=== PATIENT | female | born 1975 ===

== ENCOUNTER 2020-04-19 00:50 | Emergency (ER) | payer OTHER, SELFPAY ==
[2020-04-19 00:52] VITALS: BP 115/71; BP 166/86; PULSE 90; RESP 18; TEMP 36.4; O2SAT 100; O2SAT 98; BMI 32.5
--- NOTE | 2020-04-19 01:45 | ED.DENTAL ---
HPI - Dental/Oral General Chief complaint: Dental/Oral Stated complaint: toothache Time Seen by Provider: 04/19/20 01:45 Source: patient Mode of arrival: ambulatory Limitations: no limitations History of Present Illness HPI Narrative: This is a 45-year-old female who presents with worsening left lower dental pain with both heat and cold intolerance and mild facial swelling along the left cheek area. Otherwise, she denies any fevers, chills, difficulty swallowing, or difficulty breathing. Related Data Previous Rx's Medication Instructions Recorded irbesartan 300 mg tablet 300 mg PO DAILY #30 tab 03/16/20 lorazepam 1 mg tablet 1 mg PO BID PRN 30 Days #60 tab 04/01/20 oxycodone-acetaminophen 5 mg-325 1 tab PO .1 to 2 times a day PRN 04/01/20 mg tablet 28 Days #56 tab amoxicillin-pot clavulanate 1 tab PO Q12H 7 Days #14 tab 04/19/20 [Augmentin] Allergies Allergy/AdvReac Type Severity Reaction Status Date / Time nut - unspecified [NUTS] Allergy Severe HIVES, Unverified 02/06/20 15:23 ANAPHYLAXIS N.K.D.A. Allergy Unknown Uncoded 08/22/14 00:00 Review of Systems Review of Systems: Pertinent positives and negatives as stated in HPI 10 point review of systems is otherwise negative. PMFSH Past Medical History Source: nursing notes reviewed Medical History Anemia Fibromyalgia HTN (hypertension) Scoliosis Social History Social History Advance Directives: No Advance Directives Information Provided: No Physical Exam Vital Signs: Vital Signs: Last Vital Signs Temp 97.6 F 04/19/20 00:52 Pulse 97 04/19/20 02:00 Resp 20 04/19/20 02:00 BP 138/72 04/19/20 02:00 Pulse Ox 100 04/19/20 02:00 Body Mass Index 32.5 VITAL SIGNS: Reviewed. GENERAL: Well developed, well nourished, in no acute distress. HEAD: Normocephalic/atraumatic, EYES: PERRLA, EOMI intact without pain, no nystagmus/pallor/icterus noted EARS: Ext canals without abnormality, TMs non-bulging and non-erythematous NOSE: Nares patent bilateral OROPHARYNX: no oral lesions noted, posterior pharynx clear and non-erythematous without noted tonsillar enlargement/erythema/exudates , there is a noted left lower molar with extensive caries but no obvious abscess noted there is some mild swelling to the left face without trismus or involvement of the ear. NECK: Supple, no adenopathy LUNGS: Normal breath sounds. No adventitious sounds or accessory muscle use. SpO2<100> CARDIOVASCULAR: Regular rate and rhythm without noted murmurs, no JVD or lower extremity edema. ABDOMEN: Soft, non-tender, non-distended with bowel sounds. No rigidity. No guarding. No palpable masses or hernias noted MUSCULOSKELETAL: No tenderness, deformities, or effusions noted on gross inspection. EXTREMITIES: No cyanosis, clubbing or edema. SKIN: Inspection of the skin reveals no rashes, ulcerations, jaundice, pallor, or petechiae. NEUROLOGIC: Alert and oriented x 4. Strength and sensation to light touch were grossly intact x 4. Course Course Course Narrative: This is a 45-year-old female with history and clinical presentation consistent with left lower molar dental caries and patient will be treated with combination analgesics as well as initial antibiotics and then discharged to home in stable condition with a prescription and strong encouragement to follow up with a dental facility on Monday. Discharge Plan Discharge Clinical Impression: Dental caries Patient Disposition: Home, Self-Care Instructions: Dental Abscess (ED), Toothache (ED) Additional Instructions: 1. Tylenol 1000 mg, orally, every 6 hours as needed for pain control. Do not exceed 4000 mg within 24 hours. 2. Ibuprofen 400 mg, orally with milk food, every 6 hours as needed for pain control. 3. may use [id number] Anbesol or Orajel as directed on the outside packaging for additional symptom control. 4. may use ice for 5-10 minutes, 3 to 4 times a day, for additional symptom control. Do not apply ice directly to exposed skin. 5. please contact a dental facility Monday to arrange for immediate follow-up. The patient and/or family acknowledge understanding of results (as applicable), diagnosis, treatment plan, need for follow up, and symptoms that should prompt a return to the emergency room. Prescriptions: New amoxicillin-pot clavulanate [Augmentin] 875-125 mg tablet 1 tab PO Q12H 7 Days Qty: 14 RF: 0 No Action irbesartan 300 mg tablet 300 mg PO DAILY Qty: 30 RF: 3 oxycodone-acetaminophen 5-325 mg tablet 1 tab PO .1 to 2 times a day PRN (Reason: pain) 28 Days Qty: 56 RF: 0 lorazepam 1 mg tablet 1 mg PO BID PRN (Reason: anxiety) 30 Days Qty: 60 RF: 0
[2020-04-19 02:00] VITALS: BP 138/72; PULSE 97; RESP 20; O2SAT 100
[2020-04-19] MEDS: Amoxicillin/Potassium Clav 875 MG TABLET PO (02:11)
[2020-04-19] MEDS: Acetaminophen 325 MG TABLET 975 MG PO (02:11)
== END 2020-04-19 02:31 | disposition home or self-care (01) ==
LOC: HO.ED 01:55
PROVIDERS: Emergency Provider Student in an Organized Health Care Education/Training Program; PCP Internal Medicine
DX: K02.9 Dental caries, unspecified (principal); Z79.899 Other long term (current) drug therapy
CPT/HCPCS: 96372; 99284; J1885

== ENCOUNTER 2020-07-27 01:09 | Emergency (ER) | payer OTHER, SELFPAY ==
--- NOTE | ~2020-07-27 | CT_ITS ---
EXAMINATION: CT ABDOMEN AND PELVIS WITH CONTRAST CLINICAL INFORMATION: Right lower quadrant pain COMPARISON: None TECHNIQUE: Multidetector volumetric images were obtained from the superior aspect of the liver through the pubic symphysis following administration 76 mL of Omnipaque 350 intravenous contrast. Sagittal and coronal reformatted images were obtained on the technologist's workstation. Oral contrast: No This CT examination was performed using dose optimization techniques as appropriate, variously including the following: *Automated exposure control *Adjustment of mA and/or kV according to patient size (this includes techniques or standardized protocols for targeted exams where dose is matched to indication/reason for exam; i.e. extremities or head) *Use of iterative reconstruction technique DLP: 745 mGy-cm FINDINGS: Partially limited assessment in some regions due to motion artifact. LUNG BASES: The visualized lung bases are unremarkable. LIVER, GALLBLADDER, AND BILIARY TREE: The liver is normal in size, shape, and attenuation. A small focal region of hypoattenuation adjacent to the falciform ligament could be due to focal fatty infiltration or alterations in hepatic perfusion. No biliary ductal dilatation is present. The gallbladder is unremarkable with no evidence of radiopaque gallstones, gallbladder wall thickening, or obvious pericholecystic inflammatory changes. PANCREAS: Unremarkable. SPLEEN: Unremarkable. ADRENAL GLANDS: Unremarkable. KIDNEYS AND URETERS: The kidneys are normal in size, shape, and attenuation. No hydronephrosis, hydroureter, or obstructing calculi seen. Subcentimeter hypodensity in the upper right kidney is suggestive of a cyst though too small to characterize. No perinephric stranding. BLADDER: Unremarkable. GASTROINTESTINAL TRACT: Small hiatal hernia. No evidence of bowel obstruction or wall thickening. The appendix is unremarkable. No free fluid or free air is seen. ABDOMINAL WALL: Fat-containing umbilical hernia is present. LYMPH NODES: Normal. VASCULAR: Unremarkable. PELVIC VISCERA: Unremarkable. OSSEOUS STRUCTURES: Unremarkable. CT/CT abdomen pelvis w con IMPRESSION: 1. No acute findings identified in the abdomen/pelvis. Normal appendix. 2. Small hiatal hernia. 3. Fat-containing inguinal hernia.
--- NOTE | 2020-07-27 01:15 | ED.ABDPAIN ---
HPI - Abdominal Pain General Chief Complaint: Abdominal Pain Stated Complaint: LOWER ABD PAIN Time Seen by Provider: 07/27/20 01:11 Source: patient Mode of arrival: ambulatory Limitations: no limitations History of Present Illness HPI narrative: 45 yo female with 1 week of lower abdominal pain and nausea, the abdomen radiates across back, has had loose stools as well, no prior events MD elicited complaint: abdominal pain Pertinent past history: none Onset (ago): week(s) (1) Pain Consistency: intermittent Location: RLQ, LLQ and suprapubic Severity: moderate Quality: cramping Radiation: back Migration to: no migration Exacerbating factors: nothing Relieving factors: nothing Associated symptoms: nausea and diarrhea Related Data Previous Rx's Medication Instructions Recorded amoxicillin-pot clavulanate 1 tab PO Q12H 7 Days #14 tab 04/19/20 [Augmentin] lorazepam 1 mg tablet 1 mg PO BID PRN 30 Days #60 tab 07/01/20 oxycodone-acetaminophen 5 mg-325 1 tab PO .1 to 2 times a day PRN 07/01/20 mg tablet 28 Days #56 tab cyclobenzaprine 10 mg PO TID PRN #14 tab 07/27/20 dicyclomine 20 mg PO TID PRN #30 tab 07/27/20 irbesartan 300 mg tablet 300 mg PO DAILY #30 tab 07/27/20 ondansetron 4 mg PO Q8H PRN #20 tab 07/27/20 Allergies Allergy/AdvReac Type Severity Reaction Status Date / Time nut - unspecified [NUTS] Allergy Severe HIVES, Unverified 02/06/20 15:23 ANAPHYLAXIS N.K.D.A. Allergy Unknown Uncoded 08/22/14 00:00 Review of Systems Review of Systems Constitutional : No Weight loss, No Fever, No Chills ENT/Mouth : No sore throat, No Rhinorrhea Eyes: No Swelling, No Redness Cardiovascular : No Chest Pain, No SOB, NoEdema Respiratory : No Cough, No Sputum, No Wheezing Gastrointestinal : Positive Nausea, no Vomiting, positive Diarrhea, positive abdominal Pain, No Hematochezia, No Melena Genitourinary : No Dysuria, No Urinary Frequency, No Hematuria, No Urgency Musculoskeletal : No joint pain, No Myalgias, No Joint Swelling Skin : No Skin Lesions, No rash Neuro : No Weakness, No Numbness, No Dizziness, No Headache Psych : No Anxiety/Panic, No Depression Heme/Lymph: No Bruising, No Lymphadenopathy Endocrine : No Polyuria, No Polydipsia All other systems reviewed and are negative. Physical Exam Vital Signs: Vital Signs: Last Vital Signs Temp 98.1 F 07/27/20 01:24 Pulse 94 07/27/20 01:24 Resp 16 07/27/20 01:24 BP 180/83 H 07/27/20 01:24 Pulse Ox 100 07/27/20 01:24 Body Mass Index 34.4 Appearance: Alert. Oriented X3. No acute distress. Anxious Eyes: Pupils equal, round and reactive to light. ENT: Pharynx normal. Neck: Normal inspection. Neck supple. CVS: Normal heart rate and rhythm. Pulses normal. Respiratory: No respiratory distress. Breath sounds normal. Abdomen: Soft and moderate RLQ and suprapubic ttp no rebound or guarding, hernia noted midline but no discoloration, soft, no ttp Skin: Skin warm and dry. Normal skin color. Normal skin turgor. Extremities: No lower extremity edema. No calf ttp Neuro: Oriented X 3. No motor deficit. No sensory deficit. Course Course Course Narrative: no acute findings, hx of anemia will check guiac stool - if negative, will DC home with medications patient declines occult stool study patient feels much better, stable for DC MDM - Abdominal Pain MDM Narrative Medical decision making narrative: 45 yo female with hx of HTN, known hernia, s/p c section who comes in with 1 week or worsening lower abdominal pain, nausea, diarrhea was on antibiotics 4 weeks ago for a dental infection, at this time will need labs, IVF, CT scan for colitis/appendicitis, UA, IVF, IV toradol for pain, IV ativan for anxiety. Lab Data Result diagrams: 07/27/20 01:39 07/27/20 01:39 Labs: Lab Results 07/27/20 07/27/20 07/27/20 Range/Units 01:37 01:39 01:39 WBC 7.3 (4.8-10.8) X10*3/uL RBC 4.06 L (4.20-5.50) X10*6/uL Hgb 8.7 L (12.0-16.0) g/dl Hct 30.0 L (37-47) % MCV 73.9 L (80-98) fL MCH 21.4 L (27.0-33.0) pg MCHC 29.0 L (31.0-35.0) g/dl RDW 16.9 H (11.0-16.0) % Plt Count 287 (160-400) X10*3/uL MPV 10.4 (9.4-12.3) fL Immature Gran % (Auto) 0.1 (0.0-0.4) % Neut % (Auto) 54.5 (45-73) % Lymph % (Auto) 33.7 (20-40) % [place] % (Auto) 7.8 (2-11) % Eos % (Auto) 3.6 (0-4) % Baso % (Auto) 0.3 (0-2) % Lymph # (Auto) 2.5 (1.2-4.9) X10*3/uL [place] # (Auto) 0.6 (0.1-1.2) X10*3/uL Eos # (Auto) 0.3 (0.0-0.4) X10*3/uL Baso # (Auto) 0.0 (0.0-0.2) X10*3/uL Abs Immat Gran (auto) 0.01 (0.00-0.03) X10*3/uL Absolute Neuts (auto) 4.0 (2.0-8.3) X10*3/uL Absolute Nucleated RBC 0.000 (0.0-0.012) X10*3/uL Nucleated RBC % (auto) 0.0 (0.0-0.2) /100WBC PT (10.8-13.0) SEC INR (0.9-1.1) APTT (24.1-38.0) SEC Hold Blue Top Sodium 140 (135-145) mmol/L Potassium 3.5 (3.3-5.1) mmol/L Chloride 107 (96-108) mmol/L Carbon Dioxide 25 (22-29) mmol/L Anion Gap 12 (12-20) BUN 7 L (9-16) mg/dL Creatinine 0.75 (0.5-1.4) mg/dL Estim Creat Clear Calc 124.0 Estimated GFR > 60 Random Glucose 122 H (60-115) mg/dL Calcium 9.1 (8.4-10.2) mg/dL Magnesium 1.7 (1.6-2.6) mg/dL Total Bilirubin 0.4 (0.0-1.0) mg/dL Direct Bilirubin 0.2 (0.0-0.5) mg/dL AST 16 (5-31) U/L ALT 16 (0-31) U/L Alkaline Phosphatase 55 (39-117) U/L Total Protein 7.1 (6.5-8.0) g/dL Albumin 4.5 (3.5-5.0) g/dL Lipase (8-78) U/L Urine Color Urine Appearance Urine pH (5.0-8.0) Ur Specific [place] (1.005-1.025) Urine Protein (NEG-TRACE) MG/DL Urine Glucose (UA) (NEG) MG/DL Urine Ketones (NEG) MG/DL Urine Blood (NEG) Urine Nitrite (NEG) Ur Leukocyte Esterase (NEG) Urine Test (NEGATIVE) COVID-19 ([facility]) Negative (Negative) COVID-19 Clin Com See Note 07/27/20 07/27/20 07/27/20 Range/Units 01:39 01:39 01:52 WBC (4.8-10.8) X10*3/uL RBC (4.20-5.50) X10*6/uL Hgb (12.0-16.0) g/dl Hct (37-47) % MCV (80-98) fL MCH (27.0-33.0) pg MCHC (31.0-35.0) g/dl RDW (11.0-16.0) % Plt Count (160-400) X10*3/uL MPV (9.4-12.3) fL Immature Gran % (Auto) (0.0-0.4) % Neut % (Auto) (45-73) % Lymph % (Auto) (20-40) % [place] % (Auto) (2-11) % Eos % (Auto) (0-4) % Baso % (Auto) (0-2) % Lymph # (Auto) (1.2-4.9) X10*3/uL [place] # (Auto) (0.1-1.2) X10*3/uL Eos # (Auto) (0.0-0.4) X10*3/uL Baso # (Auto) (0.0-0.2) X10*3/uL Abs Immat Gran (auto) (0.00-0.03) X10*3/uL Absolute Neuts (auto) (2.0-8.3) X10*3/uL Absolute Nucleated RBC (0.0-0.012) X10*3/uL Nucleated RBC % (auto) (0.0-0.2) /100WBC PT 13.9 H (10.8-13.0) SEC INR 1.2 H (0.9-1.1) APTT 32.8 (24.1-38.0) SEC Hold Blue Top SEE NOTE Sodium (135-145) mmol/L Potassium (3.3-5.1) mmol/L Chloride (96-108) mmol/L Carbon Dioxide (22-29) mmol/L Anion Gap (12-20) BUN (9-16) mg/dL Creatinine (0.5-1.4) mg/dL Estim Creat Clear Calc Estimated GFR Random Glucose (60-115) mg/dL Calcium (8.4-10.2) mg/dL Magnesium (1.6-2.6) mg/dL Total Bilirubin (0.0-1.0) mg/dL Direct Bilirubin (0.0-0.5) mg/dL AST (5-31) U/L ALT (0-31) U/L Alkaline Phosphatase (39-117) U/L Total Protein (6.5-8.0) g/dL Albumin (3.5-5.0) g/dL Lipase 14 (8-78) U/L Urine Color YELLOW Urine Appearance CLEAR Urine pH 5.5 (5.0-8.0) Ur Specific [place] >= 1.030 H (1.005-1.025) Urine Protein NEG (NEG-TRACE) MG/DL Urine Glucose (UA) NEG (NEG) MG/DL Urine Ketones NEG (NEG) MG/DL Urine Blood NEG (NEG) Urine Nitrite NEG (NEG) Ur Leukocyte Esterase NEG (NEG) Urine Test (NEGATIVE) COVID-19 ([facility]) (Negative) COVID-19 Clin Com 03/08/21 Range/Units 01:52 WBC (4.8-10.8) X10*3/uL RBC (4.20-5.50) X10*6/uL Hgb (12.0-16.0) g/dl Hct (37-47) % MCV (80-98) fL MCH (27.0-33.0) pg MCHC (31.0-35.0) g/dl RDW (11.0-16.0) % Plt Count (160-400) X10*3/uL MPV (9.4-12.3) fL Immature Gran % (Auto) (0.0-0.4) % Neut % (Auto) (45-73) % Lymph % (Auto) (20-40) % [place] % (Auto) (2-11) % Eos % (Auto) (0-4) % Baso % (Auto) (0-2) % Lymph # (Auto) (1.2-4.9) X10*3/uL [place] # (Auto) (0.1-1.2) X10*3/uL Eos # (Auto) (0.0-0.4) X10*3/uL Baso # (Auto) (0.0-0.2) X10*3/uL Abs Immat Gran (auto) (0.00-0.03) X10*3/uL Absolute Neuts (auto) (2.0-8.3) X10*3/uL Absolute Nucleated RBC (0.0-0.012) X10*3/uL Nucleated RBC % (auto) (0.0-0.2) /100WBC PT (10.8-13.0) SEC INR (0.9-1.1) APTT (24.1-38.0) SEC Hold Blue Top Sodium (135-145) mmol/L Potassium (3.3-5.1) mmol/L Chloride (96-108) mmol/L Carbon Dioxide (22-29) mmol/L Anion Gap (12-20) BUN (9-16) mg/dL Creatinine (0.5-1.4) mg/dL Estim Creat Clear Calc Estimated GFR Random Glucose (60-115) mg/dL Calcium (8.4-10.2) mg/dL Magnesium (1.6-2.6) mg/dL Total Bilirubin (0.0-1.0) mg/dL Direct Bilirubin (0.0-0.5) mg/dL AST (5-31) U/L ALT (0-31) U/L Alkaline Phosphatase (39-117) U/L Total Protein (6.5-8.0) g/dL Albumin (3.5-5.0) g/dL Lipase (8-78) U/L Urine Color Urine Appearance Urine pH (5.0-8.0) Ur Specific [place] (1.005-1.025) Urine Protein (NEG-TRACE) MG/DL Urine Glucose (UA) (NEG) MG/DL Urine Ketones (NEG) MG/DL Urine Blood (NEG) Urine Nitrite (NEG) Ur Leukocyte Esterase (NEG) Urine Test NEGATIVE (NEGATIVE) COVID-19 ([facility]) (Negative) COVID-19 Clin Com Discharge Plan Discharge Clinical Impression: Abdominal pain, Anemia Patient Disposition: Home, Self-Care Instructions: Abdominal Pain (ED), Anemia (ED) Additional Instructions: return to ED for any worsening symptoms or concerns TAKE YOUR IRON PLEASE YOUR COUNTS DROPPED TO 8.7 YOUR COVID TEST WAS NEGATIVE Prescriptions: New cyclobenzaprine 10 mg tablet 10 mg PO TID PRN (Reason: muscle spasm) Qty: 14 RF: 0 dicyclomine 20 mg tablet 20 mg PO TID PRN (Reason: abdominal discomfort) Qty: 30 RF: 0 ondansetron 4 mg tablet,disintegrating 4 mg PO Q8H PRN (Reason: nausea and vomiting) Qty: 20 RF: 0 No Action oxycodone-acetaminophen 5-325 mg tablet 1 tab PO .1 to 2 times a day PRN (Reason: pain) 28 Days Qty: 56 RF: 0 lorazepam 1 mg tablet 1 mg PO BID PRN (Reason: anxiety) 30 Days Qty: 60 RF: 0 irbesartan 300 mg tablet 300 mg PO DAILY Qty: 30 RF: 3 amoxicillin-pot clavulanate [Augmentin] 875-125 mg tablet 1 tab PO Q12H 7 Days Qty: 14 RF: 0 Referrals: Bala Vasquez MD [Primary Care Provider] - 2 days (if not better) Stand Alone Forms: Work/School Release [facility] Past Medical History Attestation statement: The following information was validated with the patient. Medical History Anemia Fibromyalgia Hernia HTN (hypertension) Scoliosis Surgical History Hx of section Social History Social History (Updated 07/27/20 @ 01:30 by Kimberly Turner DO) Smoking Status: Never smoker Use of substances other than those prescribed or required for medical reasons: No Advance Directives: No
[2020-07-27 01:24] VITALS: BP 180/83; PULSE 94; RESP 16; TEMP 36.7; O2SAT 100; BMI 34.4
--- NOTE | 2020-07-27 01:33 | PC.NURSE ---
PT TO ROOM WITH C/O LOWER ABD PAIN WHICH RADIATES INTO SAVANA SIDES. +NAUSEA, NO VOMITING. PT ARRIVES ALERT, RESPIRATIONS EASY, N/L. SKIN W/D. PT AWAITING FOR MD'S EVAL.
[2020-07-27 01:57] LABS: MANUAL DIFF FLAG NO
[2020-07-27 01:59] LABS: Glucose Urine UA NEG (NEG); Leukocyte Esterase Urine NEG (NEG); Nitrite Urine NEG (NEG); PH 5.5 (5.0-8.0); Specific Gravity - Urine >= 1.030 (1.005-1.025); Urine Blood NEG (NEG); Urine Ketones NEG (NEG); Urine Protein NEG (NEG-TRACE)
[2020-07-27] MEDS: LORazepam 2 MG/ML VIAL 1 MG IVPUSH (01:59)
[2020-07-27 02:00] LABS: Basophils Percent Auto 0.3 % (0-2); Eosinophils Absolute Auto 0.3 X10*3/uL (0.0-0.4); Eosinophils Percent Auto 3.6 % (0-4); Hemoglobin 8.7 g/dl (12.0-16.0); Imm Gran Abs Auto 0.01 X10*3/uL (0.00-0.03); Imm Gran Pct Auto 0.1 % (0.0-0.4); Lymphocytes Absolute Auto 2.5 X10*3/uL (1.2-4.9); Lymphocytes Percent Auto 33.7 % (20-40); Mean Corpuscular Hemoglobin 21.4 pg (27.0-33.0); Mean Corpuscular Volume 73.9 fL (80-98); Mean Platelet Volume 10.4 fL (9.4-12.3); Monocytes Absolute Auto 0.6 X10*3/uL (0.1-1.2); Monocytes Percent Auto 7.8 % (2-11); Neutrophils Percent Auto 54.5 % (45-73); Platelet Count 287 X10*3/uL (160-400); Red Blood Count 4.06 X10*6/uL (4.20-5.50); Red Cell Distribution Width 16.9 % (11.0-16.0); White Blood Count 7.3 X10*3/uL (4.8-10.8)
[2020-07-27] MEDS: ondansetron HCL 4 MG/2 ML VIAL IVPUSH (02:00)
[2020-07-27] MEDS: 0.9 % Sodium Chloride 1,000 ML 999 ML IVCONT (02:01)
[2020-07-27] MEDS: Ketorolac Tromethamine 30 MG/ML VIAL IVPUSH (02:01)
[2020-07-27 02:02] LABS: Appearance Urine CLEAR; Color Urine YELLOW
[2020-07-27 02:03] LABS: UPreg QC Valid YES; Urine Pregnancy NEGATIVE (NEGATIVE)
[2020-07-27 02:07] LABS: INTERNATIONAL NORM RATIO 1.2 (0.9-1.1); Prothrombin Time 13.9 SEC (10.8-13.0)
[2020-07-27 02:09] LABS: Partial Thromboplastin Time 32.8 SEC (24.1-38.0)
[2020-07-27 02:11] LABS: IDNOW Serial# 9DD0AD1C
[2020-07-27 02:12] LABS: COVID-19 Test Negative (Negative)
[2020-07-27 02:22] LABS: Anion Gap 12 (12-20); Carbon Dioxide 25 mmol/L (22-29); Chloride 107 mmol/L (96-108); Lipase 14 U/L (8-78); Potassium 3.5 mmol/L (3.3-5.1); Sodium 140 mmol/L (135-145)
[2020-07-27 02:23] LABS: Alanine Aminotransferase 16 U/L (0-31); Albumin Level 4.5 g/dL (3.5-5.0); Alkaline Phosphatase 55 U/L (39-117); Aspartate Amino Transferase 16 U/L (5-31); Bilirubin Direct 0.2 mg/dL (0.0-0.5); Bilirubin Total 0.4 mg/dL (0.0-1.0); Blood Urea Nitrogen 7 mg/dL (9-16); Calcium 9.1 mg/dL (8.4-10.2); Estimated Glomerular Filt Rate > 60; Glucose Random 122 mg/dL (60-115); Magnesium 1.7 mg/dL (1.6-2.6); Total Protein 7.1 g/dL (6.5-8.0)
[2020-07-27] MEDS: iohexoL 350 MG/ML 75 ML INFUS..BTL IV (02:53)
--- NOTE | 2020-07-27 03:48 | PC.NURSE ---
This RN at bedside to vp outcomes MD for rectal exam. Pt refusing rectal exam, primary RN aware.
[2020-07-27 05:40] VITALS: BP 128/78; PULSE 90; RESP 16; O2SAT 98
[2020-07-27 05:44] VITALS: BP 128/78; PULSE 81; RESP 16; O2SAT 97
== END 2020-07-27 06:03 | disposition home or self-care (01) ==
PROVIDERS: Emergency Provider Emergency Medicine; PCP Internal Medicine
DX: R10.30 Lower abdominal pain, unspecified (principal); D64.9 Anemia, unspecified; Z20.822 Contact with and (suspected) exposure to COVID-19; K44.9 Diaphragmatic hernia without obstruction or gangrene; K40.90 Unilateral inguinal hernia, without obstruction or gangrene, not specified as recurrent; I10 Essential (primary) hypertension
CPT/HCPCS: 36415; 74177; 80048; 80076; 81003; 81025; 83690; 83735; 85025; 85610; 85730; 87635; 96361; 96374; 96375; 99283; 99284; J1885; J2060; J2405; Q9967

== ENCOUNTER 2020-08-05 12:18 | Emergency (ER) | payer OTHER, SELFPAY ==
--- NOTE | ~2020-08-05 | US_ITS ---
EXAMINATION: ULTRASOUND PELVIC, COMPLETE CLINICAL INFORMATION: Pelvic pain. COMPARISON: CT abdomen pelvis 07/27/2020 TECHNIQUE: Transvaginal: Used to better visualize pelvic structures Transabdominal: Not adequate for visualization. Spectral Doppler and color Doppler exam was utilized. LMP: The end of June FINDINGS: UTERUS: Unremarkable. Uterus measures 9.9 x 5.5 x 6.8 cm. Endometrial thickness is 1.4 cm. There is a small Nabothian cyst at the cervix. ADNEXA: Ovarian vascularity:Doppler demonstrates both arterial and venous vascular flow in the right and left ovary. No evidence of ovarian torsion. Right Ovary: 2.8 x 2.7 x 2.1 cm. Right ovarian volume 8 mL Left Ovary: 3.2 x 1.9 x 2.4 cm. Left ovarian volume 8 mL Cul-de-sac: No Fluid US/US pelvic complete IMPRESSION: Unremarkable examination.
--- NOTE | ~2020-08-05 | US_ITS ---
EXAMINATION: ULTRASOUND PELVIC, COMPLETE CLINICAL INFORMATION: Pelvic pain. COMPARISON: CT abdomen pelvis 07/27/2020 TECHNIQUE: Transvaginal: Used to better visualize pelvic structures Transabdominal: Not adequate for visualization. Spectral Doppler and color Doppler exam was utilized. LMP: The end of June FINDINGS: UTERUS: Unremarkable. Uterus measures 9.9 x 5.5 x 6.8 cm. Endometrial thickness is 1.4 cm. There is a small Nabothian cyst at the cervix. ADNEXA: Ovarian vascularity:Doppler demonstrates both arterial and venous vascular flow in the right and left ovary. No evidence of ovarian torsion. Right Ovary: 2.8 x 2.7 x 2.1 cm. Right ovarian volume 8 mL Left Ovary: 3.2 x 1.9 x 2.4 cm. Left ovarian volume 8 mL Cul-de-sac: No Fluid US/US transvaginal IMPRESSION: Unremarkable examination.
--- NOTE | ~2020-08-05 | US_ITS ---
EXAMINATION: ULTRASOUND PELVIC, COMPLETE CLINICAL INFORMATION: Pelvic pain. COMPARISON: CT abdomen pelvis 07/27/2020 TECHNIQUE: Transvaginal: Used to better visualize pelvic structures Transabdominal: Not adequate for visualization. Spectral Doppler and color Doppler exam was utilized. LMP: The end of June FINDINGS: UTERUS: Unremarkable. Uterus measures 9.9 x 5.5 x 6.8 cm. Endometrial thickness is 1.4 cm. There is a small Nabothian cyst at the cervix. ADNEXA: Ovarian vascularity:Doppler demonstrates both arterial and venous vascular flow in the right and left ovary. No evidence of ovarian torsion. Right Ovary: 2.8 x 2.7 x 2.1 cm. Right ovarian volume 8 mL Left Ovary: 3.2 x 1.9 x 2.4 cm. Left ovarian volume 8 mL Cul-de-sac: No Fluid US/US pelvic ovarian doppler IMPRESSION: Unremarkable examination.
[2020-08-05 12:29] VITALS: BP 143/82; PULSE 112; RESP 16; TEMP 36.9; O2SAT 99; BMI 31.7
[2020-08-05 13:21] LABS: MANUAL DIFF FLAG NO
[2020-08-05 13:23] LABS: Basophils Percent Auto 0.1 % (0-2); Eosinophils Absolute Auto 0.1 X10*3/uL (0.0-0.4); Eosinophils Percent Auto 1.1 % (0-4); Hematocrit 30.2 % (37-47); Hemoglobin 8.7 g/dl (12.0-16.0); Imm Gran Abs Auto 0.04 X10*3/uL (0.00-0.03); Imm Gran Pct Auto 0.4 % (0.0-0.4); Lymphocytes Absolute Auto 1.7 X10*3/uL (1.2-4.9); Lymphocytes Percent Auto 16.8 % (20-40); Mean Corpuscular HGB Conc 28.8 g/dl (31.0-35.0); Mean Corpuscular Hemoglobin 21.2 pg (27.0-33.0); Mean Corpuscular Volume 73.7 fL (80-98); Mean Platelet Volume 10.6 fL (9.4-12.3); Monocytes Absolute Auto 0.6 X10*3/uL (0.1-1.2); Neutrophils Absolute Auto 7.8 X10*3/uL (2.0-8.3); Neutrophils Percent Auto 75.6 % (45-73); Platelet Count 290 X10*3/uL (160-400); Red Cell Distribution Width 17.8 % (11.0-16.0); White Blood Count 10.3 X10*3/uL (4.8-10.8)
[2020-08-05] MEDS: Ketorolac Tromethamine 30 MG/ML VIAL IVPUSH (13:25)
[2020-08-05] MEDS: 0.9 % Sodium Chloride 1,000 ML 999 ML IV (13:25)
[2020-08-05 13:32] LABS: INTERNATIONAL NORM RATIO 1.2 (0.9-1.1)
[2020-08-05 13:34] LABS: Partial Thromboplastin Time 32.9 SEC (24.1-38.0)
[2020-08-05 13:39] LABS: Glucose Urine UA NEG (NEG); Leukocyte Esterase Urine NEG (NEG); Nitrite Urine NEG (NEG); PH 5.5 (5.0-8.0); Specific Gravity - Urine 1.025 (1.005-1.025); Urine Blood NEG (NEG); Urine Ketones NEG (NEG); Urine Protein NEG (NEG-TRACE)
[2020-08-05 13:41] LABS: Appearance Urine CLEAR; Color Urine YELLOW; UPreg QC Valid YES; Urine Pregnancy NEGATIVE (NEGATIVE)
[2020-08-05 13:55] LABS: Alanine Aminotransferase 18 U/L (0-31); Albumin Level 4.5 g/dL (3.5-5.0); Alkaline Phosphatase 60 U/L (39-117); Anion Gap 13 (12-20); Aspartate Amino Transferase 22 U/L (5-31); Bilirubin Total 0.6 mg/dL (0.0-1.0); Blood Urea Nitrogen 10 mg/dL (9-16); Calcium 9.3 mg/dL (8.4-10.2); Carbon Dioxide 22 mmol/L (22-29); Chloride 106 mmol/L (96-108); Creatinine Clr Calc Pharmacy 118.9; Estimated Glomerular Filt Rate > 60; Glucose Random 121 mg/dL (60-115); Potassium 3.8 mmol/L (3.3-5.1); Sodium 137 mmol/L (135-145); Total Protein 7.2 g/dL (6.5-8.0)
[2020-08-05 14:01] LABS: HCG Quantitative < 2 mIU/mL
--- NOTE | 2020-08-05 14:54 | ED.GENADULT ---
HPI - General Adult General Chief complaint: Abdominal Pain Stated complaint: anxiety,ovary pain Time Seen by Provider: 08/05/20 12:36 Source: patient Mode of arrival: ambulatory Limitations: no limitations History of Present Illness HPI narrative: Patient presents to ED feeling very anxious. Patient states feeling very nervous and has history of anxiety. Patient's secondary complaint is right groin/suprapubic pain that began this morning. Patient denies any dysuria, hematuria, vaginal bleeding,or vaginal discharge. Patient states she has not been sexually active for 4 months. Patient was seen on the of this month with similar symptoms and had CT scan which was normal. Related Data Previous Rx's Medication Instructions Recorded amoxicillin-pot clavulanate 1 tab PO Q12H 7 Days #14 tab 04/19/20 [Augmentin] lorazepam 1 mg tablet 1 mg PO BID PRN 30 Days #60 tab 07/01/20 cyclobenzaprine 10 mg PO TID PRN #14 tab 07/27/20 dicyclomine 20 mg PO TID PRN #30 tab 07/27/20 irbesartan 300 mg tablet 300 mg PO DAILY #30 tab 07/27/20 ondansetron 4 mg PO Q8H PRN #20 tab 07/27/20 ferrous sulfate 325 mg (65 mg 325 mg PO DAILY 30 Days #30 tab 07/31/20 iron) tablet oxycodone-acetaminophen 5 mg-325 1 tab PO .1 to 2 times a day PRN 07/31/20 mg tablet 28 Days #56 tab naproxen 500 mg PO BID PRN #20 tab 08/05/20 Allergies Allergy/AdvReac Type Severity Reaction Status Date / Time nut - unspecified [NUTS] Allergy Severe HIVES, Unverified 02/06/20 15:23 ANAPHYLAXIS N.K.D.A. Allergy Unknown Uncoded 08/22/14 00:00 Review of Systems Review of Systems: Yes all other systems are reviewed and are negative Constitutional: Constitutional: Reports as per HPI and Reports no additional constitutional complaints Eyes: Eyes: Reports as per HPI and Reports no additional eye complaints ENT: Reports system reviewed and no additional complaints, except as documented and Reports as per HPI Cardiovascular: Cardiovascular: Reports as per HPI and Reports no additional cardiovascular complaints Respiratory: Respiratory: Reports as per HPI and Reports no additional respiratory complaints Gastrointestinal: Gastrointestinal: Reports as per HPI and Reports no additional gastrointestinal complaints Comments: Right suprapubic/groin pain Genitourinary: Genitourinary: Reports no additional female genitourinary complaints and Reports as per HPI Musculoskeletal: Musculoskeletal: Reports no additional musculoskeletal complaints and Reports as per HPI Neurologic: Reports system reviewed and no additional complaints, except as documented and Reports as per HPI Psychiatric: Psychiatric: Reports no additional psychiatric complaints and Reports as per HPI [facility] Past Medical History Medical History Anemia Fibromyalgia Hernia HTN (hypertension) Scoliosis Surgical History Hx of section Social History Social History (Updated 07/27/20 @ 01:30 by Kimberly Turner DO) Smoking Status: Never smoker Advance Directives: Yes Advance Directives Information Provided: Yes Advance Directives on File: No Physical Exam Vital Signs: Vital Signs: Last Vital Signs Temp 99.3 F 08/05/20 17:52 Pulse 86 08/05/20 17:52 Resp 16 08/05/20 17:52 BP 135/70 08/05/20 17:52 Pulse Ox 99 08/05/20 17:52 Body Mass Index 31.7 Const: General: cooperative, healthy appearing, comfortable, no acute distress, well developed, alert and awake HENMT: Head: Yes normal to inspection and Yes No palpable skull fracture present Eyes: General: appearance normal, both eyes and all related structures Neck: Neck: Yes normal visual inspection, Yes full ROM, Yes no lymphadenopathy, Yes no meningeal signs, Yes trachea midline, Yes supple and No tender Chest: Chest palpation & inspection: normal inspection of the chest and normal palpation of entire chest wall Resp: Effort & Inspection: normal respiratory effort and able to speak in complete sentences Auscultation: clear to auscultation bilaterally Cardio: Jugular venous distension: no JVD Heart sounds: S1 normal heart sound present and S2 normal heart sound present GI: Other: Right groin negative for any palpable mass, guarding, or profuse tenderness Inspection: Yes normal to inspection and No abdominal wall ecchymosis Palpation (GI): Tenderness to palpation present (GI) suprapubicly and other; not in the epigastrum, not in the LLQ, not in the RLQ, not in the LUQ, not in the RUQ, not at McBurney's point, not periumbilically, Bran's sign negative, obturator sign negative, psoas sign negative, with no rebound tenderness and Rovsing's sign negative, no guarding and not rigid : General: No CVA tenderness Back/Spine/Pelvis: Back: no CVA tenderness, No CVA tenderness and No back tenderness Skin: General skin exam: no rashes or lesions noted and elasticity normal Neuro: General: gait normal, no meningeal signs and CN's II-XI intact bilaterally Cranial nerves: Yes CN's II-XII intact bilaterally Extrem: General: Yes normal to inspection and Yes full ROM Psych: Appearance: grossly normal, well kempt and not disheveled Course Course Course Narrative: Patient does not have any abdominal tenderness. Examination of right groin negative for palpable mass or much tenderness. Patient states she is very anxious like something to help her with anxiety. No focal point tenderness of abdomen or groin. Will offer pelvic exam. Reevaluation(s) Reevaluation #1: Patient refused pelvic exam. No need for repeat CT scan due to patient having any abdominal tenderness on palpation. Also right groin negative for any palpable mass to indicate incarcerated hernia. CT scan on the 8th showed fat inguinal hernia which usually does not lead to incarcerated hernia. Patient was sent for pelvic ultrasound to make sure there is no ovarian cysts or fibroids. Patient refused pelvic exam. Patient states feeling less anxious after receiving Ativan Reevaluation #2: Patient's ultrasound of the pelvic came back negative. Patient will be discharged with pain meds. Patient states pain resolved with Toradol Medical Decision Making MDM Narrative Medical decision making narrative: Abdominal pain. Pelvic pain Lab Data Result diagrams: 08/05/20 13:16 08/05/20 13:16 Labs: Lab Results 08/05/20 08/05/20 08/05/20 Range/Units 13:16 13:16 13:16 WBC 10.3 (4.8-10.8) X10*3/uL RBC 4.10 L (4.20-5.50) X10*6/uL Hgb 8.7 L (12.0-16.0) g/dl Hct 30.2 L (37-47) % MCV 73.7 L (80-98) fL MCH 21.2 L (27.0-33.0) pg MCHC 28.8 L (31.0-35.0) g/dl RDW 17.8 H (11.0-16.0) % Plt Count 290 (160-400) X10*3/uL MPV 10.6 (9.4-12.3) fL Immature Gran % (Auto) 0.4 (0.0-0.4) % Neut % (Auto) 75.6 H (45-73) % Lymph % (Auto) 16.8 L (20-40) % [place] % (Auto) 6.0 (2-11) % Eos % (Auto) 1.1 (0-4) % Baso % (Auto) 0.1 (0-2) % Lymph # (Auto) 1.7 (1.2-4.9) X10*3/uL [place] # (Auto) 0.6 (0.1-1.2) X10*3/uL Eos # (Auto) 0.1 (0.0-0.4) X10*3/uL Baso # (Auto) 0.0 (0.0-0.2) X10*3/uL Abs Immat Gran (auto) 0.04 H (0.00-0.03) X10*3/uL Absolute Neuts (auto) 7.8 (2.0-8.3) X10*3/uL Absolute Nucleated RBC 0.000 (0.0-0.012) X10*3/uL Nucleated RBC % (auto) 0.0 (0.0-0.2) /100WBC PT 14.0 H (10.8-13.0) SEC INR 1.2 H (0.9-1.1) APTT 32.9 (24.1-38.0) SEC Sodium 137 (135-145) mmol/L Potassium 3.8 (3.3-5.1) mmol/L Chloride 106 (96-108) mmol/L Carbon Dioxide 22 (22-29) mmol/L Anion Gap 13 (12-20) BUN 10 (9-16) mg/dL Creatinine 0.75 (0.5-1.4) mg/dL Estim Creat Clear Calc 118.9 Estimated GFR > 60 Random Glucose 121 H (60-115) mg/dL Calcium 9.3 (8.4-10.2) mg/dL Total Bilirubin 0.6 (0.0-1.0) mg/dL AST 22 (5-31) U/L ALT 18 (0-31) U/L Alkaline Phosphatase 60 (39-117) U/L Total Protein 7.2 (6.5-8.0) g/dL Albumin 4.5 (3.5-5.0) g/dL Beta HCG, Quant < 2 mIU/mL Urine Color Urine Appearance Urine pH (5.0-8.0) Ur Specific [place] (1.005-1.025) Urine Protein (NEG-TRACE) MG/DL Urine Glucose (UA) (NEG) MG/DL Urine Ketones (NEG) MG/DL Urine Blood (NEG) Urine Nitrite (NEG) Ur Leukocyte Esterase (NEG) Urine Test (NEGATIVE) 08/05/20 08/05/20 Range/Units 13:26 13:26 WBC (4.8-10.8) X10*3/uL RBC (4.20-5.50) X10*6/uL Hgb (12.0-16.0) g/dl Hct (37-47) % MCV (80-98) fL MCH (27.0-33.0) pg MCHC (31.0-35.0) g/dl RDW (11.0-16.0) % Plt Count (160-400) X10*3/uL MPV (9.4-12.3) fL Immature Gran % (Auto) (0.0-0.4) % Neut % (Auto) (45-73) % Lymph % (Auto) (20-40) % [place] % (Auto) (2-11) % Eos % (Auto) (0-4) % Baso % (Auto) (0-2) % Lymph # (Auto) (1.2-4.9) X10*3/uL [place] # (Auto) (0.1-1.2) X10*3/uL Eos # (Auto) (0.0-0.4) X10*3/uL Baso # (Auto) (0.0-0.2) X10*3/uL Abs Immat Gran (auto) (0.00-0.03) X10*3/uL Absolute Neuts (auto) (2.0-8.3) X10*3/uL Absolute Nucleated RBC (0.0-0.012) X10*3/uL Nucleated RBC % (auto) (0.0-0.2) /100WBC PT (10.8-13.0) SEC INR (0.9-1.1) APTT (24.1-38.0) SEC Sodium (135-145) mmol/L Potassium (3.3-5.1) mmol/L Chloride (96-108) mmol/L Carbon Dioxide (22-29) mmol/L Anion Gap (12-20) BUN (9-16) mg/dL Creatinine (0.5-1.4) mg/dL Estim Creat Clear Calc Estimated GFR Random Glucose (60-115) mg/dL Calcium (8.4-10.2) mg/dL Total Bilirubin (0.0-1.0) mg/dL AST (5-31) U/L ALT (0-31) U/L Alkaline Phosphatase (39-117) U/L Total Protein (6.5-8.0) g/dL Albumin (3.5-5.0) g/dL Beta HCG, Quant mIU/mL Urine Color YELLOW Urine Appearance CLEAR Urine pH 5.5 (5.0-8.0) Ur Specific [place] 1.025 (1.005-1.025) Urine Protein NEG (NEG-TRACE) MG/DL Urine Glucose (UA) NEG (NEG) MG/DL Urine Ketones NEG (NEG) MG/DL Urine Blood NEG (NEG) Urine Nitrite NEG (NEG) Ur Leukocyte Esterase NEG (NEG) Urine Test NEGATIVE (NEGATIVE) Discharge Plan Discharge Clinical Impression: Anxiety, Pelvic pain Patient Disposition: Home, Self-Care Instructions: Abdominal Pain (ED), Anxiety (ED), Pelvic Pain (ED) Additional Instructions: Return to the ED immediately for worsening pelvic pain, dysuria, hematuria, flank pain, fever, chills, swelling in groin, abdominal distension, abdominal pain, vaginal bleeding, or any other concerning symptoms. Prescriptions: New naproxen 500 mg tablet 500 mg PO BID PRN (Reason: pain) Qty: 20 RF: 0 No Action lorazepam 1 mg tablet 1 mg PO BID PRN (Reason: anxiety) 30 Days Qty: 60 RF: 0 irbesartan 300 mg tablet 300 mg PO DAILY Qty: 30 RF: 3 oxycodone-acetaminophen 5-325 mg tablet 1 tab PO .1 to 2 times a day PRN (Reason: pain) 28 Days Qty: 56 RF: 0 ferrous sulfate [Feosol] 325 mg (65 mg iron) tablet 325 mg PO DAILY 30 Days Qty: 30 RF: 3 cyclobenzaprine 10 mg tablet 10 mg PO TID PRN (Reason: muscle spasm) Qty: 14 RF: 0 dicyclomine 20 mg tablet 20 mg PO TID PRN (Reason: abdominal discomfort) Qty: 30 RF: 0 ondansetron 4 mg tablet,disintegrating 4 mg PO Q8H PRN (Reason: nausea and vomiting) Qty: 20 RF: 0 amoxicillin-pot clavulanate [Augmentin] 875-125 mg tablet 1 tab PO Q12H 7 Days Qty: 14 RF: 0 Referrals: Bala Vasquez MD [Primary Care Provider] - 2 days (Pelvic pain.) Interventions: ED Discharge Assessment Last Done: 08/05/20 19:09 Discharge Date/Time: 08/05/20 19:10 Print Language: Malay
[2020-08-05] MEDS: LORazepam 1 MG TABLET PO (15:12)
[2020-08-05 15:24] VITALS: BP 142/82; PULSE 91; RESP 16; TEMP 37.3; O2SAT 99
[2020-08-05 17:52] VITALS: BP 135/70; PULSE 86; RESP 16; TEMP 37.4; O2SAT 99
== END 2020-08-05 19:10 | disposition home or self-care (01) ==
PROVIDERS: Physician Assistant; Emergency Provider Emergency Medicine; PCP Internal Medicine
DX: F41.9 Anxiety disorder, unspecified (principal); R10.2 Pelvic and perineal pain; I10 Essential (primary) hypertension; K40.90 Unilateral inguinal hernia, without obstruction or gangrene, not specified as recurrent
CPT/HCPCS: 36415; 76830; 76856; 80053; 81003; 81025; 84702; 85025; 85610; 85730; 93975; 96361; 96374; 99284; J1885

== ENCOUNTER 2021-03-16 22:57 | Emergency (ER) | payer OTHER, SELFPAY ==
[2021-03-16 23:05] VITALS: BP 159/90; PULSE 90; RESP 20; TEMP 37.6; O2SAT 100; BMI 30.4
--- NOTE | 2021-03-17 00:03 | ED.ANXIETY ---
HPI - Anxiety General Chief Complaint: Anxiety Stated Complaint: anxiety Time Seen by Provider: 03/16/21 23:28 History of Present Illness HPI narrative: Patient is a 46-year-old female with a history of anxiety. Baseline on Ativan. Presented today with having more anxiety. Patient denies any suicidal homicidal ideation. Positive generalized malaise. No cough no congestion or upper respiratory symptoms. Positive history of hypertension. Patient denies any recreational drug use. Feels very weak. Related Data Previous Rx's Medication Instructions Recorded amoxicillin 875 mg-potassium 1 tab PO Q12H 7 Days #14 tab 04/19/20 clavulanate 125 mg tablet (Augmentin) cyclobenzaprine 10 mg tablet 10 mg PO TID PRN #14 tab 07/27/20 dicyclomine 20 mg tablet 20 mg PO TID PRN #30 tab 07/27/20 ondansetron 4 mg disintegrating 4 mg PO Q8H PRN #20 tab 07/27/20 tablet naproxen 500 mg tablet 500 mg PO BID PRN #20 tab 08/05/20 ferrous sulfate 325 mg (65 mg 325 mg PO DAILY #30 tab 11/26/20 iron) tablet irbesartan 300 mg tablet 300 mg PO DAILY #30 tab 11/26/20 oxycodone-acetaminophen 5 mg-325 1 tab PO .1 to 2 times a day PRN 7 12/29/20 mg tablet Days #14 tab lorazepam 1 mg tablet 1 mg PO BID PRN 30 Days #60 tab 01/21/21 oxycodone-acetaminophen 5 mg-325 1 tab PO .1 to 2 times a day PRN 02/16/21 mg tablet 28 Days #56 tab Allergies Allergy/AdvReac Type Severity Reaction Status Date / Time nut - unspecified [NUTS] Allergy Severe HIVES, Verified 03/16/21 23:05 ANAPHYLAXIS Review of Systems Review of Systems: No fever no chills no diaphoresis Yes all other systems are reviewed and are negative PMFSH Past Medical History Attestation statement: The following information was validated with the patient. Medical History Anemia Fibromyalgia Hernia HTN (hypertension) Scoliosis Surgical History Hx of section Social History Social History Advance Directives: No Physical Exam Vital Signs: Vital Signs: Last Vital Signs Temp 99.6 F 03/16/21 23:05 Pulse 90 03/16/21 23:05 Resp 20 03/16/21 23:05 BP 159/90 H 03/16/21 23:05 Pulse Ox 100 03/16/21 23:05 Body Mass Index 30.4 Appearance: Alert. Oriented X3. No acute distress. Eyes: Pupils equal, round and reactive to light. ENT: Pharynx normal. Neck: Normal inspection. Neck supple. No lymph nodes noted. No crepitus CVS: Normal heart rate and rhythm. Pulses normal. Normal S1 and S2 Respiratory: No respiratory distress. Breath sounds normal. No Wheezing. No rales Abdomen: Soft and nontender. No rigidity. No distention. good BS x4 Skin: Skin warm and dry. Normal skin color. Normal skin turgor. Extremities: No lower extremity edema. Neurovascular intact to all extremities. No Lacerations. No Rash Neuro: Oriented X 3. No motor deficit. No sensory deficit. Moving all extermities. No slurred speech MDM - Anxiety MDM Narrative Medical decision making narrative: was going check patient's urine for infection. Given an Ativan for anxiety. Patient eloped prior to labs can come back. Discharge Plan Discharge Clinical Impression: Acute anxiety Patient Disposition: Elopement Prescriptions: No Action irbesartan 300 mg tablet 300 mg PO DAILY Qty: 30 RF: 3 ferrous sulfate 325 mg (65 mg iron) tablet 325 mg PO DAILY Qty: 30 RF: 3 oxycodone-acetaminophen 5-325 mg tablet 1 tab PO .1 to 2 times a day PRN (Reason: pain) 7 Days Qty: 14 RF: 0 lorazepam 1 mg tablet 1 mg PO BID PRN (Reason: anxiety) 30 Days Qty: 60 RF: 0 oxycodone-acetaminophen 5-325 mg tablet 1 tab PO .1 to 2 times a day PRN (Reason: pain) 28 Days Qty: 56 RF: 0 cyclobenzaprine 10 mg tablet 10 mg PO TID PRN (Reason: muscle spasm) Qty: 14 RF: 0 dicyclomine 20 mg tablet 20 mg PO TID PRN (Reason: abdominal discomfort) Qty: 30 RF: 0 ondansetron 4 mg tablet,disintegrating 4 mg PO Q8H PRN (Reason: nausea and vomiting) Qty: 20 RF: 0 amoxicillin-pot clavulanate [Augmentin] 875-125 mg tablet 1 tab PO Q12H 7 Days Qty: 14 RF: 0 naproxen 500 mg tablet 500 mg PO BID PRN (Reason: pain) Qty: 20 RF: 0
[2021-03-17] MEDS: LORazepam 0.5 MG TABLET PO (00:09)
--- NOTE | 2021-03-17 00:45 | PC.NURSE ---
Patient medicated for anxiety per emar as noted. Patient did not appear anxious as she was very calm. Approximated 15 minutes later when pct went to take patient vitals and collect urine she was unable to locate patient. Patient left with child all bathrooms checked, checked in with security about patient leaving and informed MD. Patient is not anywhere in the building.
--- NOTE | 2021-03-17 00:55 | PC.NURSE ---
Phone call made to patient's residence. Patient answered the phone and stated that she felt uncomfortable in the oneil bed and went home to be more comfortable and fell asleep. Patient states she feels better and is going to call her MD in the morning.l
== END 2021-03-17 01:18 | disposition left against medical advice (07) ==
PROVIDERS: Emergency Provider Emergency Medicine Emergency Medical Services; PCP Internal Medicine
DX: F41.9 Anxiety disorder, unspecified (principal); R53.81 Other malaise; I10 Essential (primary) hypertension; Z79.899 Other long term (current) drug therapy
CPT/HCPCS: 99283

== ENCOUNTER 2021-03-30 20:28 | Emergency (ER) | payer OTHER, SELFPAY | END 2021-03-30 22:13 | disposition left against medical advice (07) | PROVIDERS: Emergency Provider Emergency Medicine; PCP Internal Medicine | DX: R11.10 Vomiting, unspecified (principal); R06.02 Shortness of breath ==

== ENCOUNTER 2021-10-03 01:59 | Emergency (ER) | payer OTHER, SELFPAY ==
[2021-10-03 02:14] VITALS: BP 171/76; PULSE 97; RESP 16; TEMP 36.9; O2SAT 98; BMI 31.0
[2021-10-03 03:02] LABS: Appearance Urine HAZY; Color Urine YELLOW; Glucose Urine UA NEG (NEG); Leukocyte Esterase Urine NEG (NEG); Nitrite Urine NEG (NEG); PH 7.5 (5.0-8.0); Specific Gravity - Urine 1.015 (1.005-1.025); Urine Blood NEG (NEG); Urine Ketones NEG (NEG); Urine Protein NEG (NEG-TRACE)
[2021-10-03 03:10] LABS: MANUAL DIFF FLAG NO
[2021-10-03 03:11] LABS: Basophils Percent Auto 0.1 % (0-2); Eosinophils Absolute Auto 0.2 X10*3/uL (0.0-0.4); Eosinophils Percent Auto 1.9 % (0-4); Hematocrit 29.2 % (37.0-47.0); Hemoglobin 8.3 g/dl (12.0-16.0); Imm Gran Abs Auto 0.02 X10*3/uL (0.00-0.03); Imm Gran Pct Auto 0.2 % (0.0-0.4); Lymphocytes Absolute Auto 1.5 X10*3/uL (1.2-4.9); Lymphocytes Percent Auto 17.5 % (20-40); Mean Corpuscular HGB Conc 28.4 g/dl (31.0-35.0); Mean Corpuscular Hemoglobin 21.3 pg (27.0-33.0); Mean Corpuscular Volume 75.1 fL (80.0-98.0); Mean Platelet Volume 9.8 fL (9.4-12.3); Monocytes Absolute Auto 0.6 X10*3/uL (0.1-1.2); Monocytes Percent Auto 7.1 % (2-11); Neutrophils Absolute Auto 6.1 x10*3/uL (2.0-8.3); Neutrophils Percent Auto 73.2 % (45-73); Platelet Count 345 X10*3/uL (160-400); Red Blood Count 3.89 X10*6/uL (4.20-5.50); Red Cell Distribution Width 17.9 % (11.0-16.0); White Blood Count 8.4 X10*3/uL (4.8-10.8)
[2021-10-03 03:40] LABS: Alanine Aminotransferase 12 U/L (0-31); Alkaline Phosphatase 60 U/L (39-117); Anion Gap 11 (12-20); Aspartate Amino Transferase 13 U/L (5-31); Bilirubin Total 0.3 mg/dL (0.0-1.0); Blood Urea Nitrogen 12 mg/dL (9-16); Calcium 9.3 mg/dL (8.4-10.2); Carbon Dioxide 28 mmol/L (22-29); Chloride 103 mmol/L (96-108); Creatinine Clr Calc Pharmacy 124.6; Estimated Glomerular Filt Rate > 60; Glucose Random 123 mg/dL (60-115); Potassium 4.3 mmol/L (3.3-5.1); Sodium 138 mmol/L (135-145); Total Protein 6.9 g/dL (6.5-8.0)
[2021-10-03] MEDS: Lidocaine 4 % Patch ADH..PATCH 1 PATCH TRANSDERMA (05:19)
--- NOTE | 2021-10-03 05:20 | ED.BACK ---
HPI - Back Pain/Injury General Chief Complaint: Back Pain/Injury Stated Complaint: low back pain/ no injury Time Seen by Provider: 10/03/21 04:46 Source: patient Mode of arrival: ambulatory History of Present Illness HPI Narrative: 46-year-old female with history of depression and anxiety presents with atraumatic lower back discomfort that is not been associated with any fever, chills, urinary symptoms, bowel or bladder dysfunction and she denies any radiation into either lower extremity. Patient states that she does suffer from lower back pain and has a special needs son and feels that this may have been involved in her increase of back pain level. Related Data Previous Rx's Medication Instructions Recorded dicyclomine 20 mg tablet 20 mg PO TID PRN #30 tab 07/27/20 ondansetron 4 mg disintegrating 4 mg PO Q8H PRN #20 tab 07/27/20 tablet ferrous sulfate 325 mg (65 mg 325 mg PO DAILY #30 tab 08/11/21 iron) tablet irbesartan 300 mg tablet 300 mg PO DAILY #30 tab 08/11/21 escitalopram oxalate 10 mg tablet 10 mg PO DAILY 30 Days #30 tab 08/16/21 lorazepam 1 mg tablet 1 mg PO BID PRN 30 Days #60 tab 09/24/21 oxycodone-acetaminophen 5 mg-325 1 tab PO .1 to 2 times a day PRN 09/24/21 mg tablet 28 Days #56 tab ketorolac 10 mg tablet 10 mg PO Q6H PRN 5 Days #20 tab 10/03/21 Allergies Allergy/AdvReac Type Severity Reaction Status Date / Time nut - unspecified [NUTS] Allergy Severe HIVES, Verified 03/31/21 16:11 ANAPHYLAXIS Review of Systems Review of Systems: Pertinent positives and negatives as stated in HPI 10 point review of systems is otherwise negative. [facility] Past Medical History Source: nursing notes reviewed Medical History Anemia Fibromyalgia Hernia HTN (hypertension) Scoliosis Surgical History Hx of section Social History Social History Alcohol intake: never Patient Tobacco Use Status: Never used Tobacco Advance Directives: No Physical Exam Vital Signs: Vital Signs: Last Vital Signs Temp 98.5 F 10/03/21 02:14 Pulse 97 10/03/21 02:14 Resp 16 10/03/21 02:14 BP 171/76 H 10/03/21 02:14 Pulse Ox 98 10/03/21 02:14 BMI result Body Mass Index 31.0 VITAL SIGNS: Reviewed. GENERAL: Well developed, well nourished, anxious. HEAD: Normocephalic/atraumatic EYES: PERRLA, EOMI EARS: Ext canals without abnormality OROPHARYNX: no oral lesions noted, posterior pharynx clear LUNGS: Normal breath sounds. No adventitious sounds or accessory muscle use. SpO2<98> CARDIOVASCULAR: Regular rate and rhythm without noted murmurs ABDOMEN: Soft, non-tender, non-distended with bowel sounds. BACK: No midline vertebral tenderness and discomfort is a horizontal band across the lower back MUSCULOSKELETAL: No tenderness, deformities, or effusions noted on gross inspection. EXTREMITIES: No cyanosis, clubbing or edema. SKIN: Inspection of the skin reveals rash to upper extremity. NEUROLOGIC: Alert and oriented x 4. Strength and sensation to light touch were grossly intact x 4. Course Course Course Narrative: 46-year-old female with acute on chronic back pain, review of all investigations negative for acute findings from baseline. Patient was provided with combination analgesics as well as lidocaine patch will be discharged home with muscle relaxant as well. Patient does have mild rash to upper extremities and recommend Benadryl. On re-evaluation patient is feeling better and is discharged home in stable condition. MDM - Back Pain/Injury Lab Data Result diagrams: 10/03/21 03:05 10/03/21 03:05 Labs: Lab Results 10/03/21 10/03/21 10/03/21 Range/Units 02:48 03:05 03:05 WBC 8.4 (4.8-10.8) X10*3/uL RBC 3.89 L (4.20-5.50) X10*6/uL Hgb 8.3 L (12.0-16.0) g/dl Hct 29.2 L (37.0-47.0) % MCV 75.1 L (80.0-98.0) fL MCH 21.3 L (27.0-33.0) pg MCHC 28.4 L (31.0-35.0) g/dl RDW 17.9 H (11.0-16.0) % Plt Count 345 (160-400) X10*3/uL MPV 9.8 (9.4-12.3) fL Immature Gran % (Auto) 0.2 (0.0-0.4) % Neut % (Auto) 73.2 H (45-73) % Lymph % (Auto) 17.5 L (20-40) % [place] % (Auto) 7.1 (2-11) % Eos % (Auto) 1.9 (0-4) % Baso % (Auto) 0.1 (0-2) % Lymph # (Auto) 1.5 (1.2-4.9) X10*3/uL [place] # (Auto) 0.6 (0.1-1.2) X10*3/uL Eos # (Auto) 0.2 (0.0-0.4) X10*3/uL Baso # (Auto) 0.0 (0.0-0.2) X10*3/uL Abs Immat Gran (auto) 0.02 (0.00-0.03) X10*3/uL Absolute Neuts (auto) 6.1 (2.0-8.3) x10*3/uL Absolute Nucleated RBC 0.000 (0.0-0.012) X10*3/uL Nucleated RBC % (auto) 0.0 (0.0-0.2) /100WBC Sodium 138 (135-145) mmol/L Potassium 4.3 (3.3-5.1) mmol/L Chloride 103 (96-108) mmol/L Carbon Dioxide 28 (22-29) mmol/L Anion Gap 11 L (12-20) BUN 12 (9-16) mg/dL Creatinine 0.70 (0.5-1.4) mg/dL Estim Creat Clear Calc 124.6 Estimated GFR > 60 Random Glucose 123 H (60-115) mg/dL Calcium 9.3 (8.4-10.2) mg/dL Total Bilirubin 0.3 (0.0-1.0) mg/dL AST 13 D (5-31) U/L ALT 12 (0-31) U/L Alkaline Phosphatase 60 (39-117) U/L Total Protein 6.9 (6.5-8.0) g/dL Albumin 4.0 (3.5-5.0) g/dL Urine Color YELLOW Urine Appearance HAZY Urine pH 7.5 (5.0-8.0) Ur Specific [place] 1.015 (1.005-1.025) Urine Protein NEG (NEG-TRACE) MG/DL Urine Glucose (UA) NEG (NEG) MG/DL Urine Ketones NEG (NEG) MG/DL Urine Blood NEG (NEG) Urine Nitrite NEG (NEG) Ur Leukocyte Esterase NEG (NEG) Discharge Plan Discharge Clinical Impression: Back pain, Anxiety, Depression Patient Disposition: Home, Self-Care Instructions: Back Pain (ED) Additional Instructions: 1. Tylenol 1000 mg, orally, every 6 hours as needed for pain control. Do not exceed 4000 mg within 24 hours. 2. Lidocaine patch apply to area of maximal pain as directed on the outside packaging. 3. Recommend [id number] Benadryl as needed for rash and follow-up with your primary care provider by calling the office on Monday. Return to the ER for any worsening symptoms. Prescriptions: New ketorolac 10 mg tablet 10 mg PO Q6H PRN (Reason: pain) 5 Days Qty: 20 0RF Rx Instructions: Patient received Toradol in the emergency room. Please instruct patient to stop all other NSAIDs. No Action ferrous sulfate 325 mg (65 mg iron) tablet 325 mg PO DAILY Qty: 30 3RF irbesartan 300 mg tablet 300 mg PO DAILY Qty: 30 3RF escitalopram oxalate 10 mg tablet 10 mg PO DAILY 30 Days Qty: 30 2RF oxycodone-acetaminophen 5-325 mg tablet 1 tab PO .1 to 2 times a day PRN (Reason: pain) 28 Days Qty: 56 0RF lorazepam 1 mg tablet 1 mg PO BID PRN (Reason: anxiety) 30 Days Qty: 60 0RF dicyclomine 20 mg tablet 20 mg PO TID PRN (Reason: abdominal discomfort) Qty: 30 0RF ondansetron 4 mg tablet,disintegrating 4 mg PO Q8H PRN (Reason: nausea and vomiting) Qty: 20 0RF Referrals: Bala Vasquez MD [Primary Care Provider] -
[2021-10-03] MEDS: Acetaminophen 325 MG TABLET 975 MG PO (05:22)
[2021-10-03] MEDS: hydrOXYzine HCL 25 MG TABLET PO (05:22)
[2021-10-03] MEDS: Ketorolac Tromethamine 15 MG/ML VIAL IM (05:23)
[2021-10-03 05:24] VITALS: BP 158/65; PULSE 89; RESP 20; TEMP 37.1; O2SAT 98
== END 2021-10-03 05:49 | disposition home or self-care (01) ==
PROVIDERS: Emergency Provider Student in an Organized Health Care Education/Training Program; PCP Internal Medicine
DX: M54.50 Low back pain, unspecified (principal); F41.9 Anxiety disorder, unspecified; F32.A Depression, unspecified; R21 Rash and other nonspecific skin eruption; I10 Essential (primary) hypertension
CPT/HCPCS: 36415; 80053; 81003; 85025; 96372; 99284; J1885

== ENCOUNTER 2021-10-20 14:51 | Outpatient (REF) | payer OTHER, SELFPAY ==
[2021-10-20 15:03] LABS: MANUAL DIFF FLAG NO
[2021-10-20 15:23] LABS: Basophils Percent Auto 0.1 % (0-2); Eosinophils Absolute Auto 0.1 X10*3/uL (0.0-0.4); Eosinophils Percent Auto 1.7 % (0-4); Hematocrit 29.9 % (37.0-47.0); Hemoglobin 8.4 g/dl (12.0-16.0); Imm Gran Abs Auto 0.02 X10*3/uL (0.00-0.03); Imm Gran Pct Auto 0.2 % (0.0-0.4); Immature Retic Fraction 18.6 % (3.0-15.9); Lymphocytes Absolute Auto 1.5 X10*3/uL (1.2-4.9); Lymphocytes Percent Auto 18.5 % (20-40); Mean Corpuscular HGB Conc 28.1 g/dl (31.0-35.0); Mean Corpuscular Hemoglobin 21.8 pg (27.0-33.0); Mean Corpuscular Volume 77.7 fL (80.0-98.0); Mean Platelet Volume 10.7 fL (9.4-12.3); Monocytes Absolute Auto 0.5 X10*3/uL (0.1-1.2); Neutrophils Absolute Auto 6.1 x10*3/uL (2.0-8.3); Neutrophils Percent Auto 73.5 % (45-73); Platelet Count 269 X10*3/uL (160-400); Red Blood Count 3.85 X10*6/uL (4.20-5.50); Red Cell Distribution Width 19.4 % (11.0-16.0); Retic HGB Equivalent 22.3 pg (30.0-35.0); Reticulocyte Percent 1.9 % (0.5-1.8); Reticulocytes Absolute 0.074 X10*6/uL (0.026-0.095); White Blood Count 8.3 X10*3/uL (4.8-10.8)
[2021-10-20 15:53] LABS: Iron 320 mcg/dL (30-160); Percent Iron Saturation 78 % (15-50); Total Iron Binding Capacity 410 mcg/dL (228-428); Unsaturated Iron Binding 90 ug/dL
[2021-10-20 16:22] LABS: Folate 14.2 ng/mL (> or = 4.0); Vitamin B12 429 pg/mL (200-900)
[2021-10-21 10:22] LABS: Lactate Dehydrogenase 193 U/L (122-220)
[2021-10-21 10:44] LABS: Ferritin 4 ng/mL (10-250)
[2021-10-22 14:17] LABS: Haptoglobin 213 mg/dL (43-212)
== END 2021-10-20 14:52 | disposition home or self-care (01) ==
LOC: HO.LAB 14:51
PROVIDERS: PCP Internal Medicine; Visit Provider Internal Medicine
DX: D64.9 Anemia, unspecified (principal); I10 Essential (primary) hypertension; D50.9 Iron deficiency anemia, unspecified; E53.8 Deficiency of other specified B group vitamins
CPT/HCPCS: 36415; 82607; 82668; 82728; 82746; 83010; 83540; 83615; 85025; 85045

== ENCOUNTER → 2021-10-21 09:10 | Outpatient (BNV) | payer OTHER, SELFPAY | PROVIDERS: PCP Internal Medicine; Referring Provider Internal Medicine; Visit Provider Internal Medicine Medical Oncology | DX: D64.9 Anemia, unspecified (principal) | CPT/HCPCS: 99204; 99212; 99213 ==

== ENCOUNTER → 2021-11-05 12:59 | Outpatient (BNVA) | payer OTHER, SELFPAY | PROVIDERS: PCP Internal Medicine; Referring Provider Internal Medicine; Visit Provider Surgery | DX: K42.9 Umbilical hernia without obstruction or gangrene (principal); D50.9 Iron deficiency anemia, unspecified; K58.9 Irritable bowel syndrome, unspecified; I10 Essential (primary) hypertension; E66.9 Obesity, unspecified; Z68.29 Body mass index [BMI] 29.0-29.9, adult | CPT/HCPCS: 99202 ==

== ENCOUNTER 2021-12-12 03:08 | Emergency (ER) | payer OTHER, SELFPAY ==
[2021-12-12 03:12] VITALS: BP 133/83; PULSE 92; O2SAT 100
[2021-12-12 03:17] VITALS: BP 155/94; PULSE 86; RESP 16; TEMP 35.8; O2SAT 99; BMI 30.7
[2021-12-12 04:18] LABS: COVID-19 Test Negative (Negative); IDNOW Serial# 16C4AD1C; Influenza A Negative (Negative); Influenza B2 Negative (Negative)
== END 2021-12-12 05:59 | disposition left against medical advice (07) ==
PROVIDERS: Emergency Provider Emergency Medicine
DX: R68.83 Chills (without fever) (principal); R06.02 Shortness of breath; Z20.822 Contact with and (suspected) exposure to COVID-19; Z79.899 Other long term (current) drug therapy
CPT/HCPCS: 87502; 87635; 99281; 99282

== ENCOUNTER 2022-02-08 11:44 | Outpatient (REF) | payer OTHER, SELFPAY ==
--- NOTE | ~2022-02-08 | MM_ITS ---
EXAMINATION: MM SCREENING DIGITAL BREAST TOMOSYNTHESIS, BILATERAL CLINICAL INFORMATION: Screening. Asymptomatic. Benign right ultrasound-guided biopsy 2013, fibroadenoma. The lifetime risk of breast cancer based on the Tyrer-Cuzick Model is 6%. COMPARISON: Mammography: 02/26/2019, 04/12/2013, 04/09/2013 TECHNIQUE: Digital breast tomosynthesis is performed in both the craniocaudal and mediolateral oblique views along with computer-aided detection (CAD). Synthesized 2D images are generated from the tomosynthesis. FINDINGS: The breasts are heterogeneously dense, which may obscure small masses (ACR BI-RADS breast composition Category c). Tissue composition borders on average fibroglandular. Parenchymal pattern is similar to prior studies and there is no significant mass or architectural abnormality. There is a stable macrolobulated nodule central right breast with adjacent biopsy clip marker consistent with the fibroadenoma sampled in 2012. No abnormal calcifications on the left. The right breast has increased regional calcifications central and lower breast since 2019. Patient will be recalled for additional magnification views to fully characterize. MM/MM tomosynthesis screening BI IMPRESSION: Right: -Increased regional calcifications central and lower breast. Left: -No mammographic evidence of malignancy. ASSESSMENT: BI-RADS 0: Incomplete - Need Additional Imaging Evaluation RECOMMENDATION: 1. Additional views of the right breast (magnification CC, magnification ML). 2. Radiology department staff will contact the patient for additional imaging. This patient's information was entered into a reminder system with a target due date for their next mammogram.
== END 2022-02-08 11:45 | disposition home or self-care (01) ==
LOC: HO.MAMMO 11:44
PROVIDERS: PCP Hospitalist; Visit Provider Hospitalist
DX: Z12.31 Encounter for screening mammogram for malignant neoplasm of breast (principal)
CPT/HCPCS: 77063; 77067

== ENCOUNTER 2022-02-15 10:23 | Outpatient (REF) | payer OTHER, SELFPAY ==
--- NOTE | ~2022-02-15 | MM_ITS ---
EXAMINATION: MM DIAGNOSTIC DIGITAL MAMMOGRAPHY, RIGHT CLINICAL INFORMATION: Recall from screening for increased regional calcifications central and lower right breast. TC score 6%. COMPARISON: Mammography: 02/08/2022, 02/26/2019 TECHNIQUE: Digital mammography is performed in the following views: Magnification CC, magnification ML. FINDINGS: The breasts are heterogeneously dense, which may obscure small masses (ACR BI-RADS breast composition Category c). The magnification views show benign-appearing scattered uniform small round calcifications central and lower right breast without focal grouping or ductal distribution or pleomorphic types. Results are discussed with the patient at time of visit. MM/MM added views RT IMPRESSION: Additional views demonstrate benign scattered round regional calcifications. ASSESSMENT: BI-RADS 2: Benign RECOMMENDATION: Routine annual mammography screening. This patient's information was entered into a reminder system with a target due date for their next mammogram.
== END 2022-02-15 10:24 | disposition home or self-care (01) ==
LOC: HO.MAMMO 10:23
PROVIDERS: PCP Hospitalist; Visit Provider Hospitalist
DX: R92.1 Mammographic calcification found on diagnostic imaging of breast (principal)
CPT/HCPCS: 77065

== ENCOUNTER 2022-04-26 13:29 | Outpatient (REF) | payer OTHER, SELFPAY ==
[2022-04-26 13:47] LABS: MANUAL DIFF FLAG NO
[2022-04-26 15:43] LABS: Basophils Percent Auto 0.2 % (0-2); Eosinophils Absolute Auto 0.2 X10*3/uL (0.0-0.4); Eosinophils Percent Auto 1.8 % (0-4); Hematocrit 34.1 % (37.0-47.0); Hemoglobin 10.6 g/dl (12.0-16.0); Imm Gran Abs Auto 0.11 X10*3/uL (0.00-0.03); Imm Gran Pct Auto 1.2 % (0.0-0.4); Lymphocytes Absolute Auto 1.5 X10*3/uL (1.2-4.9); Lymphocytes Percent Auto 16.1 % (20-40); Mean Corpuscular HGB Conc 31.1 g/dl (31.0-35.0); Mean Corpuscular Volume 86.8 fL (80.0-98.0); Mean Platelet Volume 11.6 fL (9.4-12.3); Monocytes Absolute Auto 0.6 X10*3/uL (0.1-1.2); Neutrophils Absolute Auto 6.9 x10*3/uL (2.0-8.3); Neutrophils Percent Auto 74.7 % (45-73); Platelet Count 260 X10*3/uL (160-400); Red Blood Count 3.93 X10*6/uL (4.20-5.50); Red Cell Distribution Width 13.3 % (11.0-16.0); White Blood Count 9.3 X10*3/uL (4.8-10.8)
[2022-04-26 16:13] LABS: Alanine Aminotransferase 11 U/L (0-31); Albumin Level 4.3 g/dL (3.5-5.0); Alkaline Phosphatase 50 U/L (39-117); Anion Gap 11 (12-20); Aspartate Amino Transferase 13 U/L (5-31); Bilirubin Total 0.4 mg/dL (0.0-1.0); Blood Urea Nitrogen 14 mg/dL (9-16); Calcium 9.3 mg/dL (8.4-10.2); Carbon Dioxide 27 mmol/L (22-29); Chloride 106 mmol/L (96-108); Cholesterol 171 mg/dL; Estimated Glomerular Filt Rate > 60; Glucose Fasting 91 mg/dL (60-99); HDL Cholesterol 59 mg/dL; LDL Cholesterol Calculated 98 mg/dl; Sodium 140 mmol/L (135-145); TSH reflex Free T4 0.95 uIU/mL (0.32-4.0); Triglycerides 71 mg/dL; Vitamin D 25-OH Total 17.3 ng/mL (>30)
== END 2022-04-26 13:30 | disposition home or self-care (01) ==
LOC: HO.LAB 13:29
PROVIDERS: PCP Internal Medicine; Visit Provider Internal Medicine
DX: Z00.00 Encounter for general adult medical examination without abnormal findings (principal); D64.9 Anemia, unspecified; E78.00 Pure hypercholesterolemia, unspecified; E55.9 Vitamin D deficiency, unspecified; K58.9 Irritable bowel syndrome, unspecified; I10 Essential (primary) hypertension
CPT/HCPCS: 36415; 80053; 80061; 82306; 84443; 85025

== ENCOUNTER 2022-08-30 14:04 | Outpatient (REF) | payer OTHER, SELFPAY ==
[2022-08-30 14:14] LABS: MANUAL DIFF FLAG NO
[2022-08-30 14:32] LABS: Basophils Percent Auto 0.2 % (0-2); Eosinophils Absolute Auto 0.1 X10*3/uL (0.0-0.4); Eosinophils Percent Auto 1.3 % (0-4); Hemoglobin 10.1 g/dl (12.0-16.0); Imm Gran Abs Auto 0.05 X10*3/uL (0.00-0.03); Imm Gran Pct Auto 0.6 % (0.0-0.4); Lymphocytes Absolute Auto 1.9 X10*3/uL (1.2-4.9); Lymphocytes Percent Auto 21.4 % (20-40); Mean Corpuscular HGB Conc 31.6 g/dl (31.0-35.0); Mean Corpuscular Hemoglobin 26.7 pg (27.0-33.0); Mean Corpuscular Volume 84.7 fL (80.0-98.0); Mean Platelet Volume 11.2 fL (9.4-12.3); Monocytes Absolute Auto 0.5 X10*3/uL (0.1-1.2); Monocytes Percent Auto 5.8 % (2-11); Neutrophils Absolute Auto 6.4 x10*3/uL (2.0-8.3); Neutrophils Percent Auto 70.7 % (45-73); Platelet Count 274 X10*3/uL (160-400); Red Blood Count 3.78 X10*6/uL (4.20-5.50); Red Cell Distribution Width 13.9 % (11.0-16.0)
[2022-08-30 14:52] LABS: Appearance Urine Clear; Color Urine Yellow; Glucose Urine UA Negative (Negative); Leukocyte Esterase Urine Negative (Negative); Nitrite Urine Negative (Negative); Specific Gravity - Urine 1.025 (1.005-1.025); Urine Blood Negative (Negative); Urine Ketones Trace mg/dL (Negative); Urine Protein Negative (Neg-Trace)
[2022-08-30 15:25] LABS: Alanine Aminotransferase 11 U/L (0-31); Albumin Level 4.1 g/dL (3.5-5.0); Alkaline Phosphatase 47 U/L (39-117); Anion Gap 11 (12-20); Aspartate Amino Transferase 13 U/L (5-31); Bilirubin Total 0.5 mg/dL (0.0-1.0); Blood Urea Nitrogen 9 mg/dL (9-16); Calcium 9.3 mg/dL (8.4-10.2); Carbon Dioxide 27 mmol/L (22-29); Chloride 107 mmol/L (96-108); Estimated Glomerular Filt Rate > 60; Glucose Random 99 mg/dL (60-115); Iron 37 mcg/dL (30-160); Percent Iron Saturation 12 % (15-50); Sodium 141 mmol/L (135-145); TSH reflex Free T4 1.15 uIU/mL (0.32-4.0); Total Iron Binding Capacity 312 mcg/dL (228-428); Total Protein 6.6 g/dL (6.5-8.0); Unsaturated Iron Binding 275 ug/dL; Vitamin D 25-OH Total 14.9 ng/mL (>30)
== END 2022-08-30 14:05 | disposition home or self-care (01) ==
LOC: HO.LAB 14:04
PROVIDERS: PCP Internal Medicine; Visit Provider Internal Medicine
DX: Z00.00 Encounter for general adult medical examination without abnormal findings (principal); D50.9 Iron deficiency anemia, unspecified; R53.83 Other fatigue; E55.9 Vitamin D deficiency, unspecified; R30.0 Dysuria
CPT/HCPCS: 36415; 80053; 81003; 82306; 83540; 84443; 85025

== ENCOUNTER 2022-10-27 02:18 | Emergency (ER) | payer OTHER, SELFPAY ==
--- NOTE | ~2022-10-27 | CT_ITS ---
EXAMINATION: CT ABDOMEN AND PELVIS WITH CONTRAST CLINICAL INFORMATION: Bilateral lower quadrant pain COMPARISON: 07/27/2020 TECHNIQUE: Multidetector volumetric images were obtained from the superior aspect of the liver through the pubic symphysis following administration 85 mL of Omnipaque 350 intravenous contrast. Sagittal and coronal reformatted images were obtained on the technologist's workstation. Oral contrast: No This CT examination was performed using dose optimization techniques as appropriate, variously including the following: *Automated exposure control *Adjustment of mA and/or kV according to patient size (this includes techniques or standardized protocols for targeted exams where dose is matched to indication/reason for exam; i.e. extremities or head) *Use of iterative reconstruction technique DLP: 576 mGy-cm FINDINGS: LUNG BASES: The visualized lung bases are unremarkable. LIVER, GALLBLADDER, AND BILIARY TREE: The liver is normal in size, shape, and attenuation. Focal fatty infiltration along the falciform. No focal hepatic lesion or biliary ductal dilatation is present. The gallbladder is unremarkable with no evidence of radiopaque gallstones, gallbladder wall thickening, or obvious pericholecystic inflammatory changes. PANCREAS: Unremarkable. SPLEEN: Unremarkable. ADRENAL GLANDS: Unremarkable. KIDNEYS AND URETERS: The kidneys are normal in size, shape, and attenuation. No hydronephrosis, hydroureter, or calculi seen. No perinephric stranding. Small simple bilateral renal cysts. No specific follow-up recommended. BLADDER: Unremarkable. GASTROINTESTINAL TRACT: Small hiatal hernia. Normal caliber small bowel. No obstruction. Normal appendix. Scattered colonic diverticulosis without diverticulitis. No free air or free fluid. ABDOMINAL WALL: Fat-containing left periumbilical hernia. LYMPH NODES: Normal. VASCULAR: Unremarkable. PELVIC VISCERA: Anteverted uterus. Septate configuration. No adnexal mass. OSSEOUS STRUCTURES: No acute or suspicious osseous abnormality. Mild levoscoliosis. CT/CT abdomen pelvis w IV con IMPRESSION: No acute findings in the abdomen or pelvis. No inflammatory changes. Fleischner guidelines were followed.
[2022-10-27 02:22] VITALS: BP 173/96; PULSE 113; RESP 18; TEMP 36.4; O2SAT 99; BMI 31.0
--- NOTE | 2022-10-27 02:31 | ED.ABDPAIN ---
HPI - Abdominal Pain General Chief Complaint: Abdominal Pain Stated Complaint: lower abd pain Time Seen by Provider: 10/27/22 02:24 Source: patient Mode of arrival: ambulatory Limitations: no limitations History of Present Illness HPI narrative: Patient comes to the emergency room complaining of 1 week of bilateral lower quadrant pain. Patient states that she usually takes ibuprofen and then the pain subsides. However, the pain kept actually getting worse despite taking pain medications. Also, patient complaining of feeling fatigued for about a week, patient has history of anemia, takes iron. Patient complaining of mild nausea, no vomiting diarrhea, no fever chills, no URI or UTI symptoms. Related Data Previous Rx's Medication Instructions Recorded ascorbic acid (vitamin C) 500 mg 500 mg PO BID #60 tabs 10/21/21 tablet (Vitamin C) ferrous sulfate 325 mg (65 mg 325 mg PO DAILY #30 tabs 08/01/22 iron) tablet irbesartan 300 mg tablet 300 mg PO DAILY 90 days #90 tabs 09/07/22 amlodipine 2.5 mg tablet 2.5 mg PO DAILY 30 days #30 tabs 10/06/22 lorazepam 1 mg tablet 1 mg PO BID PRN anxiety 30 days 10/07/22 #60 tabs oxycodone-acetaminophen 5 mg-325 1 tab PO .1 to 2 times a day PRN 10/07/22 mg tablet pain 28 days #56 tabs nitrofurantoin 100 mg PO Q12H 7 days #14 caps 10/27/22 monohydrate/macrocrystals 100 mg capsule (Macrobid) phenazopyridine 100 mg tablet 100 mg PO TID 6 doses #6 tabs 10/27/22 Allergies Allergy/AdvReac Type Severity Reaction Status Date / Time nut - unspecified [NUTS] Allergy Severe HIVES, Verified 09/02/22 13:13 ANAPHYLAXIS Review of Systems Review of Systems Constitutional : No Weight loss, No Fever, No Chills, No Night Sweats, complaining of fatigue ENT/Mouth : No Hearing loss, No Ear Pain, No Nasal Congestion, No Sinus Pain, No Hoarseness, No sore throat, No Rhinorrhea, No Swallowing Difficulty Eyes: No Eye Pain, No Swelling, No Redness, No Foreign Body, No Discharge, No Vision Changes Cardiovascular : No Chest Pain, No SOB, No Dyspnea on Exertion, No Orthopnea, No Edema, No Palpitations Respiratory : No Cough, No Sputum, No Wheezing, No Smoke Exposure, No Dyspnea Gastrointestinal : Complaining of Nausea, No Vomiting, No Diarrhea, No Constipation, complaining of bilateral lower quadrant pain Genitourinary : no irregular bleeding, No Dysuria, No Urinary Frequency, No Hematuria, No Urinary Incontinence, No Urgency, No Flank Pain, No Urinary Flow Changes, No Hesitancy Musculoskeletal : No joint pain, No Myalgias, No Joint Swelling Skin : No Skin Lesions, No rash Neuro : No Weakness, No Numbness, No Paresthesias, No Loss of Consciousness, No Dizziness, No Headache Psych : No Anxiety/Panic, No Depression, No SI/HI/AH/VH, No Social Issues, Heme/Lymph: No Bruising, No Bleeding,No Lymphadenopathy, known to have anemia Endocrine : No Polyuria, No Polydipsia, No Temperature Intolerance PMFSH Past Medical History Medical History Anemia Benign essential hypertension Fibromyalgia Hernia Hives HTN (hypertension) Irritable bowel syndrome (IBS) Low back pain Migraine Obesity (BMI 30-39.9) Scoliosis Umbilical hernia without obstruction and without gangrene Surgical History Hx of section Family History Family History Maternal Aunt Cancer Social History Social History Household Members: Children Housing: Apartment Are you a primary early breastfeeding care specialist to a significant other at home: No Do you presently have visiting nurse or other home services: No Alcohol intake: never Patient Tobacco Use Status: Never used Tobacco Smoked in Last 30 Days: No Second Hand Smoke Exposure: No Use of substances other than those prescribed or required for medical reasons: No Advance Directives: No Advance Directives Information Provided: No service: No Current occupational status: disabled Cognitive needs: No Hearing needs: No Vision needs: No Physical Exam ED Vital Signs: Vital Signs - 24 hr 10/27/22 02:22 10/27/22 04:00 Temperature 97.5 F 98.3 F Pulse Rate 113 H 78 Respiratory Rate 18 16 Blood Pressure 173/96 H 131/81 Pulse Oximetry 99 100 Oxygen Delivery Method Room Air Room Air BMI result Body Mass Index 31.0 Const Other: Appearance: Alert. Oriented X3. No acute distress. Eyes: Pupils equal, round and reactive to light. ENT: Pharynx normal. Neck: Normal inspection. Neck supple. No lymph nodes noted. No crepitus CVS: Normal heart rate and rhythm. Pulses normal. Normal S1 and S2 Respiratory: No respiratory distress. Breath sounds normal. No Wheezing. No rales Abdomen: Soft and nontender. No rigidity. No distention. None incarcerated and reducible umbilical hernia Skin: Skin warm and dry. Patient looks diffusely pale,. Normal skin turgor. Extremities: No lower extremity edema. No Lacerations. No Rash Neuro: Oriented X 3. No motor deficit. No sensory deficit. Moving all extremities. No slurred speech. CN 2 through 12 grossly intact Psych: calm, cooperative, normal affect Course Course Course Narrative: -all of patient's labs and imaging pending Medical Decision Making Medical Decision Making [facility] Narrative: -interpretation of CT scan: No obstruction, no air-fluid levels. No obvious changes. -patient received IV fluids, pain medication, patient states that she feels much better. -white blood cell count within normal limits -patient's urinalysis shows trace leukocyte esterase. Given the patient's symptoms, we will go ahead and treat. Consult Healthcare Provider Management of the patient was discussed with: Hospitalist Lab Data [facility] Lab Attestation statement: I reviewed the patient's lab results. 10/27/22 02:32 10/27/22 02:32 Labs: Lab Results 10/27/22 10/27/22 10/27/22 Range/Units 02:32 02:32 02:36 WBC 9.5 (4.8-10.8) X10*3/uL RBC 4.30 (4.20-5.50) X10*6/uL Hgb 12.0 (12.0-16.0) g/dl Hct 36.7 L (37.0-47.0) % MCV 85.3 (80.0-98.0) fL MCH 27.9 (27.0-33.0) pg MCHC 32.7 (31.0-35.0) g/dl RDW 14.1 (11.0-16.0) % Plt Count 221 (160-400) X10*3/uL MPV 11.3 (9.4-12.3) fL Absolute Nucleated RBC 0.000 (0.0-0.012) X10*3/uL Nucleated RBC % (auto) 0.0 (0.0-0.2) /100WBC Sodium 141 (135-145) mmol/L Potassium 3.7 (3.3-5.1) mmol/L Chloride 110 H (96-108) mmol/L Carbon Dioxide 22 (22-29) mmol/L Anion Gap 13 (12-20) BUN 10 (9-16) mg/dL Creatinine 0.77 (0.5-1.4) mg/dL Estim Creat Clear Calc 112.1 Estimated GFR > 60 Random Glucose 129 H (60-115) mg/dL Calcium 9.8 (8.4-10.2) mg/dL Total Bilirubin 0.5 (0.0-1.0) mg/dL AST 17 (5-31) U/L ALT 13 (0-31) U/L Alkaline Phosphatase 52 (39-117) U/L Total Protein 7.3 (6.5-8.0) g/dL Albumin 4.4 (3.5-5.0) g/dL Lipase 19 (8-78) U/L Urine Color Urine Appearance Urine pH (5.0-9.0) Ur Specific [place] (1.005-1.025) Urine Protein (Neg-Trace) mg/dL Urine Glucose (UA) (Negative) mg/dL Urine Ketones (Negative) mg/dL Urine Blood (Negative) Urine Nitrite (Negative) Ur Leukocyte Esterase (Negative) Urine RBC (0-2) /HPF Urine WBC (0-5) /HPF Ur Squamous Epith Cells (0-2) /HPF Urine Bacteria (None Seen) Hyaline Casts (0-2) /LPF Blood Type A Positive Antibody Screen NEGATIVE 10/27/22 Range/Units 02:47 WBC (4.8-10.8) X10*3/uL RBC (4.20-5.50) X10*6/uL Hgb (12.0-16.0) g/dl Hct (37.0-47.0) % MCV (80.0-98.0) fL MCH (27.0-33.0) pg MCHC (31.0-35.0) g/dl RDW (11.0-16.0) % Plt Count (160-400) X10*3/uL MPV (9.4-12.3) fL Absolute Nucleated RBC (0.0-0.012) X10*3/uL Nucleated RBC % (auto) (0.0-0.2) /100WBC Sodium (135-145) mmol/L Potassium (3.3-5.1) mmol/L Chloride (96-108) mmol/L Carbon Dioxide (22-29) mmol/L Anion Gap (12-20) BUN (9-16) mg/dL Creatinine (0.5-1.4) mg/dL Estim Creat Clear Calc Estimated GFR Random Glucose (60-115) mg/dL Calcium (8.4-10.2) mg/dL Total Bilirubin (0.0-1.0) mg/dL AST (5-31) U/L ALT (0-31) U/L Alkaline Phosphatase (39-117) U/L Total Protein (6.5-8.0) g/dL Albumin (3.5-5.0) g/dL Lipase (8-78) U/L Urine Color Yellow Urine Appearance Clear Urine pH 7.5 (5.0-9.0) Ur Specific [place] 1.015 (1.005-1.025) Urine Protein Negative (Neg-Trace) mg/dL Urine Glucose (UA) Negative (Negative) mg/dL Urine Ketones Negative (Negative) mg/dL Urine Blood Negative (Negative) Urine Nitrite Negative (Negative) Ur Leukocyte Esterase Trace H (Negative) Urine RBC 0-2 (0-2) /HPF Urine WBC 0-5 (0-5) /HPF Ur Squamous Epith Cells 0-2 (0-2) /HPF Urine Bacteria None Seen (None Seen) Hyaline Casts 0-2 (0-2) /LPF Blood Type Antibody Screen Radiology Impression Discussion of test interpretation with radiology: I have reviewed the radiologist's reading. Radiologist Impression: FINDINGS: LUNG BASES: The visualized lung bases are unremarkable.? LIVER, GALLBLADDER, AND BILIARY TREE: The liver is normal in size, shape, and attenuation. Focal fatty infiltration along the falciform. No focal hepatic lesion or biliary ductal dilatation is present. The gallbladder is unremarkable with no evidence of radiopaque gallstones, gallbladder wall thickening, or obvious pericholecystic inflammatory changes.? PANCREAS: Unremarkable.? SPLEEN: Unremarkable.? ADRENAL GLANDS: Unremarkable.? KIDNEYS AND URETERS: The kidneys are normal in size, shape, and attenuation. No hydronephrosis, hydroureter, or calculi seen. No perinephric stranding. Small simple bilateral renal cysts. No specific follow-up recommended. BLADDER: Unremarkable.? GASTROINTESTINAL TRACT: Small hiatal hernia. Normal caliber small bowel. No obstruction. Normal appendix. Scattered colonic diverticulosis without diverticulitis. No free air or free fluid.? ABDOMINAL WALL: Fat-containing left periumbilical hernia.? LYMPH NODES: Normal. VASCULAR: Unremarkable. PELVIC VISCERA: Anteverted uterus. Septate configuration. No adnexal mass.? OSSEOUS STRUCTURES: No acute or suspicious osseous abnormality. Mild levoscoliosis.? CT/CT abdomen pelvis w IV con IMPRESSION: No acute findings in the abdomen or pelvis. No inflammatory changes. ? Fleischner guidelines were followed. Medications Administered Discontinued Medications Generic Name Dose Route Start Last Admin Trade Name Freq PRN Reason Stop Dose Admin Iohexol 85 ml 10/27/22 03:27 10/27/22 03:28 Iohexol 350 Mg/Ml 100 Ml Infus..Btl IV 10/27/22 03:28 85 ml ONCE ONE Administration Morphine Sulfate 4 mg 10/27/22 03:09 10/27/22 03:13 Morphine Sulfate 4 Mg/Ml Cartridge IVPUSH 10/27/22 03:10 4 mg ONCE ONE Administration Protocol Ondansetron HCl 4 mg 10/27/22 03:09 10/27/22 03:13 Ondansetron Hcl 4 Mg/2 Ml Vial IVPUSH 10/27/22 03:10 4 mg ONCE ONE Administration Discharge Plan Discharge Clinical Impression: Abdominal pain, UTI (urinary tract infection) Patient Disposition: Home, Self-Care Instructions: Urinary Tract Infection in Women (ED) Additional Instructions: And a few medications will turn your urine very red water taking it, the urine will return to normal wants to stop taking it. Please follow-up with your primary care physician tomorrow. If you have any worsening or new symptoms, please return to the emergency room or call 911 Prescriptions: New nitrofurantoin monohyd/m-cryst [Macrobid] 100 mg capsule 100 mg PO Q12H 7 Days Qty: 14 0RF Rx Instructions: must administer with a meal/food phenazopyridine 100 mg tablet 100 mg PO TID Qty: 6 0RF No Action ferrous sulfate 325 mg (65 mg iron) tablet 325 mg PO DAILY Qty: 30 3RF irbesartan 300 mg tablet 300 mg PO DAILY 90 Days Qty: 90 1RF amlodipine 2.5 mg tablet 2.5 mg PO DAILY 30 Days Qty: 30 1RF oxycodone-acetaminophen 5-325 mg tablet 1 tab PO .1 to 2 times a day PRN (Reason: pain) 28 Days Qty: 56 0RF lorazepam 1 mg tablet 1 mg PO BID PRN (Reason: anxiety) 30 Days Qty: 60 0RF ascorbic acid (vitamin C) [Vitamin C] 500 mg Tablet 500 mg PO BID Qty: 60 3RF
[2022-10-27 02:42] LABS: Hematocrit 36.7 % (37.0-47.0); Mean Corpuscular HGB Conc 32.7 g/dl (31.0-35.0); Mean Corpuscular Hemoglobin 27.9 pg (27.0-33.0); Mean Corpuscular Volume 85.3 fL (80.0-98.0); Mean Platelet Volume 11.3 fL (9.4-12.3); Platelet Count 221 X10*3/uL (160-400); Red Cell Distribution Width 14.1 % (11.0-16.0); White Blood Count 9.5 X10*3/uL (4.8-10.8)
[2022-10-27 02:56] LABS: Appearance Urine Clear; Color Urine Yellow; Glucose Urine UA Negative (Negative); Leukocyte Esterase Urine Trace (Negative); Nitrite Urine Negative (Negative); PH 7.5 (5.0-9.0); Specific Gravity - Urine 1.015 (1.005-1.025); UMIC TRIGGER UACC YES; Urine Blood Negative (Negative); Urine Ketones Negative (Negative); Urine Protein Negative (Neg-Trace)
[2022-10-27 03:03] LABS: Alanine Aminotransferase 13 U/L (0-31); Albumin Level 4.4 g/dL (3.5-5.0); Alkaline Phosphatase 52 U/L (39-117); Anion Gap 13 (12-20); Aspartate Amino Transferase 17 U/L (5-31); Bilirubin Total 0.5 mg/dL (0.0-1.0); Blood Urea Nitrogen 10 mg/dL (9-16); Calcium 9.8 mg/dL (8.4-10.2); Carbon Dioxide 22 mmol/L (22-29); Chloride 110 mmol/L (96-108); Creatinine Clr Calc Pharmacy 112.1; Estimated Glomerular Filt Rate > 60; Glucose Random 129 mg/dL (60-115); Lipase 19 U/L (8-78); Potassium 3.7 mmol/L (3.3-5.1); Sodium 141 mmol/L (135-145); Total Protein 7.3 g/dL (6.5-8.0)
[2022-10-27 03:04] LABS: Bacteria Urine None Seen (None Seen); Hyaline Casts Urine 0-2 /LPF (0-2); RBC Urine 0-2 /HPF (0-2); Squamous Epithelial Cell Urine 0-2 /HPF (0-2); WBC Urine 0-5 /HPF (0-5)
[2022-10-27] MEDS: Morphine Sulfate 4 MG/ML CARTRIDGE IVPUSH (03:13)
[2022-10-27] MEDS: ondansetron HCL 4 MG/2 ML VIAL IVPUSH (03:13)
[2022-10-27] MEDS: iohexoL 350 MG/ML 100 ML INFUS..BTL 85 ML IV (03:28)
[2022-10-27 04:00] VITALS: BP 131/81; PULSE 78; RESP 16; TEMP 36.8; O2SAT 100
[2022-10-27] MEDS: Nitrofurantoin Monohyd/M-Cryst 100 MG CAPSULE PO (04:30)
--- NOTE | 2022-10-27 04:30 | PC.NURSE ---
Patient alert and oriented. Resting quietly. Vitals stable. Administered medication as per JUL.
== END 2022-10-27 04:43 | disposition home or self-care (01) ==
PROVIDERS: Emergency Provider Emergency Medicine; PCP Internal Medicine
DX: N39.0 Urinary tract infection, site not specified (principal); R10.30 Lower abdominal pain, unspecified; I10 Essential (primary) hypertension; Z79.899 Other long term (current) drug therapy
CPT/HCPCS: 36415; 74177; 80053; 81001; 81003; 83690; 85027; 86850; 86900; 86901; 96374; 96375; 99284; J2270; J2405; Q9967

== ENCOUNTER 2022-12-14 14:25 | Outpatient (AMB) | payer OTHER, SELFPAY ==
[2022-12-14 14:33] VITALS: BP 138/90; PULSE 76; O2SAT 100; BMI 28.4
--- NOTE | 2022-12-14 14:33 | MHC.PC.OV ---
Vital Signs 12/14/22 14:33 Height 5 ft 9 in Weight 192 lb BMI 28.4 BP 138/90 H Blood Pressure Location Lt brachial Position Sitting Pulse 76 Pulse Source Pulse Oximeter Pulse Oximetry (%) 100 Oxygen Delivery Method Room Air Intake Visit Reasons: anemia, IBS, lumbar DDD Intake Note: Patient is here to follow up Allergies nut - unspecified [NUTS] Allergy (Severe, Verified 12/19/22 03:26) HIVES, ANAPHYLAXIS Medication List - Last Reconciled 12/19/22 by Bala Vasquez MD amlodipine 2.5 mg PO DAILY 30 days ascorbic acid (vitamin C) (Vitamin C) 500 mg PO BID ferrous sulfate 325 mg PO DAILY irbesartan 300 mg PO DAILY 90 days lorazepam 1 mg PO BID PRN 30 days omeprazole 20 mg PO DAILY 30 days ondansetron 4 mg PO Q6H PRN oxycodone-acetaminophen 5-325 mg 1 tab PO .1 to 2 times a day PRN 28 days phenazopyridine 100 mg PO TID 6 doses Tobacco use date assessed: 12/14/22 HPI anemia, IBS, lumbar DDD HPI Details Patient comes in today for her follow up visit States that she feels okay and that her chronic low back pain and joint pains remain adequately controlled on her current medications She denies any headaches or dizziness Denies any chest pains, no shortness of breath No nausea /vomiting, no abdominal pain No change in bowel habits noted PFSH Medical History Anemia Benign essential hypertension Fibromyalgia Hernia Hives HTN (hypertension) Irritable bowel syndrome (IBS) Low back pain Migraine Obesity (BMI 30-39.9) Scoliosis Umbilical hernia without obstruction and without gangrene Surgical History Hx of section Family History Maternal Aunt Cancer Social History Household Members: Children Housing: Apartment Are you a primary residential care officer to a significant other at home: No Do you presently have visiting nurse or other home services: No Alcohol intake: never Patient Tobacco Use Status: Never used Tobacco Second Hand Smoke Exposure: No service: No Current occupational status: disabled Cognitive needs: No Hearing needs: No Vision needs: No Questionnaire Thrive Questionnaire Date Thrive assessed: 08/30/22 I am a: Patient What is your living situation today?: I have a steady place to live Within the past 12 months, did the food you bought not last and you didn't have the money to get more?: Never true Within the past 12 months, did you worry whether your food would run out before you got money to buy more?: Never true Currently or been in a relationship where the following occur: no concerns reported AUDIT C Alcohol Use Questionnaire (AUDIT-C) 1. How often do you have a drink containing alcohol?: Never 2. How many drinks containing alcohol do you have on a typical day when you are drinking?: 1 or 2 3. How often do you have six or more drinks on one occasion?: Never Total Score: 0 Score Reviewed/Action Taken: Yes SNOW-7 AMB Questionnaire SNOW-7 Date SNOW - 7 assessed: 08/30/22 Source: Developed by Drs. Barrera Ruiz, Marlene Goldberg, Mesfin De Anda and colleagues, with an educational yuriy from [employer]. Review of Systems Const Denies chills, Reports fatigue, Denies fever(s) and Denies headache(s) ENT Denies dysphagia, Denies dizziness, Denies otalgia, Denies headache(s), Denies odynophagia and Denies sore throat Card Denies chest pain, Denies rapid heart rate, Denies irregular heart rhythm, Denies palpitations and Denies dyspnea Resp Denies chest congestion, Denies cough, Denies dyspnea and Denies wheezing GI Reports abdominal pain (recurrent, intermittent, especially over the lower abdomen), Reports constipation, Denies dysphagia, Denies heartburn, Reports loose stools (intermittent), Denies nausea, Denies odynophagia and Denies vomiting Denies hematuria, Denies dysuria and Denies urinary urgency Musc Reports back pain (over the lower back - chronic), Denies arthralgias, Denies joint swelling and Denies muscle weakness Neuro Denies dizziness, Denies headache(s) and Denies paresthesias Psych Reports anxiety and Reports depression Endo Reports fatigue and Denies palpitations Matteo/Lymph Denies easy bruising Aller/Immun Denies wheezing Physical exam (Primary Care) Vital Signs: Last Vital Signs Pulse 76 12/14/22 14:33 BP 138/90 H 12/14/22 14:33 Pulse Ox 100 12/14/22 14:33 Oxygen Delivery Method Room Air 12/14/22 14:33 BMI result Body Mass Index 28.4 Tobacco/Smoking Status: Tobacco use Status Tobacco use date assessed 12/14/22 12/14/22 14:38 Patient Tobacco Use Status Never used Tobacco 12/14/22 14:38 Thrive Assessment: Date of Thrive Assessment Date Thrive assessed 08/30/22 12/14/22 14:38 Currently or been in a relationship where the following occur: no concerns reported Const General: no acute distress and alert HENMT Ears: TM's normal bilaterally and EAC's normal Throat: Yes posterior oropharynx normal and Yes tonsils normal (no TP congestion) Neck Neck: Yes no lymphadenopathy and Yes supple Thyroid: Thyroid normal Resp Auscultation: clear to auscultation bilaterally, no rales and no wheezes Cardio Rate: regular rate Rhythm: regular rhythm Heart sounds: no murmurs GI Palpation (GI): Soft to palpation, nontender and Hernia present (large,non-reducible) umbilical Auscultation: normal bowel sounds Back/Spine/Pelvis Thoracic/Lumbar Spine: lumbar spinal tenderness Extrem General: Yes no clubbing, cyanosis or edema Assessment and Plan Assessment & Plan (1) Anemia: Code(s): D64.9 - Anemia, unspecified Qualifiers: Anemia type: iron deficiency Iron deficiency anemia type: unspecified iron deficiency Qualified Code(s): D50.9 - Iron deficiency anemia, unspecified Plan: Has not been taking her oral Ferrous Sulfate 325 mg QD regularly as it tends to irritate her stomach Her H/H done last month (October 2022) at the ER was normal/near normal at 12.0/36.7 Follow up with hematology as scheduled (2) Benign essential hypertension: Code(s): I10 - Essential (primary) hypertension Plan: Reinforced low sodium diet - goal is systolic BP of 120 mm or less Continue Irbesartan 300 mg QD (3) Migraine: Code(s): G43.909 - Migraine, unspecified, not intractable, without status migrainosus Qualifiers: Migraine type: unspecified Status migrainosus presence: without status migrainosus Intractability: not intractable Qualified Code(s): G43.909 - Migraine, unspecified, not intractable, without status migrainosus Plan: Stable lately Used to take Fioricet PRN in the past (4) Umbilical hernia without obstruction and without gangrene: Code(s): K42.9 - Umbilical hernia without obstruction or gangrene Plan: Will refer her to surgery for evaluation and hernia repair (5) Low back pain: Code(s): M54.50 - Low back pain, unspecified Qualifiers: Chronicity: chronic Back pain laterality: midline Sciatica presence: without sciatica Qualified Code(s): M54.50 - Low back pain, unspecified; G89.29 - Other chronic pain Plan: (+) Hx of scoliosis Reinforced activity and weight-lifting restrictions Continue Oxycodone-Acetaminophen 5-325 mg 1 to 2 times a day as needed (6) Irritable bowel syndrome (IBS): Code(s): K58.9 - Irritable bowel syndrome without diarrhea Qualifiers: Irritable bowel syndrome type: unspecified Qualified Code(s): K58.9 - Irritable bowel syndrome without diarrhea Plan: Continue Dicyclomine 20 mg TID PRN Advised that this is also most likely the main cause of her intermittent lower abdominal cramping pain and loose stools As she continues to experience recurrent abdominal pain and intermittent diarrhea, will refer her to GI for further evaluation and management (7) Hives: Code(s): L50.9 - Urticaria, unspecified Plan: Used to receive 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 States that this has been stable lately (8) Anxiety: Code(s): F41.9 - Anxiety disorder, unspecified Plan: Continue Lorazepam 1 mg BID PRN (9) Depression: Code(s): F32.A - Depression, unspecified Qualifiers: Depression Type: major depressive disorder Major depression recurrence: recurrent Active/Remission status: currently active Major depression episode severity: unspecified Qualified Code(s): F33.9 - Major depressive disorder, recurrent, unspecified Plan: Continue Escitalopram 10 mg QD Follow up with psychiatry as scheduled (10) Obesity (BMI 30-39.9): Code(s): E66.9 - Obesity, unspecified Plan: Reinforced diet/exercise as tolerated/lose weight Plan To return as scheduled in April 2023 for her annual physical examination Orders: Referrals Gastroenterology Referral R10.9 - Unspecified abdominal pain General Surgery Referral K42.9 - Umbilical hernia without obstruction or gangrene Medications: New omeprazole 20 mg PO DAILY 30 days 30 caps 3RF Coding Level of Care Code Est Pt Level 4 (19208) Diagnoses Anemia D50.9 Anemia type: iron deficiency Iron deficiency anemia type: unspecified iron deficiency Benign essential hypertension I10 Migraine G43.909 Migraine type: unspecified Status migrainosus presence: without status migrainosus Intractability: not intractable Umbilical hernia without obstruction and without gangrene K42.9 Low back pain M54.50; G89.29 Chronicity: chronic Back pain laterality: midline Sciatica presence: without sciatica Irritable bowel syndrome (IBS) K58.9 Irritable bowel syndrome type: unspecified Hives L50.9 Anxiety F41.9 Depression F33.9 Depression Type: major depressive disorder Major depression recurrence: recurrent Active/Remission status: currently active Major depression episode severity: unspecified Obesity (BMI 30-39.9) E66.9
== END 2022-12-14 15:29 | disposition home or self-care (01) ==
PROVIDERS: PCP Internal Medicine; Visit Provider Internal Medicine
DX: I10 Essential (primary) hypertension (principal); E66.9 Obesity, unspecified; G43.909 Migraine, unspecified, not intractable, without status migrainosus; Z68.28 Body mass index [BMI] 28.0-28.9, adult; F41.9 Anxiety disorder, unspecified; D50.9 Iron deficiency anemia, unspecified; K42.9 Umbilical hernia without obstruction or gangrene; G89.29 Other chronic pain; M54.50 Low back pain, unspecified; K58.9 Irritable bowel syndrome, unspecified; L50.9 Urticaria, unspecified; F33.9 Major depressive disorder, recurrent, unspecified
CPT/HCPCS: 99214

== ENCOUNTER 2022-12-28 09:39 | Outpatient (AMB) | payer OTHER, SELFPAY ==
--- NOTE | 2022-12-28 09:46 | MHC.OFFVIS ---
Intake Vital Signs 12/28/22 09:50 Height 5 ft 9 in Weight 190 lb BMI 28.1 BP 160/87 H Blood Pressure Location Rt brachial Position Sitting Pulse 103 H Intake Visit Reasons: Umbilical hernia Intake Note: Patient referred for umbilical hernia. Abd US 10-27-22. Patient feels like she is ready to have surgery. Denies pain. Patient feels like hernia bulges out. Has endoscopy scheduled for January. Table Worker Required: No Accompanied by: Self / Same As Patient Allergies nut - unspecified [NUTS] Allergy (Severe, Verified 12/28/22 09:53) HIVES, ANAPHYLAXIS HPI HPI Comments History of Present Illness Details Patient presents for evaluation of a symptomatic umbilical hernia. She has had this at least 10 years time. His increasing size, becoming more symptomatic. She otherwise is tolerating a diet. Having normal bowel habits. No other GI issues or complaints although she is going to screening endoscopy in January. Chart was reviewed patient evaluated [facility] Medical History Anemia Benign essential hypertension Fibromyalgia Hernia Hives HTN (hypertension) Irritable bowel syndrome (IBS) Low back pain Migraine Obesity (BMI 30-39.9) Scoliosis Umbilical hernia without obstruction and without gangrene Surgical History Hx of section Family History Maternal Aunt Cancer Social History Household Members: Children Housing: Apartment Are you a primary childcare center director to a significant other at home: No Do you presently have visiting nurse or other home services: No Alcohol intake: never Patient Tobacco Use Status: Never used Tobacco Second Hand Smoke Exposure: No service: No Current occupational status: disabled Cognitive needs: No Hearing needs: No Vision needs: No Physical Exam Vital Signs: Last Vital Signs Pulse 103 H 12/28/22 09:50 BP 160/87 H 12/28/22 09:50 BMI result Body Mass Index 28.1 Chest Other: Chest breath sounds bilaterally, HS 1 in 2 GI Other: Patient was examined both supine and standing with Valsalva. Very large protruding umbilical hernia reducible defect approximately 3 cm. Abdomen otherwise soft and benign. Groin exam negative bilaterally. Assessment & Plan Assessment & Plan (1) Umbilical hernia without obstruction and without gangrene: Code(s): K42.9 - Umbilical hernia without obstruction or gangrene Plan Risks, benefits, alternatives of open umbilical hernia repair with mesh were reviewed with the patient included but not limited to bleeding, infection, recurrence, numbness, pain, scarring, bowel injury and the patient wishes to proceed. All questions were answered. Arrangements will be made for day which is convenient for the patient. Coding Level of Care Code New Pt Level 5 (52056) Diagnoses Umbilical hernia without obstruction and without gangrene K42.9
[2022-12-28 09:50] VITALS: BP 160/87; PULSE 103; BMI 28.1
== END 2022-12-28 10:09 | disposition home or self-care (01) ==
PROVIDERS: PCP Internal Medicine; Referring Provider Internal Medicine; Visit Provider Surgery
DX: K42.9 Umbilical hernia without obstruction or gangrene (principal)
CPT/HCPCS: 99205

== ENCOUNTER → 2022-12-28 09:39 | Outpatient (BNVA) | payer OTHER, SELFPAY | PROVIDERS: PCP Internal Medicine; Referring Provider Internal Medicine; Visit Provider Surgery | DX: K42.9 Umbilical hernia without obstruction or gangrene (principal) | CPT/HCPCS: 99202 ==

== ENCOUNTER 2023-02-13 09:49 | Outpatient (REF) | payer OTHER, SELFPAY ==
[2023-02-13 12:19] LABS: Estimated Average Glucose 103 mg/dL; Hemoglobin A1c % 5.2 % (<6.0)
[2023-02-16 22:22] LABS: Transglutaminase Ab IgG <1.0 U/mL; Transglutaminase IgA <1.0 U/mL
[2023-02-17 16:32] LABS: Vitamin D 25-OH, D2 <4 ng/mL; Vitamin D 25-OH, D3 17 ng/mL; Vitamin D 25-OH, Total 17 ng/mL (30-100)
== END 2023-02-13 09:50 | disposition home or self-care (01) ==
LOC: HO.LAB 09:49
PROVIDERS: PCP Internal Medicine; Visit Provider Nurse Practitioner Family
DX: E55.9 Vitamin D deficiency, unspecified (principal); R10.9 Unspecified abdominal pain; I10 Essential (primary) hypertension; K58.9 Irritable bowel syndrome, unspecified; K21.9 Gastro-esophageal reflux disease without esophagitis; E11.9 Type 2 diabetes mellitus without complications
CPT/HCPCS: 36415; 82306; 83036; 86364

== ENCOUNTER 2023-02-13 09:49 | Outpatient (AMB) | payer OTHER, SELFPAY ==
--- NOTE | 2023-02-13 10:01 | A.OFFVIS_ITS ---
Intake Vital Signs 02/13/23 10:05 Height 5 ft 9 in Weight 185 lb 3.013 oz BMI 27.3 BP 165/74 H Blood Pressure Location Lt brachial Position Sitting Pulse 85 Intake Visit Reasons: Unspecified abdominal pain Intake Note: Patient presents to in office visit today as a new patient for epigastric abdominal pain. CC: Patient c/o epigastric discomfort depending on what meals she eats. She reports getting anxious when she gets this. Her PCP placed her on Omeprazole and she states this has been helping her. Patient states a little bit ago she felt some food would get stuck in her esophagus and she had to provoke her vomit to get food out. She reports onset of symptoms about a year ago but symptoms has been intermittent. She was advised by her doctor to request EGD and colonoscopy. Patient reports she has an umbilical hernia and will have it repair next month with Dr. Daniel. Allergies nut - unspecified [NUTS] Allergy (Severe, Verified 02/13/23 10:14) HIVES, ANAPHYLAXIS HPI Unspecified abdominal pain HPI Details 47 years old female with past medical hi story of migraine headaches, umbilical hernia, hypertension, anemia, depression, anxiety is here today for initial consultation. Patient was sent to us by her PCP for evaluation of have epigastric symptoms. Patient reports that few months ago she started having epigastric discomfort postprandially and occasional a feeling like food gets stuck in her throat. Recently patient states that the symptoms are better. Patient start eating better and she no longer feels like that, however she continues to have occasional dyspepsia and acid reflux. Patient started omeprazole, stating that she is feeling better, however her symptoms continue occasionally. Patient reports that she will have umbilical hernia repair on the 12th of next month. Patient is little nervous about that. Patient denies any melena, hematochezia, unintentional weight loss or ribbon like stools. [facility] Medical History Irritable bowel syndrome (IBS) Obesity (BMI 30-39.9) Low back pain Migraine Hives Benign essential hypertension Hernia Scoliosis HTN (hypertension) Fibromyalgia Anemia Surgical History Umbilical hernia without obstruction and without gangrene Hx of section Family History Maternal Aunt Cancer Social History Household Members: Children Housing: Apartment Are you a primary career consultant to a significant other at home: No Do you presently have visiting nurse or other home services: No Alcohol intake: never Patient Tobacco Use Status: Never used Tobacco Second Hand Smoke Exposure: No service: No Current occupational status: disabled Cognitive needs: No Hearing needs: No Vision needs: No Review of Systems Const Denies weight gain and Denies weight loss ENT Reports no additional complaints, Denies dysphagia and Denies odynophagia Card Reports no additional complaints Resp Reports no additional complaints GI Reports abdominal pain (epigastric), Denies belching, Denies melena, Reports bloating, Denies change in bowel habits, Denies dysphagia, Denies excessive flatus, Reports dyspepsia, Reports heartburn, Denies diarrhea, Denies loose stools, Denies nausea, Denies odynophagia and Denies vomiting Reports no additional complaints Musc Reports no additional complaints Neuro Reports no additional complaints Psych Reports no additional complaints Endo Reports no additional complaints Physical Exam Vital Signs: Last Vital Signs Pulse 85 02/13/23 10:05 BP 165/74 H 02/13/23 10:05 BMI result Body Mass Index 27.3 Const General: healthy appearing, no acute distress and well developed Nutritional Appearance: well nourished Orientation/consciousness: patient oriented x3 HEENT Head: Yes normal to inspection, Yes normocephalic and Yes atraumatic Face and sinus: Yes normal facial exam Mouth: Normal oral and palatal mucosa present Throat: Yes posterior oropharynx normal, Yes tonsils normal and Yes uvula midline Eyes General: appearance normal, both eyes and all related structures Neck Neck: Yes normal visual inspection, Yes full ROM and Yes trachea midline Thyroid: Thyroid normal Resp Effort & Inspection: normal respiratory effort, able to speak in complete sentences, no tracheal deviation and symmetric chest movement Auscultation: clear to auscultation bilaterally Cardio Rate: regular rate Heart sounds: S1 normal heart sound present and S2 normal heart sound present GI Inspection: Yes normal to inspection and No distended Palpation (GI): Soft to palpation, not firm, nontender and No hepatosplenomegaly present Auscultation: normal bowel sounds General: Yes no CVA tenderness Back/Spine/Pelvis Back: no CVA tenderness Skin General skin exam: elasticity normal, turgor normal and dry skin Neuro General: patient oriented x3 Psych Appearance: grossly normal Mental Status: mental status grossly normal Speech and movement: Normal speech and movement present Assessment & Plan Assessment & Plan (1) Colon cancer screening: Code(s): Z12.11 - Encounter for screening for malignant neoplasm of colon Plan: We will deferred sending patient for colonoscopy until patient has her surgery. Patient denies melena, hematochezia, unintentional weight loss or ribbon like stools. Patient has a history of anemia, however her H&H was normal in October of this year. (2) Irritable bowel syndrome (IBS): Code(s): K58.9 - Irritable bowel syndrome without diarrhea Qualifiers: Irritable bowel syndrome type: unspecified Qualified Code(s): K58.9 - Irritable bowel syndrome without diarrhea Plan: Occasional postprandial abdominal bloating that currently has been under better control. Patient reports that she has been trying to eat better. Low FODMAP diet discussed with patient. List of food recommended as were her food to avoid given to patient. Will check transglutaminase, vitamin-D level,, A1c level (3) GERD (gastroesophageal reflux disease): Code(s): K21.9 - Gastro-esophageal reflux disease without esophagitis Qualifiers: Esophagitis presence: esophagitis presence not specified Qualified Code(s): K21.9 - Gastro-esophageal reflux disease without esophagitis Plan: Patient can continue taking omeprazole. Will test for H pylori and treat empirically positive. Patient will be sent for upper endoscopy. Patient can also take famotidine at bedtime on a as needed basis. Discussed with patient avoiding dietary triggers in late night snacking. Staying upright for minimum 3 hours after meals discussed with patient. I will see her in 2 months, sooner on as needed basis. Patient is agreeable to this plan and verbalizes understanding of instructions. She was given the opportunity to ask questions and all questions answered. Thank you for allowing me to participate in her care Orders: Orders H pylori Ag Stool Today K21.9 - Gastro-esophageal reflux disease without esophagitis Vitamin D 25-OH (D2 and D3) Today E55.9 - Vitamin D deficiency, unspecified Transglutaminase Ab IgG Today R10.9 - Unspecified abdominal pain Transglutaminase IgA Today R10.9 - Unspecified abdominal pain Hemoglobin A1c Today E11.9 - Type 2 diabetes mellitus without complications Medications: New famotidine (Pepcid) 20 mg PO BEDTIME 30 tabs 3RF K21.9 - Gastro-esophageal reflux disease without esophagitis Coding Level of Care Code New Pt Level 4 (19195) Diagnoses Colon cancer screening Z12.11 Irritable bowel syndrome, unspecified type K58.9 Irritable bowel syndrome type: unspecified Gastroesophageal reflux disease, unspecified whether esophagitis present K21.9 Esophagitis presence: esophagitis presence not specified Time Spent (min) 45 Comment 30 minutes spent with patient and additional 15 minutes spent reviewing her records
[2023-02-13 10:05] VITALS: BP 165/74; PULSE 85; BMI 27.3
== END 2023-02-13 11:32 | disposition home or self-care (01) ==
PROVIDERS: PCP Internal Medicine; Visit Provider Nurse Practitioner Family
DX: Z12.11 Encounter for screening for malignant neoplasm of colon (principal); K58.9 Irritable bowel syndrome, unspecified; K21.9 Gastro-esophageal reflux disease without esophagitis; Z01.818 Encounter for other preprocedural examination
CPT/HCPCS: 99204

== ENCOUNTER 2023-02-21 10:26 | Outpatient (REF) | payer OTHER, SELFPAY ==
--- NOTE | ~2023-02-21 | MM_ITS ---
EXAMINATION: MM SCREENING DIGITAL BREAST TOMOSYNTHESIS, BILATERAL CLINICAL INFORMATION: Screening. Asymptomatic. COMPARISON: Mammography: This study is compared with prior exams dating back to 2019. TECHNIQUE: Digital breast tomosynthesis is performed in both the craniocaudal and mediolateral oblique views along with computer-aided detection (CAD). Synthesized 2D images are generated from the tomosynthesis. FINDINGS: The breasts are heterogeneously dense, which may obscure small masses (ACR BI-RADS breast composition Category c). There are no significant masses, abnormal calcifications, or other abnormalities. There is a tissue marker in the upper inner quadrant of the right breast from prior benign percutaneous biopsy. Few, benign calcifications are in association with the tissue marker. MM/MM tomosynthesis screening BI IMPRESSION: No mammographic evidence of malignancy. ASSESSMENT: BI-RADS BI-RADS 2 - Benign Findings RECOMMENDATION: Routine annual mammography screening. 1 year F/U This examination should not preclude the clinical evaluation of a suspicious palpable abnormality. This patient's information was entered into a reminder system with a target due date for their next mammogram.
== END 2023-02-21 10:27 | disposition home or self-care (01) ==
LOC: HO.MAMMO 10:26
PROVIDERS: PCP Internal Medicine; Visit Provider Hospitalist
DX: Z12.31 Encounter for screening mammogram for malignant neoplasm of breast (principal)
CPT/HCPCS: 77063; 77067

== ENCOUNTER → 2023-02-21 10:30 | Outpatient (BNV) | payer OTHER, SELFPAY | PROVIDERS: PCP Internal Medicine; Visit Provider Radiology Diagnostic Radiology | DX: Z12.31 Encounter for screening mammogram for malignant neoplasm of breast (principal) | CPT/HCPCS: 77063; 77067 ==

== ENCOUNTER 2023-03-01 12:26 | Outpatient (REF) | payer OTHER, SELFPAY | END 2023-03-01 12:27 | disposition home or self-care (01) | LOC: HO.LNP 12:26 | PROVIDERS: Visit Provider Nurse Practitioner Family | DX: K21.9 Gastro-esophageal reflux disease without esophagitis (principal) | CPT/HCPCS: 87338 ==

== ENCOUNTER 2023-03-02 06:04 | Day surgery (SDC) | payer OTHER, SELFPAY ==
[2023-02-24 11:11] VITALS: BMI 28.1
--- NOTE | 2023-03-01 09:21 | MHC.SHP ---
Pre-Procedural Eval Section A Date of Service: 03/01/23 The patient is an INPATIENT: No Changes since office visit: No Cold of Flu in the past 2 weeks, No New Medical Problems, No Changes in Medication and No Patient answered all questions The History & Physical has been completed within 30 days and I have reviewed it.: Yes Section B Chief Complaint: Umbilical hernia without obstruction or gangrene Allergies: Allergies Allergy/AdvReac Type Severity Reaction Status Date / Time nut - unspecified [NUTS] Allergy Severe HIVES, Verified 02/28/23 09:24 ANAPHYLAXIS Plan I have reviewed the history and physical and performed a pertinent physical examination on my patient. No changes have occurred unless specified. Time Spent With Patient Time: Total time managing care of this patient today ____ minutes.
--- NOTE | 2023-03-01 10:04 | HO.ANESPROP2 ---
Documented by User: Monika Oviedo NP 03/01/23 10:04 HPI - Anesthesia Eval Consult details Narrative: 48yo F for Open Hernia Repair Umbilical w/mesh PMFSH Active Problems Active Problems: All Active Problems (Updated 10/28/22 @ 00:01 by Romain Rose) Fatigue (Acute) Colon cancer screening (Acute) Annual physical exam (Acute) Depression (Acute) Anxiety (Acute) Irritable bowel syndrome (IBS) (Acute) Obesity (BMI 30-39.9) (Acute) Low back pain (Acute) Migraine (Acute) Hives (Acute) Benign essential hypertension (Acute) Umbilical hernia without obstruction and without gangrene (Acute) Anemia (Acute) Past Medical History Medical History Irritable bowel syndrome (IBS) Obesity (BMI 30-39.9) Low back pain Migraine Hives Benign essential hypertension Hernia Scoliosis HTN (hypertension) Fibromyalgia Anemia Family History Family History Maternal Aunt Cancer Surgical History Surgical History Umbilical hernia without obstruction and without gangrene Hx of section Social History Social History Household Members: Children Housing: Apartment Are you a primary critical care educator to a significant other at home: No Do you presently have visiting nurse or other home services: No Alcohol intake: never Patient Tobacco Use Status: Never used Tobacco Second Hand Smoke Exposure: No service: No Current occupational status: disabled Cognitive needs: No Hearing needs: No Vision needs: No Meds Allergies Allergy/AdvReac Type Severity Reaction Status Date / Time nut - unspecified [NUTS] Allergy Severe HIVES, Verified 02/28/23 09:24 ANAPHYLAXIS Exam Exam Date and Time: March 01, 2023 1004 Height,Weight and Vital Signs: Height 5 ft 9 in Weight 86.183 kg Pertinent Lab Results Pertinent Lab Results: Laboratory Tests 02/28/23 09:10 WBC 6.6 Hgb 11.7 L Hct 36.0 L Plt Count 214 Sodium 140 Potassium 4.6 D Chloride 106 Carbon Dioxide 24 BUN 14 Creatinine 0.66 Assessment and Plan Assessment Anesthesia Assessment: Chart Reviewed Documented by User: Jean-Paul Torre MD 03/02/23 10:58 PMFSH Past Medical History Medical History Irritable bowel syndrome (IBS) Obesity (BMI 30-39.9) Low back pain Migraine Hives Benign essential hypertension Hernia Scoliosis HTN (hypertension) Fibromyalgia Anemia Family History Family History Maternal Aunt Cancer Family history of problems with anesthesia: No Surgical History Surgical History Umbilical hernia without obstruction and without gangrene Hx of section History of Problems with Anesthesia: No Social History Social History Household Members: Children Housing: Apartment Are you a primary critical care educator to a significant other at home: No Do you presently have visiting nurse or other home services: No Alcohol intake: never Patient Tobacco Use Status: Never used Tobacco Second Hand Smoke Exposure: No service: No Current occupational status: disabled Cognitive needs: No Hearing needs: No Vision needs: No Meds Allergies Allergy/AdvReac Type Severity Reaction Status Date / Time nut - unspecified [NUTS] Allergy Severe HIVES, Verified 02/28/23 09:24 ANAPHYLAXIS Exam Airway Mallampati Class: III TM Dist: >3cm Neck ROM: Full Loose/Missing/Broken Teeth: Yes Assessment and Plan Assessment Anesthesia Assessment: Anesthesia Plan Discussed Final Anesthetic Review Family History of Problems with Anesthesia: No History of Problems with Anesthesia: No NPO: Yes ASA Class: II Final Preanesthetic Review: No Changes in Pt Med Stat, Meds/Allgs Chart Reviewed, Consent Obtained/Reviewed and Anes Risks/Benef Reviewed Patient Risk: Low Procedure Risk: Low Anesthetic Plan Anesthetic Plan: MAC: Disposition: Standard PACU
[2023-03-02] VITALS (11 sets, daily range): BP systolic 129–163; BP diastolic 72–108; PULSE 78–106; RESP 9–20; TEMP 36.6; O2SAT 98–100
[2023-03-02 06:23] LABS: UPreg QC Valid YES
[2023-03-02 06:24] LABS: Urine Pregnancy NEGATIVE (NEGATIVE)
[2023-03-02] MEDS: Lactated Ringers 1,000 ML 100 ML IVCONT (06:42)
--- NOTE | 2023-03-02 08:28 | P.OP_ITS ---
Operative Note Operative Note Date of Service: 03/02/23 Narrative: Preoperative diagnosis: [] incarcerated umbilical hernia Postop diagnosis: [] same Procedure [] open repair incarcerated umbilical hernia with Bard mesh Surgeon: [] Fredy Show Host/Hostess: [] Mervin Type of Anesthesia: [] MACt Findings: [] approximately 4 cm incarcerated umbilical hernia with omental contents. Please refer anesthesia. Patient was at times very combative / flailing about. Procedure: Patient brought to the operating room, placed on operative table supine position, and after adequate level of MAC anesthesia was induced, the patient's abdomen was prepped and draped in usual sterile fashion. Proposed incision site and wound were very generously infiltrated with 0.5% Marcaine/ 1% lidocaine. A supraumbilical curvilinear incision was made and carried down through skin skin, subcutaneous tissue, hernias was identified and dissected off the posterior aspect of the umbilicus and dissected down to the fascia. Sac was old opened where a very large incarcerated omental contents hernia was id entified. Sac was from the omentum. Omental adhesions to the sac and fascia were taken down and the incarcerated omentum reduced. The hernia sac was amputated using Bovie. The fascial margins were circumferentially cleared and a Bard mesh was placed in the defect, and the superficial layer of the mesh was circumferentially sutured to the surrounding fascia using interrupted 0 Ethibond suture. A completion the procedure, mesh was in good position with no tension or gaps. Wound was irrigated, secured hemostasis. Wound was closed in the following manner; posterior aspect of the umbilicus was tacked to the wound floor using up to 3-0 Vicryl sutures. Skin was closed using interrupted inverted dermal 3-0 Vicryl sutures followed by Steri-Strips and sterile dressings. Sponge, needle, and instrument counts reported correct. Patient tolerated the procedure well and emerged anesthesia stable condition. EBL minimal
[2023-03-02] MEDS: Acetaminophen 325 MG TABLET 975 MG PO (08:40)
[2023-03-02] MEDS: oxyCODONE HCl Immed Release 5 MG TABLET PO (08:40)
[2023-03-02] MEDS: HYDROmorphone HCl 0.5 MG/0.5 ML SYRINGE 0.25 MG IVPUSH ×3 (08:40→09:07)
== END 2023-03-02 10:42 | disposition home or self-care (01) ==
PROVIDERS: Nurse Practitioner; PCP Internal Medicine; Visit Provider Surgery
PROC: (CPT 49594; principal; 2023-03-02 07:30)
DX: K42.0 Umbilical hernia with obstruction, without gangrene (principal); K66.0 Peritoneal adhesions (postprocedural) (postinfection); I10 Essential (primary) hypertension; D64.9 Anemia, unspecified; F41.1 Generalized anxiety disorder; M79.7 Fibromyalgia; Z79.899 Other long term (current) drug therapy
CPT/HCPCS: 49594; 81025; 88302; C1781; J0690; J1170; J2795; J3010

== ENCOUNTER → 2023-03-02 06:04 | Outpatient (BNV) | payer OTHER, SELFPAY | PROVIDERS: PCP Internal Medicine; Visit Provider Surgery | DX: K42.0 Umbilical hernia with obstruction, without gangrene (principal) | CPT/HCPCS: 49594 ==

== ENCOUNTER 2023-03-13 10:31 | Outpatient (AMB) | payer OTHER, SELFPAY ==
--- NOTE | 2023-03-13 10:33 | A.OFFVIS_ITS ---
Intake Vital Signs 03/13/23 10:37 Weight 182 lb BP 164/84 H Blood Pressure Location Rt brachial Position Sitting Pulse 94 Intake Visit Reasons: S/P umbilical hernia w/mesh Intake Note: Patient here s/p umbilical hernia w/mesh. Patient reports incisions healing well. C/o back back for the past 3 days. Patient with hx of scoliosis and not sure if back pain is related to that or surgery. 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 Minimal incisional discomfort. Tolerating a diet. Having normal bowel habits. Increasing her activity level. [facility] Medical History Irritable bowel syndrome (IBS) Obesity (BMI 30-39.9) Low back pain Migraine Hives Benign essential hypertension Hernia Scoliosis HTN (hypertension) Fibromyalgia Anemia Surgical History Hx of section Family History Maternal Aunt Cancer Social History Household Members: Children Housing: Apartment Are you a primary aged or disabled care worker to a significant other at home: No Do you presently have visiting nurse or other home services: No Alcohol intake: never Patient Tobacco Use Status: Never used Tobacco Second Hand Smoke Exposure: No service: No Current occupational status: disabled Cognitive needs: No Hearing needs: No Vision needs: No Physical Exam Vital Signs: Last Vital Signs Pulse 94 03/13/23 10:37 BP 164/84 H 03/13/23 10:37 GI Other: Abdomen soft. Wound clean dry and intact. Assessment & Plan Assessment & Plan (1) Umbilical hernia without obstruction and without gangrene: Code(s): K42.9 - Umbilical hernia without obstruction or gangrene Plan Patient has been given local instructions, and will follow-up p.r.n.. Coding Level of Care Code Global (06385) Diagnoses Umbilical hernia without obstruction and without gangrene K42.9
[2023-03-13 10:37] VITALS: BP 164/84; PULSE 94
== END 2023-03-13 10:45 | disposition home or self-care (01) ==
PROVIDERS: PCP Internal Medicine; Visit Provider Surgery
DX: K42.9 Umbilical hernia without obstruction or gangrene (principal)
CPT/HCPCS: 99212

== ENCOUNTER → 2023-03-13 10:31 | Outpatient (BNVA) | payer OTHER, SELFPAY | PROVIDERS: PCP Internal Medicine; Visit Provider Surgery | DX: K42.9 Umbilical hernia without obstruction or gangrene (principal) | CPT/HCPCS: 99212 ==

== ENCOUNTER 2023-05-02 12:57 | Outpatient (AMB) | payer OTHER, SELFPAY ==
[2023-05-02 12:59] VITALS: BP 170/110; PULSE 102; O2SAT 99; BMI 26.9
--- NOTE | 2023-05-02 12:59 | A.OFFPC_ITS ---
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 Accompanied by: Self / Same As Patient Allergies nut - unspecified [NUTS] Allergy (Severe, Verified 09/25/23 11:49) HIVES, ANAPHYLAXIS Medication List - Last Reconciled 05/02/23 by Bala Vasquez MD amlodipine 2.5 mg PO DAILY 30 days ascorbic acid (vitamin C) (Vitamin C) 500 mg PO BID ascorbic acid (vitamin C) 500 mg PO BID bismuth subsalicylate 2 tabs PO QID 14 days cholecalciferol (vitamin D3) 50 mcg PO DAILY doxycycline hyclate 100 mg PO BID 14 days famotidine (Pepcid) 20 mg PO BEDTIME ferrous sulfate 325 mg PO DAILY irbesartan 300 mg PO DAILY 90 days lorazepam 1 mg PO BID PRN 30 days metronidazole 1,000 mg (2 x 500 mg) PO BID 14 days omeprazole 20 mg PO BID 30 days ondansetron 4 mg PO Q6H PRN oxycodone-acetaminophen 5-325 mg 1 tab PO .1 to 2 times a day PRN 28 days Tobacco use date assessed: 05/02/23 Dental Screening Dental Screen Date: 05/02/23 Did you have a dental visit in the last 12 months?: Yes Did you have a dental problem in the last 6 months where you did not have access to dental care?: No Was dental information given to patient?: Patient has dentist HPI Annual exam HPI Details Patient comes in today for her annual physical examination States that she has been experiencing recurrent headaches and feeling fatigued often lately States that she just now realizes that she should also be taking Amlodipine along with her Irbesartan for her blood pressure Now recalls that she somehow forgot to request for a refill of her Amlodipine when her Rx ran out a couple of months ago so she has not been taking her Amlodipine for the past couple of months now She denies any chest pains, no SOB No nausea/vomiting, no abdominal pain lately No change in bowel habits noted - still has on and off loose stools when her IBS flares up She denies any acute urinary symptoms Still has recurrent back pains and feels that her back pain has been getting worse lately States that her colonoscopy was recently cancelled and advised that she will be rescheduled - is still awaiting appointment for this Has had no recent labs done Had her mammogram last done a couple of months ago in February 2023 States that she goes to [facility] [place]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 but has not been seen in a while and [facility] Medical History (Updated 09/25/23 @ 12:29 by Blaa Vasquez MD) Vitamin D deficiency Overweight (BMI 25.0-29.9) Irritable bowel syndrome (IBS) Obesity (BMI 30-39.9) Low back pain Migraine Hives Benign essential hypertension Hernia Scoliosis HTN (hypertension) Fibromyalgia Anemia Surgical History History of hernia surgery Hx of section Family History Maternal Aunt Cancer Social History Household Members: Children Housing: Apartment Are you a primary home care scheduler to a significant other at home: No Do you presently have visiting nurse or other home services: No Alcohol intake: never Patient Tobacco Use Status: Never used Tobacco e-Cigarette/Vaping Use: Never Used Second Hand Smoke Exposure: No service: No Current occupational status: disabled Cognitive needs: No Hearing needs: No Vision needs: No Questionnaire PHQ-9 Over the last 2 weeks, how often have you been bothered by any of the following problems? 1. Little interest or pleasure in doing things: several days 2. Feeling down, depressed, or hopeless: several days 3. Trouble falling or staying asleep, or sleeping too much: several days 4. Feeling tired or having little energy: several days 5. Poor appetite or overeating: several days 6. Feeling bad about yourself - or that you are a failure or have let yourself or your family down: not at all 7. Trouble concentrating on things, such as reading the newspaper or watching television: not at all 8. Moving or speaking so slowly that other people could have noticed. Or the opposite - being so fidgety or restless that you have been moving around a lot more than usual: not at all 9. Thoughts that you would be better off or of hurting yourself in some way: not at all Total score: 5 Depression Screening Interpretation: Positive Depression Screening Follow-up: Existing condition and In treatment Depression Screening Done: Yes 29467 - PHQ-9 Billing: Yes Source: Developed by Drs. Barrera Ruiz, Marlene Goldberg, Mesfin De Anda and colleagues, with an educational yuriy from [employer]. Thrive Questionnaire Date Thrive assessed: 05/02/23 I am a: Patient What is your living situation today?: I have a steady place to live Within the past 12 months, did the food you bought not last and you didn't have the money to get more?: Never true Within the past 12 months, did you worry whether your food would run out before you got money to buy more?: Never true Do you have trouble paying for medicines?: No Do you have trouble getting transportation to medical appointments?: No Do you have trouble paying your heating and electricity bill?: No Do you have trouble taking care of your child, family member or friend?: No Do you have trouble with day-to-day activities such as bathing, preparing meals, shopping, managing finances, etc.?: No Are you currently unemployed and looking for a job?: No Are you interested in more education?: No Please select the resources that you would like help with: None Currently or been in a relationship where the following occur: no concerns reported AUDIT C Alcohol Use Questionnaire (AUDIT-C) 1. How often do you have a drink containing alcohol?: Never 2. How many drinks containing alcohol do you have on a typical day when you are drinking?: 1 or 2 3. How often do you have six or more drinks on one occasion?: Never Total Score: 0 Score Reviewed/Action Taken: Yes SNOW-7 AMB Questionnaire SNOW-7 Date SNOW - 7 assessed: 05/02/23 Feeling nervous, anxious, or on edge: 0 = Not at all Not being able to stop or control worryin = Not at all Worrying too much about different things: 0 = Not at all Trouble relaxin = Not at all Being so restless that it is hard to sit still: 0 = Not at all Becoming easily annoyed or irritable: 0 = Not at all Feeling afraid as if something awful might happen: 0 = Not at all Total SNOW-7 score (0-4 normal; 5-9 mild; 10-14 moderate; 15-21 severe): 0 Source: Developed by Drs. Barrera Ruiz, Marlene Goldberg, Mesfin De Anda and colleagues, with an educational yuriy from [employer]. Review of Systems Const Reports body aches, Denies chills, Reports fatigue, Denies fever(s), Denies headache(s) and Denies malaise Eyes Denies blurry vision, Denies change in vision, Denies irritation and Denies itchy eyes ENT Denies dysphagia, Denies dizziness, Denies otalgia, Denies headache(s), Denies nasal congestion, Denies neck pain, Denies odynophagia, Denies sinus pain and Denies sore throat Card Denies chest pain, Denies rapid heart rate, Denies irregular heart rhythm, Edi es palpitations and Denies dyspnea Resp Denies chest congestion, Denies cough, Denies dyspnea and Denies wheezing GI Reports abdominal pain (occasional cramping pain when IBS flares up), Denies bloating, Denies hematochezia, Denies constipation, Denies dysphagia, Denies heartburn, Denies diarrhea, Reports loose stools (at times), Denies nausea, Den ies odynophagia and Denies vomiting Denies hematuria, Denies urinary frequency, Denies dysuria, Denies urinary incontinence and Denies urinary urgency Musc Reports back pain (increased), Denies arthralgias ((+) left foot pain lately), Denies joint swelling, Denies muscle weakness and Denies neck pain Skin/Breast Denies breast pain, Denies breast mass, Denies change in pigmentation, Denies lesions, Denies rash and Denies unusual bruising Neuro Denies dizziness, Denies headache(s) and Denies paresthesias Psych Denies anxiety and Denies depression Endo Reports fatigue and Denies palpitations Matteo/Lymph Denies easy bruising Aller/Immun Denies itchy eyes and Denies wheezing Physical exam (Primary Care) Vital Signs: Last Vital Signs Pulse 102 H 05/02/23 12:59 BP 170/110 H 05/02/23 12:59 Pulse Ox 99 05/02/23 12:59 Oxygen Delivery Method Room Air 05/02/23 12:59 BMI result Body Mass Index 26.9 Tobacco/Smoking Status: Tobacco use Status Tobacco use date assessed 05/02/23 05/02/23 13:07 Patient Tobacco Use Status Never used Tobacco 05/02/23 13:07 e-Cigarette/Vaping Use Never Used 05/02/23 13:07 PHQ-9: PHQ-9 Score PHQ-9: Total score 5 05/02/23 13:42 Depression Screening Interpretation: Positive Depression Screening Follow-up: Existing condition and In treatment Thrive Assessment: Date of Thrive Assessment Date Thrive assessed 05/02/23 05/02/23 13:07 Currently or been in a relationship where the following occur: no concerns reported Const General: no acute distress, alert and awake Orientation/consciousness: patient oriented x3 HENMT Head: Yes normocephalic and Yes atraumatic Ears: external ears normal, TM's normal bilaterally and EAC's normal General nose exam: No nasal discharge present Face and sinus: Yes normal facial exam and Yes sinuses nontender Teeth and gingiva: dentition normal Throat: Yes posterior oropharynx normal and Yes tonsils normal (no TP congestion) Eyes Eyelids: Yes eyelids normal Conjunctivae: conjunctivae normal Pupils: Equal, round and reactive pupils present EOM: EOMs intact bilaterally Neck Neck: Yes no lymphadenopathy and Yes supple Thyroid: Thyroid normal Resp Auscultation: clear to auscultation bilaterally, no rales and no wheezes Cardio Rate: regular rate Rhythm: regular rhythm Heart sounds: no murmurs GI Palpation (GI): Soft to palpation, nontender and No hepatosplenomegaly present Auscultation: normal bowel sounds General: Yes no CVA tenderness Back/Spine/Pelvis Back: no CVA tenderness Cervical Spine: cervical muscular tenderness Thoracic/Lumbar Spine: thoracic spinal tenderness and lumbar spinal tenderness Skin Lesions: no lesions Rashes: no rashes Neuro General: patient oriented x3, moves all extremities, no focal motor deficits and CN's II-XI intact bilaterally Cranial nerves: Yes Equal, round and reactive pupils present Cognition (Neuro): normal cognition Gait exam (Neuro): Normal gait present Extrem General: Yes no clubbing, cyanosis or edema Left lower extremity: foot Details: tenderness and no edema Assessment and Plan Assessment & Plan (1) Annual physical exam: Code(s): Z00.00 - Encounter for general adult medical examination without abnormal findings Plan: Check labs She is up-to-date with her annual mammogram Was seen by GI a few months ago and has been advised to hold off on scheduling her colonoscopy until her hernia surgery is done As she already had her hernia repair done a couple of months ago, is now advised to reach out again to GI so they can get her screening colonoscopy scheduled She has also not seen her supply requirements officer (at [facility]) in a while now and is encouraged to reach out to them to schedule her yearly exam KOBI (2) Anemia: Code(s): D64.9 - Anemia, unspecified Qualifiers: Anemia type: iron deficiency Iron deficiency anemia type: unspecified iron deficiency Qualified Code(s): D50.9 - Iron deficiency anemia, unspecified Plan: She has not been taking her oral Ferrous Sulfate 325 mg QD regularly as it tends to irritate her stomach Her H/H done back in October 2022 (at the ER) was normal/near normal at 12.0/36.7 but her more recent H/H in February 2023 are again slightly lower at 11.7/36.0 Follow up with hematology as scheduled (3) Benign essential hypertension: Code(s): I10 - Essential (primary) hypertension Plan: Reinforced low sodium diet - goal is systolic BP of 120 mm or less Continue Irbesartan 300 mg QD; will start her back on Amlodipine 2.5 mg QD as well (4) Migraine: Code(s): G43.909 - Migraine, unspecified, not intractable, without status migrainosus Qualifiers: Intractability: not intractable Migraine type: unspecified Status migrainosus presence: without status migrainosus Qualified Code(s): G43.909 - Migraine, unspecified, not intractable, without status migrainosus Plan: Stable lately Patient used to take Fioricet PRN in the past (5) Vitamin D deficiency: Code(s): E55.9 - Vitamin D deficiency, unspecified Plan: Continue Vitamin D3 2000 units QD (6) Left foot pain: Code(s): M79.672 - Pain in left foot Plan: Will send patient for x-rays of the left foot for further evaluation (7) Low back pain: Code(s): M54.50 - Low back pain, unspecified Qualifiers: Back pain laterality: midline Chronicity: chronic Sciatica presence: without sciatica Qualified Code(s): M54.50 - Low back pain, unspecified; G89.29 - Other chronic pain Plan: (+) Hx of scoliosis Will send her for repeat lumbar spine x-rays for further evaluation of her recently increasing back pain; will include thoracic spine x-rays as well in light of her Hx of scoliosis Reinforced activity and weight-lifting restrictions Continue Oxycodone-Acetaminophen 5-325 mg 1 to 2 times a day as needed (8) GERD without esophagitis: Code(s): K21.9 - Gastro-esophageal reflux disease without esophagitis Plan: Dietary restrictions reinforced Continue Omeprazole 20 mg BID and Famotidine 20 mg Q HS PRN (9) Irritable bowel syndrome (IBS): Code(s): K58.9 - Irritable bowel syndrome without diarrhea Qualifiers: Irritable bowel syndrome type: unspecified Qualified Code(s): K58.9 - Irritable bowel syndrome without diarrhea Plan: Continue Dicyclomine 20 mg TID PRN Advised that this is also most likely the main cause of her intermittent lower abdominal cramping pain and loose stools Follow up with GI as scheduled - she has been referred to GI for further evaluation and management at her last appointment (10) Hives: Code(s): L50.9 - Urticaria, unspecified Plan: Used to receive Xolair injections from health care marketing specialist once a month States that this has been stable lately (11) Anxiety: Code(s): F41.9 - Anxiety disorder, unspecified Plan: Continue Lorazepam 1 mg BID PRN (12) Depression: Code(s): F32.A - Depression, unspecified Qualifiers: Active/Remission status: currently active Depression Type: major depressive disorder Major depression episode severity: unspecified Major depression recurrence: recurrent Qualified Code(s): F33.9 - Major depressive disorder, recurrent, unspecified Plan: Patient used to take Escitalopram 10 mg QD but has not had it refilled or taken it in over a year now - feels that she has been doing okay without it so far (13) Overweight (BMI 25.0-29.9): Code(s): E66.3 - Overweight Plan: Reinforced diet/exercise as tolerated/lose weight Plan Follow up in 3 months Orders: Orders XR foot LT min 3V 05/02/23 M79.672 - Pain in left foot Comprehensive Kyle. Panel Fast 05/02/23 E78.00 - Pure hypercholesterolemia, unspecified, Z00.00 - Encounter for general adult medical examination without abnormal findings UA CC w/rflx Micro + Cult 05/02/23 R30.0 - Dysuria, Z00.00 - Encounter for general adult medical examination without abnormal findings Vitamin D 25-OH Total 05/02/23 E55.9 - Vitamin D deficiency, unspecified, Z00.00 - Encounter for general adult medical examination without abnormal findings XR thoracic spine 3V 05/02/23 M54.9 - Dorsalgia, unspecified, M41.9 - Scoliosis, unspecified XR lumbar spine 2-3V 05/02/23 M54.9 - Dorsalgia, unspecified, M41.9 - Scoliosis, unspecified Complete Blood Count Auto Diff 05/02/23 I10 - Essential (primary) hypertension, Z00.00 - Encounter for general adult medical examination without abnormal findings Lipid Panel 05/02/23 E78.00 - Pure hypercholesterolemia, unspecified, Z00.00 - Encounter for general adult medical examination without abnormal findings TSH reflex Free T4 05/02/23 E78.00 - Pure hypercholesterolemia, unspecified, Z00.00 - Encounter for general adult medical examination without abnormal findings Vitamin B12 and Folate 05/02/23 E53.8 - Deficiency of other specified B group vitamins, Z00.00 - Encounter for general adult medical examination without abnormal findings Medications: Changed From amlodipine 2.5 mg PO DAILY 30 days 30 tabs 1RF To amlodipine 2.5 mg PO DAILY 90 tabs 1RF 90 days Coding Level of Care Code Est Pt Prev Care 40-64y(50241) Diagnoses Annual physical exam Z00.00 Iron deficiency anemia, unspecified iron deficiency anemia type D50.9 Anemia type: iron deficiency Iron deficiency anemia type: unspecified iron deficiency Benign essential hypertension I10 Migraine without status migrainosus, not intractable, unspecified migraine type G43.909 Intractability: not intractable Migraine type: unspecified Status migrainosus presence: without status migrainosus Vitamin D deficiency E55.9 Left foot pain M79.672 Chronic midline low back pain without sciatica M54.50; G89.29 Back pain laterality: midline Chronicity: chronic Sciatica presence: without sciatica GERD without esophagitis K21.9 Irritable bowel syndrome, unspecified type K58.9 Irritable bowel syndrome type: unspecified Hives L50.9 Anxiety F41.9 Episode of recurrent major depressive disorder, unspecified depression episode severity F33.9 Active/Remission status: currently active Depression Type: major depressive disorder Major depression episode severity: unspecified Major depression recurrence: recurrent Overweight (BMI 25.0-29.9) E66.3
== END 2023-05-02 13:30 | disposition home or self-care (01) ==
PROVIDERS: Visit Provider Internal Medicine
DX: Z00.00 Encounter for general adult medical examination without abnormal findings (principal); D50.9 Iron deficiency anemia, unspecified; I10 Essential (primary) hypertension; G43.909 Migraine, unspecified, not intractable, without status migrainosus; E55.9 Vitamin D deficiency, unspecified; M79.672 Pain in left foot; M54.50 Low back pain, unspecified; G89.29 Other chronic pain; K21.9 Gastro-esophageal reflux disease without esophagitis; K58.9 Irritable bowel syndrome, unspecified; L50.9 Urticaria, unspecified; F33.9 Major depressive disorder, recurrent, unspecified
CPT/HCPCS: 99396

== ENCOUNTER 2023-08-11 10:31 | Emergency (ER) | payer OTHER, SELFPAY ==
[2023-08-11 11:17] VITALS: BP 162/97; PULSE 75; RESP 14; TEMP 36.6; O2SAT 98; BMI 26.1
--- NOTE | 2023-08-11 11:19 | ED_ITS ---
HPI - Female Genitourinary General Chief complaint: Abdominal Pain Stated complaint: Abdominal Pain Time Seen by Provider: 08/11/23 15:44 Related Data Previous Rx's Medication Instructions Recorded ascorbic acid (vitamin C) 500 mg 500 mg PO BID #60 tabs 10/21/21 tablet (Vitamin C) ondansetron 4 mg disintegrating 4 mg PO Q6H PRN nausea and 10/27/22 tablet vomiting #14 tabs cholecalciferol (vitamin D3) 50 50 mcg PO DAILY #90 caps 02/17/23 mcg (2,000 unit) capsule doxycycline hyclate 100 mg capsule 100 mg PO BID 14 days #28 caps 03/02/23 bismuth subsalicylate 262 mg 2 tab PO QID 14 days #112 tabs 03/03/23 chewable tablet metronidazole 500 mg tablet 1,000 mg (2 x 500 mg) PO BID 14 03/03/23 days #56 tabs omeprazole 20 mg capsule,delayed 20 mg PO BID 30 days #60 caps 03/12/23 release ascorbic acid (vitamin C) 500 mg 500 mg PO BID #60 tabs 04/03/23 tablet irbesartan 300 mg tablet 300 mg PO DAILY 90 days #90 tabs 04/15/23 amlodipine 2.5 mg tablet 2.5 mg PO DAILY 90 days #90 tabs 05/02/23 famotidine 20 mg tablet (Pepcid) 20 mg PO BEDTIME #30 tabs 05/16/23 BLD PRESSURE MONITOR CUFF #1 ea 05/18/23 ferrous sulfate 325 mg (65 mg 325 mg PO DAILY #30 tabs 06/21/23 iron) tablet lorazepam 1 mg tablet 1 mg PO BID PRN anxiety 30 days 07/25/23 #60 tabs oxycodone-acetaminophen 5 mg-325 1 tab PO .1 to 2 times a day PRN 07/25/23 mg tablet pain 28 days #56 tabs Allergies Allergy/AdvReac Type Severity Reaction Status Date / Time nut - unspecified [NUTS] Allergy Severe HIVES, Verified 05/02/23 13:09 ANAPHYLAXIS PMFSH Past Medical History Medical History Irritable bowel syndrome (IBS) Obesity (BMI 30-39.9) Low back pain Migraine Hives Benign essential hypertension Hernia Scoliosis HTN (hypertension) Fibromyalgia Anemia Surgical History Hx of section Family History Family History Maternal Aunt Cancer Social History Social History Household Members: Children Housing: Apartment Are you a primary career resource technician to a significant other at home: No Do you presently have visiting nurse or other home services: No Alcohol intake: never Patient Tobacco Use Status: Never used Tobacco e-Cigarette/Vaping Use: Never Used Second Hand Smoke Exposure: No Advance Directives: No Advance Directives Information Provided: No service: No Current occupational status: disabled Cognitive needs: No Hearing needs: No Vision needs: No Physical Exam 2 Vital Signs: Vital Signs: Last Vital Signs Temp 98.6 F 08/11/23 15:46 Pulse 54 08/11/23 15:46 Resp 16 08/11/23 15:46 BP 136/84 08/11/23 15:46 Pulse Ox 98 08/11/23 15:46 O2 Del Method Room Air 08/11/23 15:46 BMI result Body Mass Index 26.1 Course Course Course Narrative: This is a rapid medical exam: Additional HPI, ROS, PE not included below will be deferred to primary provider. Abdominal pain with heavy period for the past 10 days with passing clots. Reports feeling shaky and nauseous today with weakness. States that she has recently had unprotected sex. Plan labs, physical exam Hx Anemia Reevaluation(s) Reevaluation #1: LWCT Medical Decision Making Lab Data 08/11/23 11:32 08/11/23 11:32 Labs: Lab Results 08/11/23 08/11/23 Range/Units 11:32 11:34 WBC 5.7 (4.8-10.8) X10*3/uL RBC 3.79 L (4.20-5.50) X10*6/uL Hgb 10.0 L (12.0-16.0) g/dl Hct 31.7 L (37.0-47.0) % MCV 83.6 (80.0-98.0) fL MCH 26.4 L (27.0-33.0) pg MCHC 31.5 (31.0-35.0) g/dl RDW 15.2 (11.0-16.0) % Plt Count 268 D (160-400) X10*3/uL MPV 11.3 (9.4-12.3) fL Immature Gran % (Auto) 0.2 (0.0-0.4) % Neut % (Auto) 67.2 (45-73) % Lymph % (Auto) 23.3 (20-40) % Elliott % (Auto) 6.9 (2-11) % Eos % (Auto) 1.9 (0-4) % Baso % (Auto) 0.5 (0-2) % Lymph # (Auto) 1.3 (1.2-4.9) X10*3/uL Elliott # (Auto) 0.4 (0.1-1.2) X10*3/uL Eos # (Auto) 0.1 (0.0-0.4) X10*3/uL Baso # (Auto) 0.0 (0.0-0.2) X10*3/uL Abs Immat Gran (auto) 0.01 (0.00-0.03) X10*3/uL Absolute Neuts (auto) 3.8 (2.0-8.3) x10*3/uL Absolute Nucleated RBC 0.000 (0.0-0.012) X10*3/uL Nucleated RBC % (auto) 0.0 (0.0-0.2) /100WBC Sodium 138 (135-145) mmol/L Potassium 3.9 (3.3-5.1) mmol/L Chloride 106 (96-108) mmol/L Carbon Dioxide 26 (22-29) mmol/L Anion Gap 10 L (12-20) BUN 10 (9-16) mg/dL Creatinine 0.70 (0.5-1.4) mg/dL Estim Creat Clear Calc 112.6 Estimated GFR > 60 Random Glucose 109 (60-115) mg/dL Calcium 10.0 (8.4-10.2) mg/dL Total Bilirubin 0.4 (0.0-1.0) mg/dL AST 14 (5-31) U/L ALT 11 (0-31) U/L Alkaline Phosphatase 57 (39-117) U/L Total Protein 7.3 (6.5-8.0) g/dL Albumin 4.3 (3.5-5.0) g/dL Urine Test NEGATIVE (NEGATIVE) Discharge Plan Discharge Clinical Impression: Left before treatment completed Patient Disposition: Home, Self-Care Instructions: Against Medical Advice (ED) Prescriptions: No Action cholecalciferol (vitamin D3) 50 mcg (2,000 unit) capsule 50 mcg PO DAILY Qty: 90 3RF doxycycline hyclate 100 mg capsule 100 mg PO BID 14 Days Qty: 28 0RF bismuth subsalicylate 262 mg tablet,chewable 2 tab PO QID 14 Days Qty: 112 0RF metronidazole 500 mg tablet 1,000 mg PO BID 14 Days Qty: 56 0RF omeprazole 20 mg capsule,delayed release(DR/EC) 20 mg PO BID 30 Days Qty: 60 3RF ascorbic acid (vitamin C) 500 mg Tablet 500 mg PO BID Qty: 60 6RF irbesartan 300 mg tablet 300 mg PO DAILY 90 Days Qty: 90 1RF famotidine [Pepcid] 20 mg tablet 20 mg PO BEDTIME Qty: 30 3RF (DME) BLD PRESSURE MONITOR CUFF medium See Rx Instructions .Route .MEDSUPPLY Qty: 1 0RF Rx Instructions: Use as directed (medium size) ferrous sulfate 325 mg (65 mg iron) tablet 325 mg PO DAILY Qty: 30 3RF oxycodone-acetaminophen 5-325 mg tablet 1 tab PO .1 to 2 times a day PRN (Reason: pain) 28 Days Qty: 56 0RF lorazepam 1 mg tablet 1 mg PO BID PRN (Reason: anxiety) 30 Days Qty: 60 0RF ascorbic acid (vitamin C) [Vitamin C] 500 mg Tablet 500 mg PO BID Qty: 60 3RF ondansetron 4 mg tablet,disintegrating 4 mg PO Q6H PRN (Reason: nausea and vomiting) Qty: 14 0RF amlodipine 2.5 mg tablet 2.5 mg PO DAILY 90 Days Qty: 90 1RF Referrals: Bala Vasquez MD [Primary Care Provider] - Stand Alone Forms: Against Medical Advice Interventions: ED Discharge Assessment Last Done: 08/11/23 15:46 Discharge Date/Time: 08/11/23 15:46
[2023-08-11 11:46] LABS: MANUAL DIFF FLAG NO
[2023-08-11 11:50] LABS: UPreg QC Valid YES; Urine Pregnancy NEGATIVE (NEGATIVE)
[2023-08-11 12:01] LABS: Basophils Percent Auto 0.5 % (0-2); Eosinophils Absolute Auto 0.1 X10*3/uL (0.0-0.4); Eosinophils Percent Auto 1.9 % (0-4); Hematocrit 31.7 % (37.0-47.0); Imm Gran Abs Auto 0.01 X10*3/uL (0.00-0.03); Imm Gran Pct Auto 0.2 % (0.0-0.4); Lymphocytes Absolute Auto 1.3 X10*3/uL (1.2-4.9); Lymphocytes Percent Auto 23.3 % (20-40); Mean Corpuscular HGB Conc 31.5 g/dl (31.0-35.0); Mean Corpuscular Hemoglobin 26.4 pg (27.0-33.0); Mean Corpuscular Volume 83.6 fL (80.0-98.0); Mean Platelet Volume 11.3 fL (9.4-12.3); Monocytes Absolute Auto 0.4 X10*3/uL (0.1-1.2); Monocytes Percent Auto 6.9 % (2-11); Neutrophils Absolute Auto 3.8 x10*3/uL (2.0-8.3); Neutrophils Percent Auto 67.2 % (45-73); Platelet Count 268 X10*3/uL (160-400); Red Blood Count 3.79 X10*6/uL (4.20-5.50); Red Cell Distribution Width 15.2 % (11.0-16.0); White Blood Count 5.7 X10*3/uL (4.8-10.8)
[2023-08-11 12:06] LABS: Alanine Aminotransferase 11 U/L (0-31); Albumin Level 4.3 g/dL (3.5-5.0); Alkaline Phosphatase 57 U/L (39-117); Anion Gap 10 (12-20); Aspartate Amino Transferase 14 U/L (5-31); Bilirubin Total 0.4 mg/dL (0.0-1.0); Blood Urea Nitrogen 10 mg/dL (9-16); Carbon Dioxide 26 mmol/L (22-29); Chloride 106 mmol/L (96-108); Creatinine Clr Calc Pharmacy 112.6; Estimated Glomerular Filt Rate > 60; Glucose Random 109 mg/dL (60-115); Potassium 3.9 mmol/L (3.3-5.1); Sodium 138 mmol/L (135-145); Total Protein 7.3 g/dL (6.5-8.0)
[2023-08-11 15:46] VITALS: BP 136/84; PULSE 54; RESP 16; TEMP 37; O2SAT 98
== END 2023-08-11 15:46 | disposition home or self-care (01) ==
PROVIDERS: Nurse Practitioner Family; Emergency Provider Emergency Medicine; PCP Internal Medicine
DX: R10.9 Unspecified abdominal pain (principal); I10 Essential (primary) hypertension
CPT/HCPCS: 36415; 80053; 81025; 85025; 99282; 99283

== ENCOUNTER 2023-09-25 11:16 | Outpatient (AMB) | payer OTHER, SELFPAY ==
--- NOTE | 2023-09-25 11:24 | A.OFFPC_ITS ---
Vital Signs 09/25/23 11:26 Height 5 ft 9 in Weight 178 lb 2 oz BMI 26.3 BP 122/76 Blood Pressure Location Lt brachial Position Sitting Pulse 72 Pulse Source Pulse Oximeter Pulse Oximetry (%) 96 Oxygen Delivery Method Room Air Intake Visit Reasons: 3M Follow Up Intake Note: Patient is here to follow up on IBS, HTN, Scoliosis. Brew House Supervisor Required: No Card Assembler: Not Required per policy Accompanied by: Self / Same As Patient Allergies nut - unspecified [NUTS] Allergy (Severe, Verified 09/25/23 11:49) HIVES, ANAPHYLAXIS Medication List - Last Reconciled 09/25/23 by Bala Vasquez MD amlodipine 2.5 mg PO DAILY 90 days ascorbic acid (vitamin C) 500 mg PO BID bismuth subsalicylate 2 tabs PO QID 14 days [BLD PRESSURE MONITOR CUFF Use as directed (medium size)] cholecalciferol (vitamin D3) 50 mcg PO DAILY famotidine (Pepcid) 20 mg PO BEDTIME ferrous sulfate 325 mg PO DAILY irbesartan 300 mg PO DAILY 90 days lorazepam 1 mg PO BID PRN 30 days omeprazole 20 mg PO BID 30 days ondansetron 4 mg PO Q6H PRN oxycodone-acetaminophen 5-325 mg 1 tab PO .1 to 2 times a day PRN 28 days Tobacco use date assessed: 09/25/23 Dental Screening Dental Screen Date: 09/25/23 Did you have a dental visit in the last 12 months?: Yes Did you have a dental problem in the last 6 months where you did not have access to dental care?: No Was dental information given to patient?: Patient has dentist HPI 3M Follow Up HPI Details Patient comes in today for her follow up visit - was last seen in April 2023 Patient states that she has been going to her automatic print developer at [place] over the past few months and recently had some endometrial biopsy done but was advised that the samples they obtained were inconclusive and she was advised to return for a repeat biopsy, which she has not yet been able to schedule but now states that she plans to get that taken care of [facility] She also has not had her labs and x-rays ordered previously done yet - is wondering if she can go and get them done now while she [place] [facility] [place] that she went to the ER back in July 2023 for abdominal pain but states that she had to leave after a few hours as 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 ad she could not wait for the doctor to go and see her again - recalls having some labs done at the time but she does not know how her labs came out States that she is currently still experiencing increased pain in her left foot Is also still experiencing frequent back pains but states that her current Rx helps keep them manageable - will need her Percocet Rx refilled today She denies any headaches or dizziness Denies any chest pains, no increased SOB No nausea/vomiting, still has on and off abdominal pains but not lately No change in bowel habits noted Also needs her BP meds Rx refilled today [facility] Medical History (Updated 09/25/23 @ 12:29 by Bala Vasquez MD) Vitamin D deficiency Overweight (BMI 25.0-29.9) Irritable bowel syndrome (IBS) Obesity (BMI 30-39.9) Low back pain Migraine Hives Benign essential hypertension Hernia Scoliosis HTN (hypertension) Fibromyalgia Anemia Surgical History History of hernia surgery Hx of section Family History Maternal Aunt Cancer Social History Household Members: Children Housing: Apartment Are you a primary medicare sales representative to a significant other at home: No Do you presently have visiting nurse or other home services: No Alcohol intake: never Patient Tobacco Use Status: Never used Tobacco e-Cigarette/Vaping Use: Never Used Second Hand Smoke Exposure: No service: No Current occupational status: disabled Cognitive needs: No Hearing needs: No Vision needs: No Questionnaire PHQ-9 Over the last 2 weeks, how often have you been bothered by any of the following problems? 1. Little interest or pleasure in doing things: not at all 2. Feeling down, depressed, or hopeless: not at all 3. Trouble falling or staying asleep, or sleeping too much: not at all 4. Feeling tired or having little energy: not at all 5. Poor appetite or overeating: not at all 6. Feeling bad about yourself - or that you are a failure or have let yourself or your family down: not at all 7. Trouble concentrating on things, such as reading the newspaper or watching television: not at all 8. Moving or speaking so slowly that other people could have noticed. Or the opposite - being so fidgety or restless that you have been moving around a lot more than usual: not at all 9. Thoughts that you would be better off or of hurting yourself in some way: not at all Total score: 0 Depression Screening Interpretation: Negative Depression Screening Done: Yes 59736 - PHQ-9 Billing: Yes Source: Developed by Drs. Barrera Ruiz, Marlene Goldberg, Mesfin De Anda and colleagues, with an educational yuriy from [employer]. Thrive Questionnaire Date Thrive assessed: 09/25/23 I am a: Patient What is your living situation today?: I have a steady place to live Within the past 12 months, did the food you bought not last and you didn't have the money to get more?: Never true Within the past 12 months, did you worry whether your food would run out before you got money to buy more?: Never true Do you have trouble paying for medicines?: No Do you have trouble getting transportation to medical appointments?: No Do you have trouble paying your heating and electricity bill?: No Do you have trouble taking care of your child, family member or friend?: No Do you have trouble with day-to-day activities such as bathing, preparing meals, shopping, managing finances, etc.?: No Are you currently unemployed and looking for a job?: No Are you interested in more education?: No Currently or been in a relationship where the following occur: no concerns reported THRIVE Score: 0 AUDIT C Alcohol Use Questionnaire (AUDIT-C) 1. How often do you have a drink containing alcohol?: Never 3. How often do you have six or more drinks on one occasion?: Never Total Score: 0 Score Reviewed/Action Taken: Yes SNOW-7 AMB Questionnaire SNOW-7 Date SNOW - 7 assessed: 09/25/23 Feeling nervous, anxious, or on edge: 0 = Not at all Not being able to stop or control worryin = Not at all Worrying too much about different things: 0 = Not at all Trouble relaxin = Not at all Being so restless that it is hard to sit still: 0 = Not at all Becoming easily annoyed or irritable: 0 = Not at all Feeling afraid as if something awful might happen: 0 = Not at all Total SNOW-7 score (0-4 normal; 5-9 mild; 10-14 moderate; 15-21 severe): 0 Source: Developed by Drs. Barrera Ruiz, Marlene Goldberg, Mesfin De Anda and colleagues, with an educational yuriy from [employer]. Review of Systems Const Reports body aches, Denies chills, Reports fatigue, Denies fever(s) and Denies headache(s) ENT Denies dysphagia, Denies dizziness, Denies otalgia, Denies headache(s), Denies neck pain, Denies odynophagia and Denies sore throat Card Denies chest pain, Denies rapid heart rate, Denies irregular heart rhythm, Denies palpitations and Denies dyspnea Resp Denies chest congestion, Denies cough, Denies dyspnea and Denies wheezing GI Reports abdominal pain (recurrent, intermittent, especially over the lower abdomen), Reports constipation, Denies dysphagia, Denies heartburn, Denies nausea, Denies odynophagia and Denies vomiting Denies hematuria, Denies dysuria and Denies urinary urgency Musc Details: (+) left foot pain Reports as per HPI, Reports back pain (over the lower back - chronic), Denies arthralgias, Denies joint swelling and Denies neck pain Skin/Breast Details: (+) on and off small vesicular lesions on her left lower torso Neuro Denies dizziness, Denies headache(s) and Denies paresthesias Psych Reports anxiety and Reports depression Endo Reports fatigue and Denies palpitations Matteo/Lymph Denies easy bruising Aller/Immun Denies wheezing Physical exam (Primary Care) Vital Signs: Last Vital Signs Pulse 72 09/25/23 11:26 BP 122/76 09/25/23 11:26 Pulse Ox 96 09/25/23 11:26 Oxygen Delivery Method Room Air 09/25/23 11:26 BMI result Body Mass Index 26.3 Tobacco/Smoking Status: Tobacco use Status Tobacco use date assessed 09/25/23 09/25/23 11:32 Patient Tobacco Use Status Never used Tobacco 09/25/23 11:32 e-Cigarette/Vaping Use Never Used 09/25/23 11:32 PHQ-9: PHQ-9 Score PHQ-9: Total score 0 09/25/23 11:32 Depression Screening Interpretation: Negative Thrive Assessment: Date of Thrive Assessment Date Thrive assessed 09/25/23 09/25/23 11:32 Currently or been in a relationship where the following occur: no concerns reported Const General: no acute distress and alert HENMT Ears: TM's normal bilaterally and EAC's normal Throat: Yes posterior oropharynx normal and Yes tonsils normal (no TP congestion) Neck Neck: Yes no lymphadenopathy and Yes supple Thyroid: Thyroid normal Resp Auscultation: clear to auscultation bilaterally, no rales and no wheezes Cardio Rate: regular rate Rhythm: regular rhythm Heart sounds: no murmurs GI Palpation (GI): Soft to palpation and nontender Auscultation: normal bowel sounds General: Yes no CVA tenderness Back/Spine/Pelvis Back: no CVA tenderness Thoracic/Lumbar Spine: thoracic spinal tenderness and lumbar spinal tenderness Skin Rashes: no rashes Extrem General: Yes no clubbing, cyanosis or edema Left lower extremity: foot Details: tenderness and no edema Assessment and Plan Assessment & Plan (1) Anemia: Code(s): D64.9 - Anemia, unspecified Qualifiers: Anemia type: iron deficiency Iron deficiency anemia type: unspecified iron deficiency Qualified Code(s): D50.9 - Iron deficiency anemia, unspecified Plan: Patient has not been taking her oral Ferrous Sulfate 325 mg QD regularly as it tends to irritate her stomach Her H/H done at the ER back in July 2023 was again low at 10.0/31.7 Follow up with hematology as scheduled She is currently also seeing her automatic print developer at [facility] and they have reportedly recently performed some endometrial biopsy on her which came back inconclusive Patient states that she has been asked to return [facility] for a repeat biopsy and she has not been able to do so yet She is encouraged to try to get this done and completed as soon as possible so we can get some resolution on this as there is a likelihood that her anemia is related to her vaginal/menstrual bleeding (2) Benign essential hypertension: Code(s): I10 - Essential (primary) hypertension Plan: Reinforced low sodium diet - goal is systolic BP of 120 mm or less Continue Irbesartan 300 mg QD and Amlodipine 2.5 mg QD - Rx refilled She also has not had her previously ordered labs done yet and is instructed to go and get them done [facility] - new lab orders placed (3) Migraine: Code(s): G43.909 - Migraine, unspecified, not intractable, without status migrainosus Qualifiers: Migraine type: unspecified Status migrainosus presence: without status migrainosus Intractability: not intractable Qualified Code(s): G43.909 - Migraine, unspecified, not intractable, without status migrainosus Plan: Stable lately Used to take Fioricet PRN in the past (4) Vitamin D deficiency: Code(s): E55.9 - Vitamin D deficiency, unspecified Plan: Continue Vitamin D3 2000 units QD (5) Low back pain: Code(s): M54.50 - Low back pain, unspecified Qualifiers: Chronicity: chronic Back pain laterality: midline Sciatica presence: without sciatica Qualified Code(s): M54.50 - Low back pain, unspecified; G89.29 - Other chronic pain Plan: (+) Hx of scoliosis Reinforced activity and weight-lifting restrictions Continue Oxycodone-Acetaminophen 5-325 mg 1 to 2 times a day as needed - Rx refilled Will send her for repeat lumbar spine x-rays for further evaluation; will include thoracic spine x-rays as well (6) Left foot pain: Code(s): M79.672 - Pain in left foot Plan: Will again send her for left foot x-rays [facility] for further evaluation - previous x-ray order has been updated (7) Irritable bowel syndrome (IBS): Code(s): K58.9 - Irritable bowel syndrome without diarrhea Qualifiers: Irritable bowel syndrome type: unspecified Qualified Code(s): K58.9 - Irritable bowel syndrome without diarrhea Plan: Continue Dicyclomine 20 mg TID PRN She has been advised that this is most likely the main cause of her intermittent lower abdominal cramping pain and loose stools Follow up with GI as scheduled (8) GERD without esophagitis: Code(s): K21.9 - Gastro-esophageal reflux disease without esophagitis Plan: Dietary restrictions reinforced Continue Omeprazole 20 mg BID and Famotidine 20 mg Q HS PRN (9) Folliculitis: Code(s): L73.9 - Follicular disorder, unspecified Plan: Patient has expressed her concerns that these could be recurrent herpes lesions - states that this was also mentioned by her automatic print developer as a possibility recently Will send her to check for herpes virus serology for further evaluation (10) Hives: Code(s): L50.9 - Urticaria, unspecified Plan: Patient used to receive Xolair injections from her supervisor dumping once a month but has not gotten her injections in a while now States that this has been stable lately (11) Anxiety: Code(s): F41.9 - Anxiety disorder, unspecified Plan: Continue Lorazepam 1 mg BID PRN (12) Depression: Code(s): F32.A - Depression, unspecified Qualifiers: Depression Type: major depressive disorder Major depression recurrence: recurrent Active/Remission status: currently active Major depression episode severity: unspecified Qualified Code(s): F33.9 - Major depressive disorder, recurrent, unspecified Plan: Patient used to take Escitalopram 10 mg QD but has not had it refilled or taken it in almost 2 years now - thinks that she has been doing okay without it so far (13) Overweight (BMI 25.0-29.9): Code(s): E66.3 - Overweight Plan: Reinforced diet/exercise as tolerated/lose weight Plan Follow up in 3 months Orders: Orders Complete Blood Count Auto Diff Today D64.9 - Anemia, unspecified TSH reflex Free T4 Today E78.00 - Pure hypercholesterolemia, unspecified IRON PROFILE Today D50.9 - Iron deficiency anemia, unspecified Herpes Simplex Virus Ab IgG Today L73.9 - Follicular disorder, unspecified Lipid Panel Today E78.00 - Pure hypercholesterolemia, unspecified Comprehensive [place]. Panel Fast Today E78.00 - Pure hypercholesterolemia, unspecified UA CC w/rflx Micro + Cult Today R30.0 - Dysuria Vitamin D 25-OH Total Today E55.9 - Vitamin D deficiency, unspecified HSV I and II,IHC Today L73.9 - Follicular disorder, unspecified Medications: Refilled lorazepam 1 mg PO BID 30 days PRN 60 tabs 0RF anxiety oxycodone-acetaminophen 5-325 mg 1 tab PO .1 to 2 times a day 28 days PRN 56 tabs 0RF pain amlodipine 2.5 mg PO DAILY 90 days 90 tabs 1RF irbesartan 300 mg PO DAILY 90 days 90 tabs 1RF Coding Level of Care Code Est Pt Level 4 (65063) Diagnoses Iron deficiency anemia, unspecified iron deficiency anemia type D50.9 Anemia type: iron deficiency Iron deficiency anemia type: unspecified iron deficiency Benign essential hypertension I10 Migraine without status migrainosus, not intractable, unspecified migraine type G43.909 Migraine type: unspecified Status migrainosus presence: without status migrainosus Intractability: not intractable Vitamin D deficiency E55.9 Chronic midline low back pain without sciatica M54.50; G89.29 Chronicity: chronic Back pain laterality: midline Sciatica presence: without sciatica Left foot pain M79.672 Irritable bowel syndrome, unspecified type K58.9 Irritable bowel syndrome type: unspecified GERD without esophagitis K21.9 Folliculitis L73.9 Hives L50.9 Anxiety F41.9 Episode of recurrent major depressive disorder, unspecified depression episode severity F33.9 Depression Type: major depressive disorder Major depression recurrence: recurrent Active/Remission status: currently active Major depression episode severity: unspecified Overweight (BMI 25.0-29.9) E66.3
[2023-09-25 11:26] VITALS: BP 122/76; PULSE 72; O2SAT 96; BMI 26.3
== END 2023-09-25 12:03 | disposition home or self-care (01) ==
PROVIDERS: PCP Internal Medicine; Visit Provider Internal Medicine
DX: D50.9 Iron deficiency anemia, unspecified (principal); F33.9 Major depressive disorder, recurrent, unspecified; I10 Essential (primary) hypertension; G43.909 Migraine, unspecified, not intractable, without status migrainosus; E55.9 Vitamin D deficiency, unspecified; M54.50 Low back pain, unspecified; G89.29 Other chronic pain; M79.672 Pain in left foot; K58.9 Irritable bowel syndrome, unspecified; K21.9 Gastro-esophageal reflux disease without esophagitis; L73.9 Follicular disorder, unspecified; L50.9 Urticaria, unspecified
CPT/HCPCS: 99214

== ENCOUNTER 2023-09-29 10:21 | Outpatient (REF) | payer OTHER, SELFPAY ==
--- NOTE | ~2023-09-29 | XR_ITS ---
EXAMINATION: XR THORACIC SPINE XR LUMBAR SPINE CLINICAL INFORMATION: Patient stated no injury, pain in upper and lower back and left foot. COMPARISON: CT abdomen and pelvis 10/27/2022. Chest radiographs 11/12/2017. Lumbar spine radiographs of 08/18/2009 have been requested, but we were unable to access them at the time of interpretation. TECHNIQUE: 3 views of the thoracic spine. 3 views of the lumbar spine. FINDINGS: THORACIC SPINE: The bones are diffusely demineralized. Marked S-shaped thoracolumbar scoliosis with a rotatory component which limits visualization of mid to lower thoracic vertebral bodies on the lateral view. Moderate multilevel degenerative changes in the thoracic spine. LUMBAR SPINE: Levoscoliosis of the mid to lower lumbar spine. Bilateral sacroiliac joints are symmetric. Facet arthritis in the mid to lower lumbar spine. Multilevel lumbar spondylosis with [id number] loss of disc space height at L5-S1. XR/XR lumbar spine 2-3V IMPRESSION: 1. Marked S-shaped thoracolumbar scoliosis with a rotatory component which limits visualization of mid to lower thoracic vertebral bodies on the lateral view. 2. Moderate multilevel degenerative changes in the thoracic spine. 3. Multilevel lumbar spondylosis with [id number] loss of disc space height at L5-S1.
--- NOTE | ~2023-09-29 | XR_ITS ---
EXAMINATION: XR FOOT, LEFT CLINICAL INFORMATION: Pain in left foot. Patient states no injury, pain in upper and lower back. COMPARISON: 10/19/2016 TECHNIQUE: AP, lateral, and oblique views of the left foot. FINDINGS: Small plantar calcaneal spur. Mild degenerative changes with hypertrophic change at the midfoot. Mild degenerative changes in the first metatarsophalangeal joint. XR/XR foot LT min 3V IMPRESSION: 1. Mild degenerative changes. 2. Small plantar calcaneal spur.
--- NOTE | ~2023-09-29 | XR_ITS ---
EXAMINATION: XR THORACIC SPINE XR LUMBAR SPINE CLINICAL INFORMATION: Patient stated no injury, pain in upper and lower back and left foot. COMPARISON: CT abdomen and pelvis 10/27/2022. Chest radiographs 11/12/2017. Lumbar spine radiographs of 08/18/2009 have been requested, but we were unable to access them at the time of interpretation. TECHNIQUE: 3 views of the thoracic spine. 3 views of the lumbar spine. FINDINGS: THORACIC SPINE: The bones are diffusely demineralized. Marked S-shaped thoracolumbar scoliosis with a rotatory component which limits visualization of mid to lower thoracic vertebral bodies on the lateral view. Moderate multilevel degenerative changes in the thoracic spine. LUMBAR SPINE: Levoscoliosis of the mid to lower lumbar spine. Bilateral sacroiliac joints are symmetric. Facet arthritis in the mid to lower lumbar spine. Multilevel lumbar spondylosis with [id number] loss of disc space height at L5-S1. XR/XR thoracic spine 3V IMPRESSION: 1. Marked S-shaped thoracolumbar scoliosis with a rotatory component which limits visualization of mid to lower thoracic vertebral bodies on the lateral view. 2. Moderate multilevel degenerative changes in the thoracic spine. 3. Multilevel lumbar spondylosis with [id number] loss of disc space height at L5-S1.
[2023-09-29 10:41] LABS: MANUAL DIFF FLAG NO
[2023-09-29 10:54] LABS: Basophils Percent Auto 0.4 % (0-2); Eosinophils Absolute Auto 0.1 X10*3/uL (0.0-0.4); Eosinophils Percent Auto 2.4 % (0-4); Hematocrit 35.5 % (37.0-47.0); Hemoglobin 11.1 g/dl (12.0-16.0); Imm Gran Abs Auto 0.01 X10*3/uL (0.00-0.03); Imm Gran Pct Auto 0.2 % (0.0-0.4); Lymphocytes Absolute Auto 1.5 X10*3/uL (1.2-4.9); Lymphocytes Percent Auto 27.2 % (20-40); Mean Corpuscular HGB Conc 31.3 g/dl (31.0-35.0); Mean Corpuscular Hemoglobin 26.2 pg (27.0-33.0); Mean Corpuscular Volume 83.7 fL (80.0-98.0); Mean Platelet Volume 11.7 fL (9.4-12.3); Monocytes Absolute Auto 0.3 X10*3/uL (0.1-1.2); Monocytes Percent Auto 6.1 % (2-11); Neutrophils Absolute Auto 3.5 x10*3/uL (2.0-8.3); Neutrophils Percent Auto 63.7 % (45-73); Platelet Count 220 X10*3/uL (160-400); Red Blood Count 4.24 X10*6/uL (4.20-5.50); Red Cell Distribution Width 14.1 % (11.0-16.0); White Blood Count 5.5 X10*3/uL (4.8-10.8)
[2023-09-29 12:04] LABS: Appearance Urine Clear; Color Urine Yellow; Glucose Urine UA Negative (Negative); Leukocyte Esterase Urine Negative (Negative); Nitrite Urine Negative (Negative); PH 5.5 (5.0-9.0); Specific Gravity - Urine >= 1.030 (1.005-1.025); UMIC TRIGGER UACC YES; Urine Blood Small (1+) (Negative); Urine Ketones Negative (Negative); Urine Protein Negative (Neg-Trace)
[2023-09-29 12:12] LABS: Alanine Aminotransferase 10 U/L (0-31); Albumin Level 4.3 g/dL (3.5-5.0); Alkaline Phosphatase 52 U/L (39-117); Anion Gap 12 (12-20); Aspartate Amino Transferase 15 U/L (5-31); Bilirubin Total 0.5 mg/dL (0.0-1.0); Blood Urea Nitrogen 12 mg/dL (9-16); Calcium 9.6 mg/dL (8.4-10.2); Carbon Dioxide 26 mmol/L (22-29); Chloride 106 mmol/L (96-108); Cholesterol 156 mg/dL (<200); Estimated Glomerular Filt Rate > 60; Glucose Fasting 105 mg/dL (60-99); HDL Cholesterol 50 mg/dL (>40); Iron 50 mcg/dL (30-160); LDL Cholesterol Calculated 96 mg/dL (<100); Percent Iron Saturation 15 % (15-50); Sodium 140 mmol/L (135-145); TSH reflex Free T4 0.88 uIU/mL (0.32-4.0); Total Iron Binding Capacity 336 mcg/dL (228-428); Total Protein 7.4 g/dL (6.5-8.0); Triglycerides 53 mg/dL (<150); Unsaturated Iron Binding 286 ug/dL; Vitamin D 25-OH Total 17.7 ng/mL (>30)
[2023-09-29 12:18] LABS: Bacteria Urine None Seen (None Seen); Hyaline Casts Urine 0-2 /LPF (0-2); RBC Urine 0-2 /HPF (0-2); WBC Urine 0-5 /HPF (0-5)
[2023-09-29 12:27] LABS: Folate 11.5 ng/mL (> or = 4.0); Vitamin B12 437 pg/mL (200-900)
== END 2023-09-29 10:22 | disposition home or self-care (01) ==
LOC: HO.LAB 10:21
PROVIDERS: PCP Internal Medicine; Visit Provider Internal Medicine
DX: Z00.00 Encounter for general adult medical examination without abnormal findings (principal); E78.00 Pure hypercholesterolemia, unspecified; E55.9 Vitamin D deficiency, unspecified; D50.9 Iron deficiency anemia, unspecified; L73.9 Follicular disorder, unspecified; E53.8 Deficiency of other specified B group vitamins; M54.9 Dorsalgia, unspecified; M41.9 Scoliosis, unspecified; M79.672 Pain in left foot
CPT/HCPCS: 36415; 72072; 72100; 73630; 80053; 80061; 81001; 81003; 82306; 82607; 82746; 83540; 84443; 85025; 86695; 86696

== ENCOUNTER 2024-02-27 10:37 | Outpatient (REF) | payer OTHER, SELFPAY ==
--- NOTE | ~2024-02-27 | MM_ITS ---
EXAMINATION: MM SCREENING DIGITAL BREAST TOMOSYNTHESIS, BILATERAL CLINICAL INFORMATION: Screening. Asymptomatic. COMPARISON: Mammography: Comparison is made with available priors TECHNIQUE: Digital breast mammography with tomosynthesis is performed in both the craniocaudal and mediolateral oblique views along with computer-aided detection (CAD). FINDINGS: The breasts are heterogeneously dense, which may obscure small masses (ACR BI-RADS breast composition Category c). Right marker clip. Post surgical changes of the left breast are stable. There are no significant masses, abnormal calcifications, or other abnormalities. MM/MM tomosynthesis screening BI IMPRESSION: No mammographic evidence of malignancy. Patient describes intermittent left breast pain. Recommend clinical evaluation and if there is focal pain or if deemed clinically significant a diagnostic workup can be ordered and performed. ASSESSMENT: BI-RADS BI-RADS 2 - Benign Findings RECOMMENDATION: Routine annual mammography screening. 1 year F/U This examination should not preclude the clinical evaluation of a suspicious palpable abnormality. This patient's information was entered into a reminder system with a target due date for their next mammogram. Electronically signed by: Sherri Pinzon DO 03/08/2024 04:53 PM EDT
== END 2024-02-27 10:38 | disposition home or self-care (01) ==
LOC: HO.MAMMO 10:37
PROVIDERS: PCP Internal Medicine; Visit Provider Internal Medicine
DX: Z12.31 Encounter for screening mammogram for malignant neoplasm of breast (principal)
CPT/HCPCS: 77063; 77067

== ENCOUNTER → 2024-02-27 10:45 | Outpatient (BNV) | payer OTHER, SELFPAY | PROVIDERS: PCP Internal Medicine; Visit Provider Internal Medicine | DX: Z12.31 Encounter for screening mammogram for malignant neoplasm of breast (principal) | CPT/HCPCS: 77063; 77067 ==

== ENCOUNTER 2024-03-27 13:17 | Outpatient (AMB) | payer OTHER, SELFPAY ==
[2024-03-27 13:18] VITALS: BP 142/88; PULSE 88; O2SAT 97; BMI 27.0
--- NOTE | 2024-03-27 13:18 | A.OFFPC_ITS ---
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: No Accompanied by: Self / Same As Patient Allergies nut - unspecified [NUTS] Allergy (Severe, Verified 03/27/24 13:43) HIVES, ANAPHYLAXIS Medication List - Last Reconciled 03/27/24 by Bala Vasquez MD amlodipine 2.5 mg PO DAILY 90 days ascorbic acid (vitamin C) 500 mg PO BID bismuth subsalicylate 2 tabs PO QID 14 days [BLD PRESSURE MONITOR CUFF Use as directed (medium size)] cholecalciferol (vitamin D3) 50 mcg PO DAILY famotidine (Pepcid) 20 mg PO BEDTIME ferrous sulfate 325 mg PO DAILY irbesartan 300 mg PO DAILY 90 days lorazepam 1 mg PO BID PRN 30 days omeprazole 20 mg PO BID 30 days ondansetron 4 mg PO Q6H PRN oxycodone-acetaminophen 5-325 mg 1 tab PO .1 to 2 times a day PRN 28 days Tobacco use date assessed: 03/27/24 Dental Screening Dental Screen Date: 03/27/24 Did you have a dental visit in the last 12 months?: Yes Did you have a dental problem in the last 6 months where you did not have access to dental care?: No Was dental information given to patient?: Patient has dentist HPI 3M Follow Up HPI Details Patient comes in today for her follow up visit States that she is still experiencing frequent back pains but states that her c urrent Rx helps keep them manageable She denies any headaches or dizziness Denies any chest pains, no increased SOB No nausea/vomiting, no abdominal pain No change in bowel habits noted States that she has been breaking out in vesicular lesions on and off over her lower torso for a few months now and would like to know how her tests for herpes virus done a few months ago came out Would also like to know how her other labs were from a few months ago [facility] Medical History (Updated 03/31/24 @ 19:03 by Bala Vasquez MD) Degenerative joint disease of left foot DJD (degenerative joint disease), thoracolumbar Vitamin D deficiency Overweight (BMI 25.0-29.9) Irritable bowel syndrome (IBS) Obesity (BMI 30-39.9) Low back pain Migraine Hives Benign essential hypertension Hernia Scoliosis HTN (hypertension) Fibromyalgia Anemia Surgical History History of hernia surgery Hx of section Family History Maternal Aunt Cancer Social History Household Members: Children Housing: Apartment Are you a primary primary care provider to a significant other at home: No Do you presently have visiting nurse or other home services: No Alcohol intake: never Patient Tobacco Use Status: Never used Tobacco e-Cigarette/Vaping Use: Never Used Second Hand Smoke Exposure: No service: No Current occupational status: disabled Cognitive needs: No Hearing needs: No Vision needs: No Questionnaire PHQ-9 Over the last 2 weeks, how often have you been bothered by any of the following problems? 1. Little interest or pleasure in doing things: not at all 2. Feeling down, depressed, or hopeless: not at all 3. Trouble falling or staying asleep, or sleeping too much: not at all 4. Feeling tired or having little energy: not at all 5. Poor appetite or overeating: not at all 6. Feeling bad about yourself - or that you are a failure or have let yourself or your family down: not at all 7. Trouble concentrating on things, such as reading the newspaper or watching television: not at all 8. Moving or speaking so slowly that other people could have noticed. Or the opposite - being so fidgety or restless that you have been moving around a lot more than usual: not at all 9. Thoughts that you would be better off or of hurting yourself in some way: not at all Total score: 0 Depression Screening Interpretation: Negative Depression Screening Done: Yes 50128 - PHQ-9 Billing: Yes Source: Developed by Drs. Barrera Ruiz, Marlene Goldberg, Mesfin De Anda and colleagues, with an educational yuriy from [employer]. Thrive Questionnaire Date Thrive assessed: 03/27/24 I am a: Patient What is your living situation today?: I have a steady place to live Within the past 12 months, did the food you bought not last and you didn't have the money to get more?: Never true Within the past 12 months, did you worry whether your food would run out before you got money to buy more?: Never true Do you have trouble paying for medicines?: No Do you have trouble getting transportation to medical appointments?: No Do you have trouble paying your heating and electricity bill?: No Do you have trouble taking care of your child, family member or friend?: No Do you have trouble with day-to-day activities such as bathing, preparing meals, shopping, managing finances, etc.?: No Are you currently unemployed and looking for a job?: No Are you interested in more education?: No Please select the resources that you would like help with: None Currently or been in a relationship where the following occur: No concerns reported THRIVE Score: 0 AUDIT C Alcohol Use Questionnaire (AUDIT-C) 1. How often do you have a drink containing alcohol?: Never 3. How often do you have six or more drinks on one occasion?: Never Total Score: 0 Score Reviewed/Action Taken: Yes SNOW-7 AMB Questionnaire SNOW-7 Date SNOW - 7 assessed: 03/27/24 Feeling nervous, anxious, or on edge: 0 = Not at all Not being able to stop or control worryin = Not at all Worrying too much about different things: 0 = Not at all Trouble relaxin = Not at all Being so restless that it is hard to sit still: 0 = Not at all Becoming easily annoyed or irritable: 0 = Not at all Feeling afraid as if something awful might happen: 0 = Not at all Total SNOW-7 score (0-4 normal; 5-9 mild; 10-14 moderate; 15-21 severe): 0 Source: Developed by Drs. Barrera Ruiz, Marlene Goldberg, Mesfin De Anda and colleagues, with an educational yuriy from [employer]. Review of Systems Const Denies chills, Reports fatigue, Denies fever(s) and Denies headache(s) ENT Denies dysphagia, Denies dizziness, Denies otalgia, Denies headache(s), Denies neck pain, Denies odynophagia and Denies sore throat Card Denies chest pain, Denies irregular heart rhythm, Denies palpitations and Denies dyspnea Resp Denies chest congestion, Denies cough, Denies dyspnea and Denies wheezing GI Denies abdominal pain, Reports constipation, Denies dysphagia, Denies heartburn, Denies nausea, Denies odynophagia and Denies vomiting Denies hematuria, Denies dysuria and Denies urinary urgency Musc Reports back pain (over the lower back - chronic), Denies arthralgias and Denies neck pain Skin/Breast Details: (+) on and off small vesicular lesions on her left lower torso Neuro Denies dizziness, Denies headache(s) and Denies paresthesias Psych Reports anxiety and Reports depression Endo Reports fatigue and Denies palpitations Matteo/Lymph Denies easy bruising Aller/Immun Denies wheezing Physical exam (Primary Care) Vital Signs: Last Vital Signs Pulse 88 03/27/24 13:18 BP 142/88 H 03/27/24 13:18 Pulse Ox 97 03/27/24 13:18 Oxygen Delivery Method Room Air 03/27/24 13:18 BMI result Body Mass Index 27.0 Tobacco/Smoking Status: Tobacco use Status Tobacco use date assessed 03/27/24 03/27/24 13:27 Patient Tobacco Use Status Never used Tobacco 03/27/24 13:27 e-Cigarette/Vaping Use Never Used 03/27/24 13:27 PHQ-9: PHQ-9 Score PHQ-9: Total score 0 03/31/24 18:46 Depression Screening Interpretation: Negative Thrive Assessment: Date of Thrive Assessment Date Thrive assessed 03/27/24 03/27/24 13:27 Currently or been in a relationship where the following occur: No concerns reported Const General: no acute distress and alert HENMT Ears: TM's normal bilaterally and EAC's normal Throat: Yes posterior oropharynx normal and Yes tonsils normal (no TP congestion) Neck Neck: Yes no lymphadenopathy and Yes supple Thyroid: Thyroid normal Resp Auscultation: clear to auscultation bilaterally, no rales and no wheezes Cardio Rate: regular rate Rhythm: regular rhythm Heart sounds: no murmurs GI Palpation (GI): Soft to palpation and nontender Auscultation: normal bowel sounds General: Yes no CVA tenderness Back/Spine/Pelvis Back: no CVA tenderness Thoracic/Lumbar Spine: thoracic spinal tenderness and lumbar spinal tenderness Skin Rashes: no rashes Extrem General: Yes no clubbing, cyanosis or edema Left lower extremity: foot Details: tenderness and no edema Office Procedures Flu Questionnaire Does the patient have a severe egg allergy?: No Immunizations Fluarix Triv [id number] (PF) 45 mcg (15 mcg x 3)/0.5 mL IM syringe Performing Provider: Bala Vasquez MD [facility] Documented (not given) by: SLOAN Mittal on 03/27/24 13:28 Reason Not Given: Patient Refused Results Reviewed Results Reviewed: Laboratory Tests 10/27/22 10/27/22 09/29/23 02:32 02:47 10:34 WBC 9.5 Hgb 12.0 Hct 36.7 L Plt Count 221 Sodium 141 Potassium 3.7 Creatinine 0.77 Estimated GFR > 60 Random Glucose 129 H Fasting Glucose Calcium 9.8 AST 17 ALT 13 Triglycerides Cholesterol LDL Cholesterol, Calc HDL Cholesterol Vitamin B12 25-OH Vitamin D Total TSH Ur Specific [place] 1.015 >= 1.030 H Urine Protein Negative Negative Urine Glucose (UA) Negative Negative Urine Blood Negative Small (1+) H Urine Nitrite Negative Ur Leukocyte Esterase Negative HSV I IgG Ab HSV II IgG 09/29/23 10:39 WBC 5.5 Hgb 11.1 L Hct 35.5 L Plt Count 220 Sodium 140 Potassium 4.0 Creatinine 0.72 Estimated GFR > 60 Random Glucose Fasting Glucose 105 H Calcium 9.6 AST 15 ALT 10 Triglycerides 53 Cholesterol 156 LDL Cholesterol, Calc 96 HDL Cholesterol 50 Vitamin B12 437 25-OH Vitamin D Total 17.7 L TSH 0.88 Ur Specific [place] Urine Protein Urine Glucose (UA) Urine Blood Urine Nitrite Ur Leukocyte Esterase HSV I IgG Ab 25.40 H HSV II IgG 11.80 H Coding Level of Care Code Est Pt Level 4 (93726) Diagnoses Genital herpes simplex, unspecified site A60.00 Herpes simplex infection site: unspecified Iron deficiency anemia, unspecified iron deficiency anemia type D50.9 Anemia type: iron deficiency Iron deficiency anemia type: unspecified iron deficiency Benign essential hypertension I10 Migraine without status migrainosus, not intractable, unspecified migraine type G43.909 Migraine type: unspecified Status migrainosus presence: without status migrainosus Intractability: not intractable Vitamin D deficiency E55.9 DJD (degenerative joint disease), thoracolumbar M51.35 Osteoarthritis of left foot, unspecified osteoarthritis type M19.072 Osteoarthritis type: unspecified Irritable bowel syndrome, unspecified type K58.9 Irritable bowel syndrome type: unspecified GERD without esophagitis K21.9 Hives L50.9 Anxiety F41.9 Episode of recurrent major depressive disorder, unspecified depression episode severity F33.9 Depression Type: major depressive disorder Major depression recurrence: recurrent Active/Remission status: currently active Major depression episode severity: unspecified Overweight (BMI 25.0-29.9) E66.3 Additional Codes PHQ-9 - 95148 - PHQ-9 Billing: Yes ([id number]) Assessment & Plan Assessment & Plan (1) Genital herpes: Code(s): A60.00 - Herpesviral infection of urogenital system, unspecified Category: Medical Qualifiers: Herpes simplex infection site: unspecified Qualified Code(s): A60.00 - Herpesviral infection of urogenital system, unspecified Plan: She is advised that her tests for herpes virus 1 and 2 both came back positive but she is reminded that these are the IgG tests which indicate remote infection; her IgM tests both came back negative As she has been breaking out repeatedly in vesicular lesions for the past few months, will go ahead and treat her empirically with Valtrex 1000 mg BID x 10 days, then 500 mg QD for chronic suppression (2) Anemia: Code(s): D64.9 - Anemia, unspecified Category: Medical Qualifiers: Anemia type: iron deficiency Iron deficiency anemia type: unspecified iron deficiency Qualified Code(s): D50.9 - Iron deficiency anemia, unspecified Plan: Patient has not been taking her oral Ferrous Sulfate 325 mg QD regularly as it tends to irritate her stomach Her H/H done back in September 2023 were again low at 11.1/35.5 Follow up with hematology as scheduled (3) Benign essential hypertension: Code(s): I10 - Essential (primary) hypertension Category: Medical Plan: Reinforced low sodium diet - goal is systolic BP of 120 mm or less Continue Irbesartan 300 mg QD and Amlodipine 2.5 mg QD (4) Migraine: Code(s): G43.909 - Migraine, unspecified, not intractable, without status migrainosus Category: Medical Qualifiers: Migraine type: unspecified Status migrainosus presence: without status migrainosus Intractability: not intractable Qualified Code(s): G43.909 - Migraine, unspecified, not intractable, without status migrainosus Plan: Stable lately Reinforced avoidance of migraine triggers She used to take Fioricet PRN in the past (5) Vitamin D deficiency: Code(s): E55.9 - Vitamin D deficiency, unspecified Category: Medical Plan: Have advised patient that her Vitamin D level was still low on her labs done back in September 2023 Continue Vitamin D3 2000 units QD (6) DJD (degenerative joint disease), thoracolumbar: Code(s): M51.35 - Other intervertebral disc degeneration, thoracolumbar region Category: Medical Plan: Thoracolumbar spine x-rays done back in September 2023 revealed (+) marked S-shaped thoracolumbar scoliosis with a rotatory component which limits visualization of mid to lower thoracic vertebral bodies on the lateral view. There are moderate multilevel degenerative changes in the thoracic spine and multilevel lumbar spondylosis with [id number] loss of disc space height at L5-S1 Reinforced activity and weight-lifting restrictions Continue Oxycodone-Acetaminophen 5-325 mg 1 to 2 times a day as needed Will consider referring her to pain management if her back pain progresses or gets worse (7) Degenerative joint disease of left foot: Code(s): M19.072 - Primary osteoarthritis, left ankle and foot Category: Medical Qualifiers: Osteoarthritis type: unspecified Qualified Code(s): M19.072 - Primary osteoarthritis, left ankle and foot Plan: Left foot x-rays done back in September 2023 revealed (+) mild degenerative changes in the foot, with a small plantar calcaneal spur Will consider referring her to podiatry for further management if her foot symptoms progress (8) Irritable bowel syndrome (IBS): Code(s): K58.9 - Irritable bowel syndrome, unspecified Category: Medical Qualifiers: Irritable bowel syndrome type: unspecified Qualified Code(s): K58.9 - Irritable bowel syndrome without diarrhea Plan: Continue Dicyclomine 20 mg TID PRN She has been advised that this is most likely the main cause of her intermittent lower abdominal cramping pain and loose stools Follow up with GI as scheduled (9) GERD without esophagitis: Code(s): K21.9 - Gastro-esophageal reflux disease without esophagitis Category: Medical Plan: Dietary restrictions reinforced Continue Omeprazole 20 mg BID and Famotidine 20 mg Q HS PRN (10) Hives: Code(s): L50.9 - Urticaria, unspecified Category: Medical Plan: Patient used to receive Xolair injections from her paralegal assistant once a month but has not gotten her injections in a while now States that this has been stable lately (11) Anxiety: Code(s): F41.9 - Anxiety disorder, unspecified Category: Medical Plan: Continue Lorazepam 1 mg BID PRN (12) Depression: Code(s): F32.A - Depression, unspecified Category: Medical Qualifiers: Depression Type: major depressive disorder Major depression recurrence: recurrent Active/Remission status: currently active Major depression episode severity: unspecified Qualified Code(s): F33.9 - Major depressive disorder, recurrent, unspecified Plan: Patient used to take Escitalopram 10 mg QD but has not had it refilled or taken it in almost 2 years now - thinks that she has been doing okay without it so far (13) Overweight (BMI 25.0-29.9): Code(s): E66.3 - Overweight Category: Medical Plan: Reinforced diet/exercise as tolerated/lose weight Plan Follow up in 3 months Orders: Orders Influenza [id number] Immunization 03/27/24 Z23 - Encounter for immunization Medications: New valacyclovir 1,000 mg PO BID 10 days 20 tabs 0RF A60.00 - Herpesviral infection of urogenital system, unspecified valacyclovir To start AFTER finishing 10 days of Valacyclovir 1000 mg BID 500 mg PO DAILY 30 days 30 tabs 5RF chronic suppression of genital herpes A60.00 - Herpesviral infection of urogenital system, unspecified
== END 2024-03-27 13:42 | disposition home or self-care (01) ==
LOC: HO.HMCH 13:17
PROVIDERS: PCP Internal Medicine; Visit Provider Internal Medicine
DX: A60.00 Herpesviral infection of urogenital system, unspecified (principal); D50.9 Iron deficiency anemia, unspecified; I10 Essential (primary) hypertension; G43.909 Migraine, unspecified, not intractable, without status migrainosus; E55.9 Vitamin D deficiency, unspecified; M51.35 Other intervertebral disc degeneration, thoracolumbar region; M19.072 Primary osteoarthritis, left ankle and foot; K58.9 Irritable bowel syndrome, unspecified; K21.9 Gastro-esophageal reflux disease without esophagitis; L50.9 Urticaria, unspecified; F41.9 Anxiety disorder, unspecified; F33.9 Major depressive disorder, recurrent, unspecified; E66.3 Overweight

== ENCOUNTER → 2024-03-27 13:17 | Outpatient (BNVA) | payer OTHER, SELFPAY | PROVIDERS: PCP Internal Medicine; Visit Provider Internal Medicine | DX: A60.00 Herpesviral infection of urogenital system, unspecified (principal); D50.9 Iron deficiency anemia, unspecified; I10 Essential (primary) hypertension; G43.909 Migraine, unspecified, not intractable, without status migrainosus; E55.9 Vitamin D deficiency, unspecified; M19.072 Primary osteoarthritis, left ankle and foot; K58.9 Irritable bowel syndrome, unspecified; K21.9 Gastro-esophageal reflux disease without esophagitis; L50.9 Urticaria, unspecified; F41.9 Anxiety disorder, unspecified; F33.9 Major depressive disorder, recurrent, unspecified; E66.3 Overweight | CPT/HCPCS: 90471; 96127; 99212 ==

== ENCOUNTER 2024-04-21 04:12 | Emergency (ER) | payer OTHER, SELFPAY ==
--- NOTE | 2024-04-21 04:19 | ECG_ITS ---
Test Reason : ABD PAIN Blood Pressure : / mmHG Vent. Rate : 073 BPM Atrial Rate : 073 BPM P-R Int : 142 ms QRS Dur : 084 ms QT Int : 374 ms P-R-T Axes : 053 033 010 degrees QTc Int : 412 ms Normal sinus rhythm Normal ECG When compared with ECG of 15-APR-2019 14:51, No significant change was found Referred By: Generic ED Physician Electronically Signed By:JESSICA ABBOTT
[2024-04-21 04:20] VITALS: BP 132/88; PULSE 64; O2SAT 100; BMI 27.3
[2024-04-21 04:30] VITALS: BP 134/82; PULSE 71; RESP 12; TEMP 37; O2SAT 100
[2024-04-21 04:41] LABS: MANUAL DIFF FLAG NO
[2024-04-21 04:42] LABS: Basophils Percent Auto 0.3 % (0-2); Eosinophils Absolute Auto 0.2 X10*3/uL (0.0-0.4); Eosinophils Percent Auto 2.2 % (0-4); Hematocrit 27.3 % (37.0-47.0); Hemoglobin 8.2 g/dl (12.0-16.0); Imm Gran Abs Auto 0.02 X10*3/uL (0.00-0.03); Imm Gran Pct Auto 0.3 % (0.0-0.4); Lymphocytes Absolute Auto 1.7 X10*3/uL (1.2-4.9); Lymphocytes Percent Auto 23.9 % (20-40); Mean Corpuscular Hemoglobin 21.6 pg (27.0-33.0); Mean Corpuscular Volume 71.8 fL (80.0-98.0); Mean Platelet Volume 10.8 fL (9.4-12.3); Monocytes Absolute Auto 0.4 X10*3/uL (0.1-1.2); Monocytes Percent Auto 5.9 % (2-11); Neutrophils Absolute Auto 4.7 x10*3/uL (2.0-8.3); Neutrophils Percent Auto 67.4 % (45-73); Platelet Count 225 X10*3/uL (160-400); Red Cell Distribution Width 15.9 % (11.0-16.0); White Blood Count 6.9 X10*3/uL (4.8-10.8)
[2024-04-21 04:58] LABS: Appearance Urine Clear; Color Urine Yellow; Glucose Urine UA Negative (Negative); Leukocyte Esterase Urine Negative (Negative); Nitrite Urine Negative (Negative); Urine Blood Negative (Negative); Urine Ketones Trace mg/dL (Negative); Urine Protein Negative (Neg-Trace)
[2024-04-21 05:03] LABS: Alanine Aminotransferase 14 U/L (0-31); Albumin Level 3.9 g/dL (3.5-5.0); Alkaline Phosphatase 44 U/L (39-117); Anion Gap 12 (12-20); Aspartate Amino Transferase 17 U/L (5-31); Bilirubin Total 0.2 mg/dL (0.0-1.0); Blood Urea Nitrogen 14 mg/dL (9-16); Calcium 9.1 mg/dL (8.4-10.2); Carbon Dioxide 19 mmol/L (22-29); Chloride 112 mmol/L (96-108); Creatinine Clr Calc Pharmacy 99.5; Estimated Glomerular Filt Rate > 60; Glucose Random 123 mg/dL (60-115); Potassium 3.6 mmol/L (3.3-5.1); Sodium 139 mmol/L (135-145); Total Protein 6.6 g/dL (6.5-8.0)
[2024-04-21 05:07] LABS: Amphetamine Screen Urine Not Detected (Not Detect); Barbiturates, Urine Not Detected (Not Detect); Benzodiazepines Screen Urine Not Detected (Not Detect); Buprenorphine Scr Positive (Not Detect); Cannabinoid Screen Urine Not Detected (Not Detect); Cocaine Screen Urine Not Detected (Not Detect); Fentanyl, urine Not Detected (Not Detect); Methadone Screen, Urine Not Detected (Not Detect); Opiate Screen Urine Not Detected (Not Detect); Oxycodone Screen Urine Not Detected (Not Detect); Phencyclidine Screen Urine Not Detected (Not Detect)
[2024-04-21 06:34] VITALS: BP 134/71; PULSE 70; RESP 16; TEMP 36.8; O2SAT 97
--- NOTE | 2024-04-21 07:24 | ED.ANXIETY ---
HPI - Anxiety General Chief Complaint: Anxiety Stated Complaint: sob Anxiety Time Seen by Provider: 04/21/24 06:54 Source: patient and old records reviewed Mode of arrival: ambulatory Limitations: no limitations History of Present Illness ED Provider: MILTON HPI narrative: 49 yo female with PMH of HTN, anxiety, GERD here with c/o having anxiety and panic last night before bed. She reports no SI/HI and states she feels much better after sleeping. No concerns for safety at home. This has been happening over the past few days. She feels better but has a hard time at night. She did take ativan [employer]. She does not want to talk to crisis MD complaint: anxiety Onset (ago): day(s) (3) Symptoms: dyspnea, dry mouth and sense of impending doom Severity: moderate Quality: intermittent Place: home History of similar episodes: Yes Provoking factors: none known Relieving factors: medication Exacerbating factors: nothing Associated symptoms: other Related Data Previous Rx's ?Medication ?Instructions ?Recorded ondansetron 4 mg disintegrating 4 mg PO Q6H PRN nausea and 10/27/22 tablet vomiting #14 tabs bismuth subsalicylate 262 mg 2 tab PO QID 14 days #112 tabs 03/03/23 chewable tablet ascorbic acid (vitamin C) 500 mg 500 mg PO BID #60 tabs 04/03/23 tablet famotidine 20 mg tablet (Pepcid) 20 mg PO BEDTIME #30 tabs 05/16/23 BLD PRESSURE MONITOR CUFF #1 ea 05/18/23 ferrous sulfate 325 mg (65 mg 325 mg PO DAILY #30 tabs 06/21/23 iron) tablet omeprazole 20 mg capsule,delayed 20 mg PO BID 30 days #60 caps 09/03/23 release cholecalciferol (vitamin D3) 50 50 mcg PO DAILY #90 caps 02/20/24 mcg (2,000 unit) capsule irbesartan 300 mg tablet 300 mg PO DAILY 90 days #90 tabs 03/23/24 valacyclovir 1 gram tablet 1,000 mg PO BID 10 days #20 tabs 03/27/24 valacyclovir 500 mg tablet 500 mg PO DAILY chronic 03/27/24 suppression of genital herpes 30 days #30 tabs lorazepam 1 mg tablet 1 mg PO BID PRN anxiety 30 days 04/12/24 #60 tabs oxycodone-acetaminophen 5 mg-325 1 tab PO .1 to 2 times a day PRN 04/12/24 mg tablet pain 28 days #56 tabs amlodipine 2.5 mg tablet 2.5 mg PO DAILY 90 days #90 tabs 04/14/24 hydroxyzine HCl 25 mg tablet 25 mg PO BID PRN anxiety #20 tabs 04/21/24 Allergies Allergy/AdvReac Type Severity Reaction Status Date / Time nut - unspecified [NUTS] Allergy Severe HIVES, Verified 04/21/24 04:31 ANAPHYLAXIS Review of Systems Review of Systems: Constitutional : No Fever, No Chills ENT/Mouth : No Ear Pain, No Nasal Congestion, No sore throat Eyes: No Eye Pain, No Swelling, No Redness Cardiovascular : No Chest Pain, pos SOB Respiratory : No Cough, No Sputum, No Dyspnea Gastrointestinal : No Nausea, No Vomiting, No Diarrhea, No Hematochezia, No Melena Genitourinary : No Dysuria, No Urinary Frequency, No Hematuria Musculoskeletal : No Myalgias Skin : No Skin Lesions, No rash Neuro : No Weakness, No Numbness, No Paresthesias, No Dizziness, No Headache Psych : positive Anxiety, no Depression, no SI/HI Heme/Lymph: No Lymphadenopathy Endocrine : No Polyuria, No Polydipsia All other systems reviewed and are negative [facility] Past Medical History Attestation statement: The following information was validated with the patient. Source: old records reviewed Medical History Degenerative joint disease of left foot DJD (degenerative joint disease), thoracolumbar Vitamin D deficiency Overweight (BMI 25.0-29.9) Irritable bowel syndrome (IBS) Obesity (BMI 30-39.9) Low back pain Migraine Hives Benign essential hypertension Hernia Scoliosis HTN (hypertension) Fibromyalgia Anemia Surgical History History of hernia surgery Hx of section Family History Family History Maternal Aunt Cancer Social History Social History Household Members: Children Housing: Apartment Are you a primary pet care attendant to a significant other at home: No Do you presently have visiting nurse or other home services: No Alcohol intake: never Patient Tobacco Use Status: Never used Tobacco Smoked in Last 30 Days: No e-Cigarette/Vaping Use: Never Used Second Hand Smoke Exposure: No Use of substances other than those prescribed or required for medical reasons: No Advance Directives: No Advance Directives Information Provided: Yes Do you have a plan to hurt others: No Plan Patient : No service: No Current occupational status: disabled Cognitive needs: No Hearing needs: No Vision needs: No Physical Exam Vital Signs: Vital Signs: Last Vital Signs Temp 98.2 F 04/21/24 07:45 Pulse 70 04/21/24 07:45 Resp 16 04/21/24 07:45 BP 134/71 04/21/24 07:45 Pulse Ox 97 04/21/24 07:45 O2 Del Method Room Air 04/21/24 07:45 BMI result Body Mass Index 27.3 Appearance: Alert. Oriented X3. No acute distress. Eyes: Pupils equal, round and reactive to light. ENT: Pharynx normal. Neck: Normal inspection. Neck supple. CVS: Normal heart rate and rhythm. Pulses normal. faint systolic murmur R upper chest Respiratory: No respiratory distress. Breath sounds normal. Abdomen: Soft and nontender. Skin: Skin warm and dry. pale skin color. Normal skin turgor. Extremities: No lower extremity edema. No calf ttp Neuro: Oriented X 3. No motor deficit. No sensory deficit. Medical Decision Making Medical Decision Making [facility] Narrative: 49 yo female with PMH of HTN, anxiety, GERD here with c/o resolved anxiety but having bouts before bedtime - she denies SI/HI reports she is safe does not want to talk to crisis. Slept here for hours and now wants to go home - she has no concerning complaints has Fe at home to take. No leg swelling and lungs CTAB - has murmur on my exam but no signs of overload or ACS symptoms - at this time refer for outpatient ECHO Differential Diagnosis Differential Diagnoses: The differential diagnosis associated with the presentation includes anxiety, anema Admission/Observation Consideration of admission/observation: Escalation of care including admission/observation considered work up at baseline Lab Data [facility] Lab Attestation statement: I reviewed the patient's lab results. 04/21/24 04:37 04/21/24 04:37 Labs: Lab Results 04/21/24 04/21/24 Range/Units 04:37 04:52 WBC 6.9 (4.8-10.8) X10*3/uL RBC 3.80 L (4.20-5.50) X10*6/uL Hgb 8.2 L D (12.0-16.0) g/dl Hct 27.3 L D (37.0-47.0) % MCV 71.8 L (80.0-98.0) fL MCH 21.6 L (27.0-33.0) pg MCHC 30.0 L (31.0-35.0) g/dl RDW 15.9 (11.0-16.0) % Plt Count 225 (160-400) X10*3/uL MPV 10.8 (9.4-12.3) fL Immature Gran % (Auto) 0.3 (0.0-0.4) % Neut % (Auto) 67.4 (45-73) % Lymph % (Auto) 23.9 (20-40) % [place] % (Auto) 5.9 (2-11) % Eos % (Auto) 2.2 (0-4) % Baso % (Auto) 0.3 (0-2) % Lymph # (Auto) 1.7 (1.2-4.9) X10*3/uL [place] # (Auto) 0.4 (0.1-1.2) X10*3/uL Eos # (Auto) 0.2 (0.0-0.4) X10*3/uL Baso # (Auto) 0.0 (0.0-0.2) X10*3/uL Abs Immat Gran (auto) 0.02 (0.00-0.03) X10*3/uL Absolute Neuts (auto) 4.7 (2.0-8.3) x10*3/uL Absolute Nucleated RBC 0.000 (0.0-0.012) X10*3/uL Nucleated RBC % (auto) 0.0 (0.0-0.2) /100WBC Sodium 139 (135-145) mmol/L Potassium 3.6 (3.3-5.1) mmol/L Chloride 112 H (96-108) mmol/L Carbon Dioxide 19 L (22-29) mmol/L Anion Gap 12 (12-20) BUN 14 (9-16) mg/dL Creatinine 0.80 (0.5-1.4) mg/dL Estim Creat Clear Calc 99.5 Estimated GFR > 60 Random Glucose 123 H (60-115) mg/dL Calcium 9.1 (8.4-10.2) mg/dL Total Bilirubin 0.2 (0.0-1.0) mg/dL AST 17 (5-31) U/L ALT 14 (0-31) U/L Alkaline Phosphatase 44 (39-117) U/L Total Protein 6.6 (6.5-8.0) g/dL Albumin 3.9 (3.5-5.0) g/dL Urine Color Yellow Urine Appearance Clear Urine pH 7.0 (5.0-9.0) Ur Specific [place] 1.020 (1.005-1.025) Urine Protein Negative (Neg-Trace) mg/dL Urine Glucose (UA) Negative (Negative) mg/dL Urine Ketones Trace (Negative) mg/dL Urine Blood Negative (Negative) Urine Nitrite Negative (Negative) Ur Leukocyte Esterase Negative (Negative) Urine Opiates Screen Not Detected (Not Detect) Ur Buprenorphine Scrn Positive H (Not Detect) ng/mL Ur Oxycodone Screen Not Detected (Not Detect) ng/mL Urine Methadone Screen Not Detected (Not Detect) ng/mL Urine Fentanyl Screen Not Detected (Not Detect) Ur Barbiturates Screen Not Detected (Not Detect) Ur Phencyclidine Scrn Not Detected (Not Detect) Ur Amphetamines Screen Not Detected (Not Detect) U Benzodiazepines Scrn Not Detected (Not Detect) Urine Cocaine Screen Not Detected (Not Detect) U Marijuana (THC) Screen Not Detected (Not Detect) Independent Interpretation I performed an independent interpretation of an: EKG Interpretation: Rate: 73 Rhythm: NSR [place]: normal Normal P waves. Normal [place]. Normal QRS complex. ST T wave : no ALDO, inverted t wave V1 and III qTC: 375 prior studies: no acute ischemia The study has been interpreted contemporaneously by me. . External Record Review External record reviewed: Outpatient record Prescription Management I considered prescription management with: Other Discharge Plan Discharge Clinical Impression: Anxiety Patient Disposition: Home, Self-Care Instructions: Anxiety (ED) Additional Instructions: you are more anemic please start your iron hemoglobin 8.2 recheck with your doctor in one week I heard a faint murmur on exam today this just needs outpatient ECHO of heart talk to your doctor this week to schedule return for any worsening symptoms, pain, increased dyspnea, swelling or any other concerns. Prescriptions: New hydroxyzine HCl 25 mg tablet 25 mg PO BID PRN (Reason: anxiety) Qty: 20 0RF No Action bismuth subsalicylate 262 mg tablet,chewable 2 tab PO QID 14 Days Qty: 112 0RF ascorbic acid (vitamin C) 500 mg Tablet 500 mg PO BID Qty: 60 6RF famotidine [Pepcid] 20 mg tablet 20 mg PO BEDTIME Qty: 30 3RF (DME) BLD PRESSURE MONITOR CUFF medium See Rx Instructions .Route .MEDSUPPLY Qty: 1 0RF Rx Instructions: Use as directed (medium size) ferrous sulfate 325 mg (65 mg iron) tablet 325 mg PO DAILY Qty: 30 3RF omeprazole 20 mg capsule,delayed release(DR/EC) 20 mg PO BID 30 Days Qty: 60 1RF cholecalciferol (vitamin D3) 50 mcg (2,000 unit) capsule 50 mcg PO DAILY Qty: 90 3RF irbesartan 300 mg tablet 300 mg PO DAILY 90 Days Qty: 90 1RF oxycodone-acetaminophen 5-325 mg tablet 1 tab PO .1 to 2 times a day PRN (Reason: pain) 28 Days Qty: 56 0RF lorazepam 1 mg tablet 1 mg PO BID PRN (Reason: anxiety) 30 Days Qty: 60 0RF amlodipine 2.5 mg tablet 2.5 mg PO DAILY 90 Days Qty: 90 1RF ondansetron 4 mg tablet,disintegrating 4 mg PO Q6H PRN (Reason: nausea and vomiting) Qty: 14 0RF valacyclovir 1 gram tablet 1,000 mg PO BID 10 Days Qty: 20 0RF valacyclovir 500 mg tablet 500 mg PO DAILY 30 Days Qty: 30 5RF Rx Instructions: To start AFTER finishing 10 days of Valacyclovir 1000 mg BID Interventions: ED Discharge Assessment Last Done: 04/21/24 07:45 Discharge Date/Time: 04/21/24 07:47 Print Language: Swazi
[2024-04-21 07:45] VITALS: BP 134/71; PULSE 70; RESP 16; TEMP 36.8; O2SAT 97
== END 2024-04-21 07:47 | disposition home or self-care (01) ==
PROVIDERS: Emergency Provider Emergency Medicine
DX: F41.9 Anxiety disorder, unspecified (principal); F41.0 Panic disorder [episodic paroxysmal anxiety]; R06.02 Shortness of breath; Z51.81 Encounter for therapeutic drug level monitoring; Z79.899 Other long term (current) drug therapy
CPT/HCPCS: 36415; 80053; 80307; 81003; 85025; 93005; 99284; 99285

== ENCOUNTER → 2024-04-21 04:19 | Outpatient (BNV) | payer OTHER, SELFPAY | PROVIDERS: Emergency Provider Emergency Medicine; Visit Provider Internal Medicine | DX: R06.02 Shortness of breath (principal); I10 Essential (primary) hypertension; R10.9 Unspecified abdominal pain | CPT/HCPCS: 93010 ==

== ENCOUNTER 2024-09-24 09:48 | Outpatient (REF) | payer OTHER, SELFPAY ==
[2024-09-24 10:43] LABS: MANUAL DIFF FLAG NO
[2024-09-24 11:30] LABS: Basophils Percent Auto 0.5 % (0-2); Eosinophils Absolute Auto 0.1 X10*3/uL (0.0-0.4); Eosinophils Percent Auto 0.8 % (0-4); Hemoglobin 8.7 g/dl (12.0-16.0); Imm Gran Abs Auto 0.02 X10*3/uL (0.00-0.03); Imm Gran Pct Auto 0.3 % (0.0-0.4); Immature Retic Fraction 16.4 % (3.0-15.9); Lymphocytes Absolute Auto 1.2 X10*3/uL (1.2-4.9); Lymphocytes Percent Auto 17.8 % (20-40); Mean Corpuscular Volume 73.2 fL (80.0-98.0); Mean Platelet Volume 10.8 fL (9.4-12.3); Monocytes Absolute Auto 0.4 X10*3/uL (0.1-1.2); Neutrophils Absolute Auto 4.9 x10*3/uL (2.0-8.3); Neutrophils Percent Auto 74.6 % (45-73); Platelet Count 257 X10*3/uL (160-400); Red Blood Count 3.96 X10*6/uL (4.20-5.50); Red Cell Distribution Width 16.8 % (11.0-16.0); Retic HGB Equivalent 22.5 pg (30.0-35.0); Reticulocyte Percent 1.3 % (0.5-1.8); Reticulocytes Absolute 0.051 X10*6/uL (0.026-0.095); White Blood Count 6.5 X10*3/uL (4.8-10.8)
[2024-09-24 12:35] LABS: Vitamin B12 475 pg/mL (200-900)
[2024-09-24 18:20] LABS: Alanine Aminotransferase 15 U/L (0-31); Albumin Level 4.2 g/dL (3.5-5.0); Alkaline Phosphatase 48 U/L (39-117); Anion Gap 11 (12-20); Aspartate Amino Transferase 20 U/L (5-31); Bilirubin Total 0.4 mg/dL (0.0-1.0); Blood Urea Nitrogen 12 mg/dL (9-16); Carbon Dioxide 25 mmol/L (22-29); Chloride 106 mmol/L (96-108); Cholesterol 172 mg/dL (<200); Estimated Glomerular Filt Rate > 60; Glucose Fasting 108 mg/dL (60-99); HDL Cholesterol 60 mg/dL (>40); Iron 16 mcg/dL (30-160); LDL Cholesterol Calculated 101 mg/dL (<100); Percent Iron Saturation 5 % (15-50); Potassium 4.2 mmol/L (3.3-5.1); Sodium 138 mmol/L (135-145); Total Iron Binding Capacity 353 mcg/dL (228-428); Total Protein 7.3 g/dL (6.5-8.0); Triglycerides 56 mg/dL (<150); Unsaturated Iron Binding 337 ug/dL
[2024-09-24 18:28] LABS: TSH reflex Free T4 1.59 uIU/mL (0.32-4.0); Vitamin D 25-OH Total 15.1 ng/mL (>30)
[2024-09-26 13:13] LABS: Hematocrit 29.4 % (35.0-45.0); Hemoglobin 8.7 g/dL (11.7-15.5); MCH 21.7 pg (27.0-33.0); MCV 73.3 fL (80.0-100.0); RBC 4.01 Million/uL (3.80-5.10); RDW 15.5 % (11.0-15.0)
[2024-09-27 18:43] LABS: Erythropoietin (EPO) 57.4 mIU/mL (2.6-18.5)
== END 2024-09-24 09:49 | disposition home or self-care (01) ==
LOC: HO.LAB 09:48
PROVIDERS: PCP Internal Medicine; Visit Provider Internal Medicine
DX: D50.9 Iron deficiency anemia, unspecified (principal); I10 Essential (primary) hypertension; G43.909 Migraine, unspecified, not intractable, without status migrainosus; R01.1 Cardiac murmur, unspecified; E55.9 Vitamin D deficiency, unspecified; M51.35 Other intervertebral disc degeneration, thoracolumbar region; M19.072 Primary osteoarthritis, left ankle and foot; K58.9 Irritable bowel syndrome, unspecified; K21.9 Gastro-esophageal reflux disease without esophagitis; A60.00 Herpesviral infection of urogenital system, unspecified; L50.9 Urticaria, unspecified; F41.9 Anxiety disorder, unspecified; F33.9 Major depressive disorder, recurrent, unspecified; E66.3 Overweight; E78.00 Pure hypercholesterolemia, unspecified; R71.8 Other abnormality of red blood cells; E53.8 Deficiency of other specified B group vitamins; Z79.891 Long term (current) use of opiate analgesic; Z79.899 Other long term (current) drug therapy
CPT/HCPCS: 36415; 80053; 80061; 82306; 82607; 82668; 82746; 83020; 83540; 84443; 85014; 85018; 85025; 85041; 85045; 96127; 99212

== ENCOUNTER 2024-09-24 09:48 | Outpatient (AMB) | payer OTHER, SELFPAY ==
[2024-09-24 09:50] VITALS: BP 134/82; PULSE 102; O2SAT 98; BMI 27.2
--- NOTE | 2024-09-24 09:50 | A.OFFPC_ITS ---
Vital Signs 09/24/24 09:50 Height 5 ft 9 in Weight 184 lb 6 oz BMI 27.2 BP 134/82 Blood Pressure Location Lt brachial Position Sitting Pulse 102 H Pulse Source Pulse Oximeter Pulse Oximetry (%) 98 Oxygen Delivery Method Room Air Intake Visit Reasons: 3M Follow Up Process Pumper Required: No Accompanied by: Self / Same As Patient Allergies nut - unspecified [NUTS] Allergy (Severe, Verified 09/24/24 10:11) HIVES, ANAPHYLAXIS Medication List - Last Reconciled 09/24/24 by Bala Vasquez MD amlodipine 2.5 mg PO DAILY 90 days ascorbic acid (vitamin C) 500 mg PO BID bismuth subsalicylate 2 tabs PO QID 14 days [BLD PRESSURE MONITOR CUFF Use as directed (medium size)] cholecalciferol (vitamin D3) 50 mcg PO DAILY famotidine (Pepcid) 20 mg PO BEDTIME ferrous sulfate 325 mg PO DAILY hydroxyzine HCl 25 mg PO BID PRN irbesartan 300 mg PO DAILY 90 days lorazepam 1 mg PO BID PRN 30 days omeprazole 20 mg PO BID 30 days ondansetron 4 mg PO Q6H PRN oxycodone-acetaminophen 5-325 mg 1 tab PO .1 to 2 times a day PRN 28 days valacyclovir 1,000 mg PO BID 10 days valacyclovir 500 mg PO DAILY 30 days Tobacco use date assessed: 09/24/24 Dental Screening Dental Screen Date: 09/24/24 Did you have a dental visit in the last 12 months?: No Did you have a dental problem in the last 6 months where you did not have access to dental care?: No Was dental information given to patient?: No HPI 3M Follow Up HPI Details Patient comes in today for her follow up visit Reports that she still feels fatigued often She is also still experiencing frequent anxiety and went to the ER back in April 2024 for increased anxiety and panic attack - thinks that her anxiety is now starting to settle down She denies any headaches or dizziness Denies any exertional chest pains but still reports feeling SOB with exertion at times No nausea/vomiting, still has recurrent abdominal cramping pain often, especially over her lower abdomen No change in bowel habits noted Still has chronic back pain - has significant scoliosis and degenerative thoracolumbar vertebral disease - and needs her pain med Rx refilled today She does not have any follow up labs done recently [facility] Medical History Degenerative joint disease of left foot DJD (degenerative joint disease), thoracolumbar Vitamin D deficiency Overweight (BMI 25.0-29.9) Irritable bowel syndrome (IBS) Obesity (BMI 30-39.9) Low back pain Migraine Hives Benign essential hypertension Hernia Scoliosis HTN (hypertension) Fibromyalgia Anemia Surgical History History of hernia surgery Hx of section Family History Maternal Aunt Cancer Social History Household Members: Children Housing: Apartment Are you a primary animal daycare provider to a significant other at home: No Do you presently have visiting nurse or other home services: No Alcohol intake: never Patient Tobacco Use Status: Never used Tobacco e-Cigarette/Vaping Use: Never Used Second Hand Smoke Exposure: No service: No Current occupational status: disabled Cognitive needs: No Hearing needs: No Vision needs: No Questionnaire PHQ-9 Over the last 2 weeks, how often have you been bothered by any of the following problems? 1. Little interest or pleasure in doing things: not at all 2. Feeling down, depressed, or hopeless: not at all 3. Trouble falling or staying asleep, or sleeping too much: several days 4. Feeling tired or having little energy: nearly every day 5. Poor appetite or overeating: several days 6. Feeling bad about yourself - or that you are a failure or have let yourself or your family down: not at all 7. Trouble concentrating on things, such as reading the newspaper or watching television: not at all 8. Moving or speaking so slowly that other people could have noticed. Or the opposite - being so fidgety or restless that you have been moving around a lot more than usual: not at all 9. Thoughts that you would be better off or of hurting yourself in some way: not at all Total score: 5 Depression Screening Interpretation: Positive Depression Screening Follow-up: Existing condition and Follow-up Visit Requested Depression Screening Done: Yes 89789 - PHQ-9 Billing: Yes Source: Developed by Drs. Barrera Ruiz, Marlene Goldberg, Mesfin De Anda and colleagues, with an educational yuriy from [employer]. Thrive Questionnaire Date Thrive assessed: 09/24/24 I am a: Patient What is your living situation today?: I have a steady place to live Within the past 12 months, did the food you bought not last and you didn't have the money to get more?: Never true Within the past 12 months, did you worry whether your food would run out before you got money to buy more?: Never true Do you have trouble paying for medicines?: No Do you have trouble getting transportation to medical appointments?: I choose not to answer this question Do you have trouble paying your heating and electricity bill?: No Do you have trouble taking care of your child, family member or friend?: No Do you have trouble with day-to-day activities such as bathing, preparing meals, shopping, managing finances, etc.?: I choose not to answer this question Are you currently unemployed and looking for a job?: Yes Are you interested in more education?: No Please select the resources that you would like help with: None Currently or been in a relationship where the following occur: I choose not to answer THRIVE Score: 0 AUDIT C Alcohol Use Questionnaire (AUDIT-C) 1. How often do you have a drink containing alcohol?: Never 3. How often do you have six or more drinks on one occasion?: Never Total Score: 0 Score Reviewed/Action Taken: Yes SNOW-7 AMB Questionnaire SNOW-7 Date SNOW - 7 assessed: 09/24/24 Feeling nervous, anxious, or on edge: 1 = Several days Not being able to stop or control worryin = Several days Worrying too much about different things: 1 = Several days Trouble relaxin = Several days Being so restless that it is hard to sit still: 1 = Several days Becoming easily annoyed or irritable: 1 = Several days Feeling afraid as if something awful might happen: 1 = Several days Total SNOW-7 score (0-4 normal; 5-9 mild; 10-14 moderate; 15-21 severe): 7 Source: Developed by Drs. Barrera Ruiz, Mesfin Chaveznke and colleagues, with an educational yuriy from [employer]. Review of Systems Const Denies chills, Reports fatigue, Denies fever(s) and Denies headache(s) ENT Denies dysphagia, Denies dizziness, Denies otalgia, Denies headache(s), Denies neck pain, Denies odynophagia and Denies sore throat Card Denies chest pain, Denies irregular heart rhythm, Denies palpitations and Reports dyspnea on exertion (at times) Resp Denies chest congestion, Denies cough and Reports dyspnea on exertion (at times) GI Reports abdominal pain (occasional abdominal cramping pain - see HPI), Reports constipation, Denies dysphagia, Denies heartburn, Reports loose stools (occasional), Denies nausea, Denies odynophagia and Denies vomiting Denies hematuria, Denies difficulty voiding, Denies dysuria and Denies urinary urgency Musc Reports back pain (chronic), Denies arthralgias and Denies neck pain Skin/Breast Denies rash Neuro Denies dizziness, Denies headache(s) and Denies paresthesias Psych Reports anxiety and Reports depression Endo Reports fatigue and Denies palpitations Matteo/Lymph Denies easy bruising Physical exam (Primary Care) Vital Signs: Last Vital Signs Pulse 102 H 09/24/24 09:50 BP 134/82 09/24/24 09:50 Pulse Ox 98 09/24/24 09:50 Oxygen Delivery Method Room Air 09/24/24 09:50 BMI result Body Mass Index 27.2 Tobacco/Smoking Status: Tobacco use Status Tobacco use date assessed 09/24/24 09/24/24 09:55 Patient Tobacco Use Status Never used Tobacco 09/24/24 09:55 e-Cigarette/Vaping Use Never Used 09/24/24 09:55 PHQ-9: PHQ-9 Score PHQ-9: Total score 5 09/24/24 09:55 Depression Screening Interpretation: Positive Depression Screening Follow-up: Existing condition and Follow-up Visit Requested Thrive Assessment: Date of Thrive Assessment Date Thrive assessed 09/24/24 09/24/24 09:55 Currently or been in a relationship where the following occur: I choose not to answer Const General: no acute distress and alert HENMT Ears: TM's normal bilaterally and EAC's normal Throat: Yes posterior oropharynx normal and Yes tonsils normal (no TP congestion) Neck Neck: Yes supple and No lymphadenopathy Thyroid: Thyroid normal Resp Auscultation: clear to auscultation bilaterally, no rales and no wheezes Cardio Rate: regular rate Rhythm: regular rhythm Heart sounds: Murmur heart sound present systolic soft and II/ ( flow murmur ) GI Palpation (GI): Soft to palpation and nontender Auscultation: normal bowel sounds General: Yes no CVA tenderness Back/Spine/Pelvis Back: no CVA tenderness Thoracic/Lumbar Spine: Thoracic/lumbar scoliosis, thoracic spinal tenderness and lumbar spinal tenderness Skin Rashes: no rashes Extrem General: Yes no clubbing, cyanosis or edema Left lower extremity: foot Details: tenderness Location: of the dorsal foot and of the calcaneus and no edema Coding Level of Care Code Est Pt Level 4 (35029) Diagnoses Iron deficiency anemia, unspecified iron deficiency anemia type D50.9 Anemia type: iron deficiency Iron deficiency anemia type: unspecified iron deficiency Benign essential hypertension I10 Migraine without status migrainosus, not intractable, unspecified migraine type G43.909 Migraine type: unspecified Status migrainosus presence: without status migrainosus Intractability: not intractable Cardiac murmur R01.1 Vitamin D deficiency E55.9 DJD (degenerative joint disease), thoracolumbar M51.35 Osteoarthritis of left foot, unspecified osteoarthritis type M19.072 Osteoarthritis type: unspecified Irritable bowel syndrome, unspecified type K58.9 Irritable bowel syndrome type: unspecified GERD without esophagitis K21.9 Genital herpes simplex, unspecified site A60.00 Herpes simplex infection site: unspecified Hives L50.9 Anxiety F41.9 Episode of recurrent major depressive disorder, unspecified depression episode severity F33.9 Depression Type: major depressive disorder Major depression recurrence: recurrent Active/Remission status: currently active Major depression episode severity: unspecified Overweight (BMI 25.0-29.9) E66.3 Additional Codes PHQ-9 - 36461 - PHQ-9 Billing: Yes ([id number]) Assessment & Plan Assessment & Plan (1) Anemia: Code(s): D64.9 - Anemia, unspecified Category: Medical Qualifiers: Anemia type: iron deficiency Iron deficiency anemia type: unspecified iron deficiency Qualified Code(s): D50.9 - Iron deficiency anemia, unspecified Plan: Patient again admits that she does not take her oral Ferrous Sulfate 325 mg QD regularly as it tends to irritate her stomach Her most recent H/H done back in April 2024 when she presented to the ER with increased anxiety and panic attacks were again very low at 8.2/27.3 Will send patient for follow up labs KOBI today; will include some additional labs for further work up again of her anemia She was also supposed to follow up with hematology regularly but she has not seen them since her last appointment with them in February 2023 (2) Benign essential hypertension: Code(s): I10 - Essential (primary) hypertension Category: Medical Plan: Reinforced low sodium diet - goal is systolic BP of 120 mm or less Continue Irbesartan 300 mg QD and Amlodipine 2.5 mg QD (3) Migraine: Code(s): G43.909 - Migraine, unspecified, not intractable, without status migrainosus Category: Medical Qualifiers: Migraine type: unspecified Status migrainosus presence: without status migrainosus Intractability: not intractable Qualified Code(s): G43.909 - Migraine, unspecified, not intractable, without status migrainosus Plan: Stable lately Reinforced avoidance of migraine triggers She used to take Fioricet PRN in the past but has not needed to take the Rx in a while now (4) Cardiac murmur: Code(s): R01.1 - Cardiac murmur, unspecified Category: Medical Plan: (+) systolic murmur noted on auscultation of her heart today She is advised that this could be a flow murmur due to her anemia and thin body habitus but will go ahead and send her for echocardiogram for further evaluation (5) Vitamin D deficiency: Code(s): E55.9 - Vitamin D deficiency, unspecified Category: Medical Plan: Continue Vitamin D3 2000 units QD Will recheck her Vitamin D level for follow up today (6) DJD (degenerative joint disease), thoracolumbar: Code(s): M51.35 - Other intervertebral disc degeneration, thoracolumbar region Category: Medical Plan: Thoracolumbar spine x-rays done back in September 2023 revealed (+) marked S-shaped thoracolumbar scoliosis with a rotatory component which limits visualization of mid to lower thoracic vertebral bodies on the lateral view. There are moderate multilevel degenerative changes in the thora cic spine and multilevel lumbar spondylosis with [id number] loss of disc space height at L5-S1 Reinforced activity and weight-lifting restrictions Continue Oxycodone-Acetaminophen 5-325 mg 1 to 2 times a day as needed - Rx refilled Will consider referring her to pain management if her back pain progresses or gets worse (7) Degenerative joint disease of left foot: Code(s): M19.072 - Primary osteoarthritis, left ankle and foot Category: Medical Qualifiers: Osteoarthritis type: unspecified Qualified Code(s): M19.072 - Primary osteoarthritis, left ankle and foot Plan: Left foot x-rays done back in September 2023 revealed (+) mild degenerative changes in the foot, with a small plantar calcaneal spur Will consider referring her to podiatry for further management if her foot symptoms persist or progress (8) Irritable bowel syndrome (IBS): Code(s): K58.9 - Irritable bowel syndrome, unspecified Category: Medical Qualifiers: Irritable bowel syndrome type: unspecified Qualified Code(s): K58.9 - Irritable bowel syndrome without diarrhea Plan: Continue Dicyclomine 20 mg TID PRN She has been advised that this is most likely the main cause of her intermittent lower abdominal cramping pain and loose stools She was seen by GI a while back but has not followed up with them since She is now requesting for a referral to go back to GI and she requested to see Liliana Rojas again, who last saw her in 2022 - referral placed (9) GERD without esophagitis: Code(s): K21.9 - Gastro-esophageal reflux disease without esophagitis Category: Medical Plan: Dietary restrictions reinforced Continue Omeprazole 20 mg BID and Famotidine 20 mg Q HS PRN (10) Genital herpes: Code(s): A60.00 - Herpesviral infection of urogenital system, unspecified Category: Medical Qualifiers: Herpes simplex infection site: unspecified Qualified Code(s): A60.00 - Herpesviral infection of urogenital system, unspecified Plan: Patient's tests for herpes virus 1 and 2 both came back positive in September 2023 but she is again reminded that these are the IgG tests which indicate remote i nfection; her IgM tests both came back negative She is currently on Valacyclovir 500 mg QD for chronic suppressive Tx (11) Hives: Code(s): L50.9 - Urticaria, unspecified Category: Medical Plan: Patient used to receive Xolair injections from her cardiovascular surgical tech once a month but has not gotten her injections in a while now States that this has been stable lately (12) Anxiety: Code(s): F41.9 - Anxiety disorder, unspecified Category: Medical Plan: Continue Lorazepam 1 mg BID PRN (13) Depression: Code(s): F32.A - Depression, unspecified Category: Medical Qualifiers: Depression Type: major depressive disorder Major depression recurrence: recurrent Active/Remission status: currently active Major depression episode severity: unspecified Qualified Code(s): F33.9 - Major depressive disorder, recurrent, unspecified Plan: Patient used to take Escitalopram 10 mg QD but has not had it refilled or taken it in almost 2 years now - thinks that she has been doing okay without it so far although she did go to the ER back in April 2024 for increased anxiety and panic attack and if she continues to experience frequent flare ups of her anxiety, should consider going back on some maintenance Rx (14) Overweight (BMI 25.0-29.9): Code(s): E66.3 - Overweight Category: Medical Plan: Reinforced diet/exercise as tolerated/lose weight Plan Follow up in 3 months Orders: Orders Complete Blood Count Auto Diff Today D64.9 - Anemia, unspecified Lipid Panel Today E78.00 - Pure hypercholesterolemia, unspecified Reticulocyte Count Today D64.9 - Anemia, unspecified Hemoglobin Electrophoresis Today R71.8 - Other abnormality of red blood cells CA echo transthoracic complete Today R01.1 - Cardiac murmur, unspecified Comprehensive [place]. Panel Fast Today E78.00 - Pure hypercholesterolemia, unspecified IRON PROFILE Today D50.9 - Iron deficiency anemia, unspecified Erythropoietin (EPO) Today D64.9 - Anemia, unspecified TSH reflex Free T4 Today E78.00 - Pure hypercholesterolemia, unspecified UA CC w/rflx Micro + Cult Today R30.0 - Dysuria Vitamin B12 and Folate Today E53.8 - Deficiency of other specified B group vitamins Vitamin D 25-OH Total Today E55.9 - Vitamin D deficiency, unspecified Referrals Gastroenterology Referral K58.9 - Irritable bowel syndrome, unspecified, R10.9 - Unspecified abdominal pain Medications: Refilled oxycodone-acetaminophen 5-325 mg 1 tab PO .1 to 2 times a day 28 days PRN 56 tabs 0RF pain
== END 2024-09-24 10:22 | disposition home or self-care (01) ==
LOC: HO.HMCH 09:49
PROVIDERS: PCP Internal Medicine; Visit Provider Internal Medicine
DX: D50.9 Iron deficiency anemia, unspecified (principal); I10 Essential (primary) hypertension; G43.909 Migraine, unspecified, not intractable, without status migrainosus; R01.1 Cardiac murmur, unspecified; E55.9 Vitamin D deficiency, unspecified; M51.35 Other intervertebral disc degeneration, thoracolumbar region; M19.072 Primary osteoarthritis, left ankle and foot; K58.9 Irritable bowel syndrome, unspecified; K21.9 Gastro-esophageal reflux disease without esophagitis; A60.00 Herpesviral infection of urogenital system, unspecified; L50.9 Urticaria, unspecified; F41.9 Anxiety disorder, unspecified; F33.9 Major depressive disorder, recurrent, unspecified; E66.3 Overweight

== ENCOUNTER 2024-09-27 11:09 | Outpatient (REF) | payer OTHER, SELFPAY ==
[2024-09-28 10:19] LABS: H Pylori Breath Test Positive (Negative)
== END 2024-09-27 11:10 | disposition home or self-care (01) ==
LOC: HO.LNP 11:09
PROVIDERS: PCP Internal Medicine; Visit Provider Nurse Practitioner Family
DX: K21.9 Gastro-esophageal reflux disease without esophagitis (principal); D50.9 Iron deficiency anemia, unspecified; E55.9 Vitamin D deficiency, unspecified; Z12.11 Encounter for screening for malignant neoplasm of colon; K58.9 Irritable bowel syndrome, unspecified
CPT/HCPCS: 83013; 99212

== ENCOUNTER 2024-09-27 11:09 | Outpatient (AMB) | payer OTHER, SELFPAY ==
--- NOTE | 2024-09-27 11:10 | MHC.OFFVIS ---
Vital Signs 09/27/24 11:11 Height 5 ft 9 in Weight 185 lb BMI 27.3 BP 140/80 H Blood Pressure Location Rt brachial Position Sitting Pulse 94 Pulse Source Pulse Oximeter Pulse Oximetry (%) 99 Oxygen Delivery Method Room Air Intake Visit Reasons: CL add on. IBS + Abd pain mgmt. Re-est. Intake Note: ESTABLISHED PATIENT for mgmt of IBS w/ chronic abd pain. 01/2023 CC; CO epigastric pain, occasional burning, dysphagia (multiple episodes, rice involved). Pt also reports having loose stools and urgency intermittently. Pt denies any evidence of hemorrhoids. No additional sx or concerns at this time. Pt does acknowledge that she has hx of chronic anxiety which may have an effect on it. Longitudinal Float Operator Required: No Accompanied by: Self / Same As Patient Allergies nut - unspecified [NUTS] Allergy (Severe, Verified 09/27/24 11:16) HIVES, ANAPHYLAXIS HPI HPI CL add on. IBS + Abd pain mgmt. Re-est.: Details: LAST VISIT 02/13/2023 Colon cancer screening We will deferred sending patient for colonoscopy until patient has her surgery. Patient denies melena, hematochezia, unintentional weight loss or ribbon like stools. Patient has a history of anemia, however her H&H was normal in October of this year. Irritable bowel syndrome (IBS) Occasional postprandial abdominal bloating that currently has been under better control. Patient reports that she has been trying to eat better. Low FODMAP diet discussed with patient. List of food recommended as were her food to avoid given to patient. Will check transglutaminase, vitamin-D level,, A1c level GERD (gastroesophageal reflux disease) Patient can continue taking omeprazole. Will test for H pylori and treat empirically positive. Patient will be sent for upper endoscopy. Patient can also take famotidine at bedtime on a as needed basis. Discussed with patient avoiding dietary triggers in late night snacking. Staying upright for minimum 3 hours after meals discussed with patient. I will see her in 2 months, sooner on as needed basis. Patient is agreeable to this plan and verbalizes understanding of instructions. She was given the opportunity to ask questions and all questions answered. ? Thank you for allowing me to participate in her care Plan Orders Orders H pylori Ag Stool Today K21.9 Vitamin D 25-OH (D2 and D3) Today E55.9 Transglutaminase Ab IgG Today R10.9 Transglutaminase IgA Today R10.9 Hemoglobin A1c Today E11.9 Medications New famotidine (Pepcid) 20 mg PO BEDTIME 30 tabs 3RF K21.9 TODAY'S VISIT: Patient is here today for requested visit. Patient was seen in January of 2023 and was supposed to go for colonoscopy and upper endoscopy. Patient was going for umbilical hernia repair shortly after that visit. Patient reports that somehow she lost track and got busy and unable to follow-up sooner. Patient reports that she used to go to see Dr. Lewis for her anemia. Currently she is not taking iron. Her last H/H was 8.7/29.4. Patient reports that she has been feeling tired lately. Patient reports that she is taking care of her autistic son and she states that he is lot of work then she kind of forgot to take care of herself. Reports epigastric pain and trouble swallowing specially food like rice. Patient reports reflux and epigastric pain and bloating postprandially. After last visit patient was treated for H pylori with quadruple therapy and reports that she did complete the treatment. Was taking omeprazole in famotidine, however she stopped several months ago. Patient reports that she is no longer taking vitamin B12 for vitamin-D or iron. Patient reports that she forgets to take it. Patient reports that she is moving her bowels, however she reports that occasionally she will be constipated. Patient also reports occasional postprandial loose stools. Denies melena, hematochezia, unintentional weight loss or ribbon like stools. Reports dyspepsia and dysphagia without odynophagia. [facility] Medical History Degenerative joint disease of left foot DJD (degenerative joint disease), thoracolumbar Vitamin D deficiency Overweight (BMI 25.0-29.9) Irritable bowel syndrome (IBS) Obesity (BMI 30-39.9) Low back pain Migraine Hives Benign essential hypertension Hernia Scoliosis HTN (hypertension) Fibromyalgia Anemia Surgical History History of hernia surgery Hx of section Family History Maternal Aunt Cancer Social History Household Members: Children Housing: Apartment Are you a primary hemodialysis patient care specialist to a significant other at home: No Do you presently have visiting nurse or other home services: No Alcohol intake: never Patient Tobacco Use Status: Never used Tobacco e-Cigarette/Vaping Use: Never Used Second Hand Smoke Exposure: No service: No Current occupational status: disabled Cognitive needs: No Hearing needs: No Vision needs: No Physical Exam Vital Signs: Last Vital Signs Pulse 94 09/27/24 11:11 BP 140/80 H 09/27/24 11:11 Pulse Ox 99 09/27/24 11:11 Oxygen Delivery Method Room Air 09/27/24 11:11 BMI result Body Mass Index 27.3 Results Reviewed Results Reviewed: Laboratory Tests 02/13/23 03/01/23 09/29/23 11:12 11:10 10:39 Hemoglobin A1c % 5.2 25-OH Vitamin D Total 17 L 17.7 L Stool H. pylori Ag SEE NOTE A Tiss Transglutamin IgG <1.0 Tiss Transglutamin IgA <1.0 09/24/24 10:42 Hemoglobin A1c % 25-OH Vitamin D Total 15.1 L Stool H. pylori Ag Tiss Transglutamin IgG Tiss Transglutamin IgA Assessment & Plan Assessment & Plan (1) Anemia: Code(s): D64.9 - Anemia, unspecified Category: Medical Qualifiers: Anemia type: iron deficiency Iron deficiency anemia type: unspecified iron deficiency Qualified Code(s): D50.9 - Iron deficiency anemia, unspecified (2) Vitamin D deficiency: Code(s): E55.9 - Vitamin D deficiency, unspecified Category: Medical (3) GERD without esophagitis: Code(s): K21.9 - Gastro-esophageal reflux disease without esophagitis Category: Medical (4) Colon cancer screening: Code(s): Z12.11 - Encounter for screening for malignant neoplasm of colon Category: Medical (5) Irritable bowel syndrome (IBS): Code(s): K58.9 - Irritable bowel syndrome, unspecified Category: Medical Qualifiers: Irritable bowel syndrome type: unspecified Qualified Code(s): K58.9 - Irritable bowel syndrome without diarrhea (6) GERD (gastroesophageal reflux disease): Code(s): K21.9 - Gastro-esophageal reflux disease without esophagitis Qualifiers: Esophagitis presence: esophagitis presence not specified Qualified Code(s): K21.9 - Gastro-esophageal reflux disease without esophagitis Plan H pylori in the office today if positive will treat empirically. Patient will also go for upper GI with barium swallow. She will start taking pantoprazole in the morning. Patient will need to take vitamin-D, script for iron supplement also renewed. Patient will try to put her medication somewhere where she will remember to take it daily. Patient will be referred back to Dr. Lewis. Patient was supposed to get iron infusion in the past. She will take stool softeners if she will have trouble moving her bowels, however patient was encouraged to get Benefiber dual action with pre and probiotics to help her bulk stools. Increase fluid intake and activity to promote better bowel motility. Patient will be sent for upper endoscopy and colonoscopy, however we will see her in 2-3 months to discuss the prep and procedure. However message was sent to surgical schedulers to schedule procedure for patient. She is agreeable to this plan and verbalizes understanding of instructions. She was given the opportunity to ask questions and all questions answered. Thank you for allowing me to participate in her care Orders: Orders H Pylori Breath Test Today K21.9 - Gastro-esophageal reflux disease without esophagitis FL upper GI w Ba Swallow Today K21.9 - Gastro-esophageal reflux disease without esophagitis Referrals Hematology & Oncology Referral D50.9 - Iron deficiency anemia, unspecified Medications: New pantoprazole take one tablet half an hour before breakfast 40 mg PO DAILY 30 tabs 2RF K21.9 - Gastro-esophageal reflux disease without esophagitis Changed From cholecalciferol (vitamin D3) 50 mcg PO DAILY 90 caps 3RF R79.89 - Other specified abnormal findings of blood chemistry To cholecalciferol (vitamin D3) 100 mcg (2 x 50 mcg (2,000 unit)) PO DAILY 120 caps 3RF R79.89 - Other specified abnormal findings of blood chemistry Refilled ferrous sulfate 325 mg PO DAILY 30 tabs 3RF Discontinued omeprazole Discontinued Reason: Doctor's Order 20 mg PO BID 30 days 60 caps 1RF famotidine (Pepcid) Discontinued Reason: Doctor's Order 20 mg PO BEDTIME 30 tabs 3RF K21.9 - Gastro-esophageal reflux disease without esophagitis Coding Level of Care Code Est Pt Level 4 (32358) Complex EM visit Add On G2211 Diagnoses Iron deficiency anemia, unspecified iron deficiency anemia type D50.9 Anemia type: iron deficiency Iron deficiency anemia type: unspecified iron deficiency Vitamin D deficiency E55.9 GERD without esophagitis K21.9 Colon cancer screening Z12.11 Irritable bowel syndrome, unspecified type K58.9 Irritable bowel syndrome type: unspecified Gastroesophageal reflux disease, unspecified whether esophagitis present K21.9 Esophagitis presence: esophagitis presence not specified Time Spent (min) 50 Comment 35 minutes spent with patient and additional 25 minutes spent reviewing her records
[2024-09-27 11:11] VITALS: BP 140/80; PULSE 94; O2SAT 99; BMI 27.3
== END 2024-09-27 12:04 | disposition home or self-care (01) ==
LOC: HO.HGI 11:10
PROVIDERS: PCP Internal Medicine; Visit Provider Nurse Practitioner Family
DX: D50.9 Iron deficiency anemia, unspecified (principal); E55.9 Vitamin D deficiency, unspecified; K21.9 Gastro-esophageal reflux disease without esophagitis; K58.9 Irritable bowel syndrome, unspecified
CPT/HCPCS: 99214; G2211

== ENCOUNTER 2024-11-06 11:30 | Outpatient (RCR) | payer OTHER, SELFPAY ==
[2024-10-30 14:08] VITALS: BP 139/85; PULSE 79; RESP 16; TEMP 36.4; O2SAT 100
[2024-10-30] MEDS: Ferric Carboxymaltose 750 MG in 0.9 % Sodium Chloride 250 ML 1060 MG IV (14:27)
[2024-11-06 11:07] VITALS: BP 148/71; PULSE 72; RESP 16; TEMP 36.8; O2SAT 97
[2024-11-06] MEDS: Ferric Carboxymaltose 750 MG in 0.9 % Sodium Chloride 250 ML 1060 MG IV (11:42)
== END 2024-11-06 12:04 | disposition home or self-care (01) ==
LOC: HO.INF 11:30
PROVIDERS: Visit Provider Nurse Practitioner Family
DX: D64.9 Anemia, unspecified (principal)
CPT/HCPCS: 96365; J1439

== ENCOUNTER → 2024-11-20 14:02 | Outpatient (REF) | payer OTHER, SELFPAY ==
--- NOTE | 2024-11-20 14:14 | CA_ITS ---
Transthoracic Echocardiogram Patient (Last, First, Middle): Saba Wiseman A Gender: Female Date of : 1975 Age: 49 Procedure Date: 11/20/2024 Procedure Type: Transthoracic Echocardiogram Location: OP Height: 175.26 cm Weight: 83.92 kg BSA: 2.00 m2 Heart Rate: bpm BP: 140 / 80 mmHg Armature Rewinder: SULMA Referring MD: Bala Vasquez MD Architectural Coating Finisher: Douglas Ricketts MD Symptoms: R01.1 - Cardiac murmur, unspecified Study Quality: Fair ECG Rhythm: Sinus Conclusions: - Essentially normal study with trivial aortic regurgitation Findings Left Ventricle Normal left ventricular size, thickness, and systolic function. The visually estimated ejection fraction is between 60-65%. Spectral Doppler is indicative of a normal filling pattern. Right Ventricle Normal right ventricular cavity size and systolic function. Atria Both atria are normal in size. Interatrial shunt cannot be excluded. Aortic Valve The aortic valve structure and function is likely normal. There is no aortic valve stenosis. There is trace (trivial) aortic valve regurgitation. Mitral Valve Normal mitral valve structure and function. There is trace mitral valve regurgitation. There is no mitral valve stenosis. Pulmonic Valve The pulmonic valve is likely normal. Tricuspid Valve There is trace tricuspid valve regurgitation. The right ventricular systolic pressure is 27 mmHg. Normal right atrial pressure. There is no evidence of pulmonary hypertension. Great Vessels All visible segments of the aorta are normal in size. The pulmonary artery was not well visualized. There is no dilatation of the ascending aorta measuring 3.10 cm. Venous The inferior vena cava is normal in size and collapses greater than 50% with inspiration. Pericardium/Pleural There is no evidence of pericardial effusion. Prior Study Comparison No prior study available for comparison. Measurements 2D Linear Measurements IVSd: 0.98 0.6-0.9/0.6-1.0 cm LVIDd: 4.14 3.9-5.3/4.2-5.9 cm LVIDd Index: 2.07 2.4-3.2/2.2-3.1 cm/m2 LVIDs: 2.63 2.0-3.6 cm LVPWd: 0.87 0.7-1.1 cm LA Diam: 3.80 2.7-3.8/3.0-4.0 cm LAIDs Index: 1.90 1.5-2.3 cm/m2 LV Mass: 150.06 67-162/88-224 g LV Mass Index: 75.03 43-95/49-115 g/m2 LVOT Diam: 1.90 3.0+(-)1.3 cm 2D Systolic Function EF 4C: 57.50 >55% EF 2C: 65.80 >55% EF BiP: 61.70 >55% Mitral Valve MV Pk E: 0.96 MV PK A: 0.94 MV Decel Time: 183.00 E/A: 1.00 E'Lateral: 11.20 E'Medial: 7.94 E/E' Med: 12.10 E/E' Lat: 8.60 PHT: 53.00 MVA PHT: 4.15 Decel Wilkinson: 5.26 Aortic Valve AoV Pk Satnam: 1.78 AoV Mn Satnam: 1.16 AoV VTI: 0.36 AoV Pk Grad: 13.00 Aov Mn Grad: 6.00 MAEVE Cont.VTI: 2.17 LVOT LVOT Pk Satnam: 1.27 LVOT Mn Satnam: 0.81 LVOT VTI: 0.28 LVOT Pk Grad: 6.00 LVOT Mn Grad: 3.00 LVOT Diam: 1.90 LVOT Area: 2.84 Diastolic Function MV Pk E: 0.96 MV Pk A: 0.94 E/A: 1.00 E'Medial: 7.94 E/E' Med: 12.10 E' Laterial: 11.20 E/E' Lat: 8.60 Right Ventricle TAPSE (mm): 26.40 TVS' Santam: 14.50 Tricuspid Valve TR Pk Satnam: 2.43 TR Pk Grad: 24.00 RA Press: 3.00 RVSP: 27.00 Great Vessels Aorta Sinus of Valsalva: 3.00 2.0-3.[address] Ridge: 2.46 1.7-3.4 cm Ao Asc: 3.10 2.1-3.4 cm Ao Arch: 2.70 Updated in Other Vendor System with Status of Final Douglas Ricketts MD electronically signed on 11/20/2024 3:41:18 PM with status of Final
== END ==
LOC: HO.CARD 14:02
PROVIDERS: PCP Internal Medicine; Visit Provider Internal Medicine
DX: R01.1 Cardiac murmur, unspecified (principal)
CPT/HCPCS: 93306

== ENCOUNTER → 2024-11-20 14:14 | Outpatient (BNV) | payer OTHER, SELFPAY | PROVIDERS: PCP Internal Medicine; Visit Provider Internal Medicine Cardiovascular Disease | DX: I35.1 Nonrheumatic aortic (valve) insufficiency (principal); R01.1 Cardiac murmur, unspecified | CPT/HCPCS: 93306 ==

== ENCOUNTER 2025-01-09 08:54 | Outpatient (REF) | payer OTHER, SELFPAY ==
--- NOTE | ~2025-01-09 | FL_ITS ---
EXAMINATION: XR GI AIR CONTRAST SERIES with barium swallow CLINICAL INFORMATION: Gastroesophageal reflux disease without esophagitis. COMPARISON: None available. TECHNIQUE: Saltine crackers coated barium was performed in upright view. Subsequently thin barium and effervescent granules were administered in upright view. Patient was laced in supine and prone lying position and images obtained. FINDINGS: Following oral administration of saltine crackers coated with barium paste there is normal oral mastication and propagation bolus from the oral cavity through the pharynx, esophagus into stomach without any evidence of obstruction, narrowing or stricture. On oral administration of thick barium and effervescent granules there is normal propagation bolus through the pharynx, esophagus and stomach. No extrinsic compression or intraluminal filling defects seen. On placing patient supine and prone lying the course, caliber and peristalsis of the stomach, duodenal bulb and duodenal sweep is normal. The mucosal pattern of stomach and duodenum is normal. There is a large gastroesophageal reflux with a small sliding hiatal hernia FLUOROSCOPY TIME: 2 minute 13 seconds DOSE AREA PRODUCT: 1989 uGy-m2 (microgray-meter squared) FL/FL upper GI w Ba Swallow IMPRESSION: Large gastroesophageal reflux without hiatal hernia. Electronically signed by: Roby Lema MD 01/09/2025 01:24 PM EDT
== END 2025-01-09 08:55 | disposition home or self-care (01) ==
LOC: HO.XRAY 08:54
PROVIDERS: PCP Internal Medicine; Visit Provider Nurse Practitioner Family
DX: K21.9 Gastro-esophageal reflux disease without esophagitis (principal)
CPT/HCPCS: 74240

== ENCOUNTER → 2025-01-09 08:56 | Outpatient (BNV) | payer OTHER, SELFPAY | PROVIDERS: PCP Internal Medicine; Visit Provider Radiology Diagnostic Radiology | DX: K21.9 Gastro-esophageal reflux disease without esophagitis (principal) | CPT/HCPCS: 74246 ==

== ENCOUNTER 2025-01-14 14:39 | Outpatient (AMB) | payer OTHER, SELFPAY ==
--- NOTE | 2025-01-14 14:40 | MHC.OFFVIS ---
Vital Signs 01/14/25 14:46 Height 5 ft 9 in Weight 195 lb BMI 28.8 BP 148/76 H Blood Pressure Location Lt brachial Position Sitting Pulse 82 Pulse Source Pulse Oximeter Pulse Oximetry (%) 100 Oxygen Delivery Method Room Air Intake Visit Reasons: GERD + HP mgmt. Review imaging. Intake Note: Est pt for mgmt of GERD + Anemia. Recent HP tx. CC: C.O. persistence of chronic sx per not finishing her abx as instructed. Pt states she could not manage the side effects. Pt still experiencing chronic sx intermittently but not as severe as previous visit. 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 Review imaging.: Details: LAST VISIT: Anemia Vitamin D deficiency GERD without esophagitis Colon cancer screening Irritable bowel syndrome (IBS) GERD (gastroesophageal reflux disease) Plan H pylori in the office today if positive will treat empirically. Patient will also go for upper GI with barium swallow. She will start taking pantoprazole in the morning. Patient will need to take vitamin-D, script for iron supplement also renewed. Patient will try to put her medication somewhere where she will remember to take it daily. Patient will be referred back to Dr. Lewis. Patient was supposed to get iron infusion in the past. She will take stool softeners if she will have trouble moving her bowels, however patient was encouraged to get Benefiber dual action with pre and probiotics to help her bulk stools. Increase fluid intake and activity to promote better bowel motility. Patient will be sent for upper endoscopy and colonoscopy, however we will see her in 2-3 months to discuss the prep and procedure. However message was sent to surgical schedulers to schedule procedure for patient. She is agreeable to this plan and verbalizes understanding of instructions. She was given the opportunity to ask questions and all questions answered. ? Thank you for allowing me to participate in her care Orders H Pylori Breath Test Today K21.9 FL upper GI w Ba Swallow Today K21.9 Referrals Hematology & Oncology Referral D50.9 New pantoprazole take one tablet half an hour before breakfast 40 mg PO DAILY 30 tabs 2RF K21.9 Changed Changed From cholecalciferol (vitamin D3) 50 mcg PO DAILY 90 caps 3RF R79.89 Changed To cholecalciferol (vitamin D3) 100 mcg (2 x 50 mcg (2,000 unit)) PO DAILY 120 caps 3RF R79.89 Refilled ferrous sulfate 325 mg PO DAILY 30 tabs 3RF Discontinued omeprazole Discontinued Reason: Doctor's Order 20 mg PO BID 30 days 60 caps 1RF famotidine (Pepcid) Discontinued Reason: Doctor's Order 20 mg PO BEDTIME 30 tabs 3RF K21.9 TODAY'S VISIT Patient is here today for follow-up. Upper GI series showed significant reflux without hernias. She continues to have epigastric pain and acid reflux. Patient reports nausea without vomiting. Unable to finish antibiotic as she was having severe symptoms. Patient was feeling dizziness, severe nausea and upper abdominal discomfort. Patient took 3 days of the antibiotics and then stopped. Patient reports dyspepsia without dysphagia or odynophagia. Denies melena, hematochezia, unintentional weight loss or ribbon like stools. Patient denies any other GI concerning symptoms. Here today to discuss different treatment. She is due to go for colonoscopy will add endoscopy as well. [facility] Medical History Degenerative joint disease of left foot DJD (degenerative joint disease), thoracolumbar Vitamin D deficiency Overweight (BMI 25.0-29.9) Irritable bowel syndrome (IBS) Obesity (BMI 30-39.9) Low back pain Migraine Hives Benign essential hypertension Hernia Scoliosis HTN (hypertension) Fibromyalgia Anemia Surgical History History of hernia surgery Hx of section Family History Maternal Aunt Cancer Social History Household Members: Children Housing: Apartment Are you a primary health care social worker to a significant other at home: No Do you presently have visiting nurse or other home services: No Alcohol intake: never Patient Tobacco Use Status: Never used Tobacco e-Cigarette/Vaping Use: Never Used Second Hand Smoke Exposure: No Use of substances other than those prescribed or required for medical reasons: No Have you been hit, kicked, punched, or otherwise hurt by someone within the past year? If so, by whom?: No Do you have thoughts of harming others: None Do you have a plan to hurt others: No Plan Do you have the means to hurt others: No Recently lost weight without trying: No Patient : No service: No Current occupational status: disabled Cognitive needs: No Hearing needs: No Vision needs: No Review of Systems Const Denies weight gain and Denies weight loss ENT Reports no additional complaints, Denies dysphagia and Denies odynophagia Card Reports no additional complaints Resp Reports no additional complaints GI Reports abdominal pain (epigastric), Denies belching, Denies melena, Reports bloating, Denies change in bowel habits, Denies dysphagia, Denies excessive flatus, Reports dyspepsia, Reports heartburn, Denies diarrhea, Denies loose stools, Reports nausea, Denies odynophagia and Denies vomiting Reports no additional complaints Musc Reports no additional complaints Neuro Reports no additional complaints Psych Reports no additional complaints Endo Reports no additional complaints Physical Exam Vital Signs: Last Vital Signs Pulse 82 01/14/25 14:46 BP 148/76 H 01/14/25 14:46 Pulse Ox 100 01/14/25 14:46 Oxygen Delivery Method Room Air 01/14/25 14:46 BMI result Body Mass Index 28.8 Const General: healthy appearing, no acute distress and well developed Nutritional Appearance: well nourished Orientation/consciousness: patient oriented x3 HEENT Head: Yes normal to inspection, Yes normocephalic and Yes atraumatic Face and sinus: Yes normal facial exam Mouth: Normal oral and palatal mucosa present Throat: Yes posterior oropharynx normal, Yes tonsils normal and Yes uvula midline Eyes General: appearance normal, both eyes and all related structures Neck Neck: Yes normal visual inspection, Yes full ROM and Yes trachea midline Thyroid: Thyroid normal Resp Effort & Inspection: normal respiratory effort, able to speak in complete sentences, no tracheal deviation and symmetric chest movement Auscultation: clear to auscultation bilaterally Cardio Rate: regular rate Heart sounds: S1 normal heart sound present and S2 normal heart sound present GI Inspection: Yes normal to inspection and No distended Palpation (GI): Soft to palpation, not firm, nontender and No hepatosplenomegaly present Auscultation: normal bowel sounds General: Yes no CVA tenderness Back/Spine/Pelvis Back: no CVA tenderness Skin General skin exam: elasticity normal, turgor normal and dry skin Neuro General: patient oriented x3 Psych Appearance: grossly normal Mental Status: mental status grossly normal Speech and movement: Normal speech and movement present Results Reviewed Results Reviewed: UPPER GI SERIES IMPRESSION: Large gastroesophageal reflux without hiatal hernia. Assessment & Plan Assessment & Plan (1) Anemia: Code(s): D64.9 - Anemia, unspecified Category: Medical Qualifiers: Anemia type: iron deficiency Iron deficiency anemia type: unspecified iron deficiency Qualified Code(s): D50.9 - Iron deficiency anemia, unspecified (2) Vitamin D deficiency: Code(s): E55.9 - Vitamin D deficiency, unspecified Category: Medical (3) GERD without esophagitis: Code(s): K21.9 - Gastro-esophageal reflux disease without esophagitis Category: Medical (4) Colon cancer screening: Code(s): Z12.11 - Encounter for screening for malignant neoplasm of colon Category: Medical (5) Irritable bowel syndrome (IBS): Code(s): K58.9 - Irritable bowel syndrome, unspecified Category: Medical Qualifiers: Irritable bowel syndrome type: unspecified Qualified Code(s): K58.9 - Irritable bowel syndrome without diarrhea (6) Gastroesophageal reflux disease: Code(s): K21.9 - Gastro-esophageal reflux disease without esophagitis Qualifiers: Esophagitis presence: esophagitis presence not specified Qualified Code(s): K21.9 - Gastro-esophageal reflux disease without esophagitis Plan Will change treatment to Talicia. Patient will call us if she will have any issues getting medication approved or taking it. Patient will continue avoiding dietary triggers and late night snacking. Staying upright for minimum 3 hours after meals discussed with patient. Patient will take senna as needed. She will follow-up in our office in 6 weeks for re-evaluation. Patient will call our office when she finishes antibiotics to get PPI to take daily. Patient is agreeable to this plan and verbalizes understanding of instructions. She was given the opportunity to ask questions and all questions answered. Thank you for allowing me to participate in her care Medications: New usqguvmsoa-pikxumajy-olvbsnoto 10-250-12.5 mg (Talicia) must administer with a meal/food 4 caps (4 x 10-250-12.5 mg) PO Q8H 168 ea 0RF 14 days sennosides (Natural Senna Laxative) 17.2 mg (2 x 8.6 mg) PO BEDTIME 60 tabs 3RF constipation K59.00 - Constipation, unspecified Discontinued pantoprazole Discontinued Reason: Doctor's Order 40 mg PO QAM 90 tabs 0RF K21.9 - Gastro-esophageal reflux disease without esophagitis Coding Level of Care Code Est Pt Level 4 (36960) Complex EM visit Add On G2211 Diagnoses Iron deficiency anemia, unspecified iron deficiency anemia type D50.9 Anemia type: iron deficiency Iron deficiency anemia type: unspecified iron deficiency Vitamin D deficiency E55.9 GERD without esophagitis K21.9 Colon cancer screening Z12.11 Irritable bowel syndrome, unspecified type K58.9 Irritable bowel syndrome type: unspecified Gastroesophageal reflux disease, unspecified whether esophagitis present K21.9 Esophagitis presence: esophagitis presence not specified Time Spent (min) 40 Comment 25 minutes spent with patient and additional 15 minutes spent reviewing her records
[2025-01-14 14:46] VITALS: BP 148/76; PULSE 82; O2SAT 100; BMI 28.8
== END 2025-01-14 15:10 | disposition home or self-care (01) ==
LOC: HO.HGI 14:40
PROVIDERS: PCP Internal Medicine; Visit Provider Nurse Practitioner Family
DX: D50.9 Iron deficiency anemia, unspecified (principal); E55.9 Vitamin D deficiency, unspecified; K21.9 Gastro-esophageal reflux disease without esophagitis; K58.9 Irritable bowel syndrome, unspecified
CPT/HCPCS: 99214

== ENCOUNTER → 2025-01-14 14:39 | Outpatient (BNVA) | payer OTHER, SELFPAY | PROVIDERS: PCP Internal Medicine; Visit Provider Nurse Practitioner Family | DX: K21.9 Gastro-esophageal reflux disease without esophagitis (principal); D50.9 Iron deficiency anemia, unspecified; E55.9 Vitamin D deficiency, unspecified; Z12.11 Encounter for screening for malignant neoplasm of colon; K58.9 Irritable bowel syndrome, unspecified | CPT/HCPCS: 99212 ==

== ENCOUNTER 2025-03-10 10:24 | Outpatient (AMB) | payer OTHER, SELFPAY ==
--- NOTE | 2025-03-10 10:38 | A.OFFVIS_ITS ---
Vital Signs 03/10/25 10:51 Height 5 ft 9 in Weight 190 lb BMI 28.1 BP 138/90 H Blood Pressure Location Rt brachial Position Sitting Pulse 74 Pulse Source Pulse Oximeter Pulse Oximetry (%) 100 Oxygen Delivery Method Room Air Intake Visit Reasons: 6w Intake Note: Est pt for mgmt of GERD + Anemia. Recent HP tx (talicia) CC: Pt denies any GI changes or new concerns. Pt does confirm that she completed the abx as instructed. Pt states that she believes she had received a voicemail to schedule her colonoscopy but had forgotten to call back until she got here in the office. Asbestos Worker Required: No Accompanied by: Self / Same As Patient Allergies nut - unspecified (NUTS) Allergy (Severe, Verified 03/10/25 10:38) HIVES, ANAPHYLAXIS HPI HPI 6w: Details: LAST VISIT: Anemia Vitamin D deficiency GERD without esophagitis Colon cancer screening Irritable bowel syndrome (IBS) Gastroesophageal reflux disease Plan Will change treatment to Talicia. Patient will call us if she will have any issues getting medication approved or taking it. Patient will continue avoiding dietary triggers and late night snacking. Staying upright for minimum 3 hours after meals discussed with patient. Patient will take senna as needed. She will follow-up in our office in 6 weeks for re-evaluation. Patient will call our office when she finishes antibiotics to get PPI to take daily. Patient is agreeable to this plan and verbalizes understanding of instructions. She was given the opportunity to ask questions and all questions answered. ? Thank you for allowing me to participate in her care New iemxlpocxo-exeectxtt-ouzqzupzv 10-250-12.5 mg (Talicia) must administer with a meal/food 4 caps (4 x 10-250-12.5 mg) PO Q8H 168 ea 0RF 14 days sennosides (Natural Senna Laxative) 17.2 mg (2 x 8.6 mg) PO BEDTIME 60 tabs 3RF constipation K59.00 Discontinued pantoprazole Discontinued Reason: Doctor's Order 40 mg PO QAM 90 tabs 0RF K21.9 TODAY'S VISIT Patient is here today for follow-up. Patient reports that she has been doing well since she finished her treatment for H pylori. Currently patient is taking omeprazole daily. Patient states that she has been doing well. Denies any epigastric pain or discomfort. Occasional abdominal bloating depending on what she eats. Patient reports that she started eating better. Avoiding eating late at night. Patient finished her iron infusion it is and feeling stronger. Denies any GI concerning symptoms today. Patient reports that she is moving her bowels without any issues. Received fungal about colonoscopy, however patient forgot to return call back. Patient denies any issues with anesthesia. No history of sleep apnea. Not on any anticoagulation medication. Patient reports that she has been taking senna at bedtime 1-2 tablets depending on her bowel regimen. Patient denies melena, hematochezia, unintentional weight loss or ribbon like stools. No family history of CRC. Not on any anticoagulation therapy. [facility] Medical History (Updated 03/10/25 @ 19:17 by Elisa Rojas [facility]) History of Helicobacter pylori infection Degenerative joint disease of left foot DJD (degenerative joint disease), thoracolumbar Vitamin D deficiency Overweight (BMI 25.0-29.9) Irritable bowel syndrome (IBS) Obesity (BMI 30-39.9) Low back pain Migraine Hives Benign essential hypertension Hernia Scoliosis HTN (hypertension) Fibromyalgia Anemia Surgical History History of hernia surgery Hx of section Family History Maternal Aunt Cancer Social History Household Members: Children Housing: Apartment Are you a primary career services coordinator to a significant other at home: No Do you presently have visiting nurse or other home services: No Alcohol intake: never Patient Tobacco Use Status: Never used Tobacco e-Cigarette/Vaping Use: Never Used Second Hand Smoke Exposure: No service: No Current occupational status: disabled Cognitive needs: No Hearing needs: No Vision needs: No Review of Systems Const Denies weight gain and Denies weight loss ENT Reports no additional complaints, Denies dysphagia and Denies odynophagia Card Reports no additional complaints Resp Reports no additional complaints GI Denies abdominal pain, Denies belching, Denies melena, Reports bloating, Denies change in bowel habits, Denies dysphagia, Denies excessive flatus, Denies dyspepsia, Denies heartburn, Denies diarrhea, Denies loose stools, Denies nausea, Denies odynophagia and Denies vomiting Reports no additional complaints Musc Reports no additional complaints Neuro Reports no additional complaints Psych Reports no additional complaints Endo Reports no additional complaints Physical Exam Vital Signs: Last Vital Signs Pulse 74 03/10/25 10:51 BP 138/90 H 03/10/25 10:51 Pulse Ox 100 03/10/25 10:51 Oxygen Delivery Method Room Air 03/10/25 10:51 BMI result Body Mass Index 28.1 Const General: healthy appearing, no acute distress and well developed Nutritional Appearance: well nourished Orientation/consciousness: patient oriented x3 HEENT Head: Yes normal to inspection, Yes normocephalic and Yes atraumatic Face and sinus: Yes normal facial exam Mouth: Normal oral and palatal mucosa present Throat: Yes posterior oropharynx normal, Yes tonsils normal and Yes uvula midline Eyes General: appearance normal, both eyes and all related structures Neck Neck: Yes normal visual inspection, Yes full ROM and Yes trachea midline Thyroid: Thyroid normal Resp Effort & Inspection: normal respiratory effort, able to speak in complete sentences, no tracheal deviation and symmetric chest movement Auscultation: clear to auscultation bilaterally Cardio Rate: regular rate Heart sounds: S1 normal heart sound present and S2 normal heart sound present GI Inspection: Yes normal to inspection and No distended Palpation (GI): Soft to palpation, not firm, nontender and No hepatosplenomegaly present Auscultation: normal bowel sounds General: Yes no CVA tenderness Back/Spine/Pelvis Back: no CVA tenderness Skin General skin exam: elasticity normal, turgor normal and dry skin Neuro General: patient oriented x3 Psych Appearance: grossly normal Mental Status: mental status grossly normal Speech and movement: Normal speech and movement present Assessment & Plan Assessment & Plan (1) Irritable bowel syndrome (IBS): Code(s): K58.9 - Irritable bowel syndrome, unspecified Category: Medical Qualifiers: Irritable bowel syndrome type: unspecified Qualified Code(s): K58.9 - Irritable bowel syndrome without diarrhea (2) Colon cancer screening: Code(s): Z12.11 - Encounter for screening for malignant neoplasm of colon Category: Medical (3) GERD without esophagitis: Code(s): K21.9 - Gastro-esophageal reflux disease without esophagitis Category: Medical (4) History of Helicobacter pylori infection: Code(s): Z86.19 - Personal history of other infectious and parasitic diseases Category: Medical Plan Patient will continue omeprazole, however she will hold that for the of next 2 weeks so she can return to the office and do H pylori breath test. She can take in the meantime famotidine. Stop famotidine 24 hours before testing and 1 hour NPO before testing. Continue senna. What to expect before during and after procedure discussed with patient. Due to her is history of H pylori, patient will be sent for upper endoscopy. To rule out gastritis, esophagitis, duodenitis, gastric or peptic ulcer, Petersen's, H pylori. Stressed the importance of good bowel prep and clear liquid diet day before procedure. I will see patient after the procedure, however patient was encouraged to call us if she will have any GI concerning symptoms. Patient is agreeable to this plan and verbalizes understanding of instructions. She was given the opportunity to ask questions and all questions answered. Thank you for allowing me to participate in her care Orders: Orders H Pylori Breath Test Today K21.9 - Gastro-esophageal reflux disease without esophagitis Medications: New famotidine (Pepcid) 20 mg PO BID 30 tabs 0RF K29.70 - Gastritis, unspecified, without bleeding bisacodyl (Dulcolax (bisacodyl)) take 4 tabs at noon the day before your colonoscopy 20 mg (4 x 5 mg) PO ONCE 4 tabs 0RF constipation 1 day Z12.11 - Encounter for screening for malignant neoplasm of colon polyethylene glycol 3350 (Miralax) As directed by gastroenterology department at [facility] 238 grams PO ONCE 238 grams 0RF Z12.11 - Encounter for screening for malignant neoplasm of colon Coding Level of Care Code Est Pt Level 4 (68999) Complex EM visit Add On G2211 Diagnoses Irritable bowel syndrome, unspecified type K58.9 Irritable bowel syndrome type: unspecified Colon cancer screening Z12.11 GERD without esophagitis K21.9 History of Helicobacter pylori infection Z86.19 Time Spent (min) 35 Comment 25 minutes spent with patient and additional 10 minutes spent reviewing her re cords
[2025-03-10 10:51] VITALS: BP 138/90; PULSE 74; O2SAT 100; BMI 28.1
== END 2025-03-10 11:16 | disposition home or self-care (01) ==
LOC: HO.HGI 10:25
PROVIDERS: PCP Internal Medicine; Visit Provider Nurse Practitioner Family
DX: Z01.818 Encounter for other preprocedural examination (principal); Z12.11 Encounter for screening for malignant neoplasm of colon; K58.9 Irritable bowel syndrome, unspecified; K21.9 Gastro-esophageal reflux disease without esophagitis; Z86.19 Personal history of other infectious and parasitic diseases
CPT/HCPCS: 99214

== ENCOUNTER → 2025-03-10 10:24 | Outpatient (BNVA) | payer OTHER, SELFPAY | PROVIDERS: PCP Internal Medicine; Visit Provider Nurse Practitioner Family | DX: Z01.818 Encounter for other preprocedural examination (principal); Z12.11 Encounter for screening for malignant neoplasm of colon; K21.9 Gastro-esophageal reflux disease without esophagitis; K58.9 Irritable bowel syndrome, unspecified; Z86.19 Personal history of other infectious and parasitic diseases | CPT/HCPCS: 99212 ==

== ENCOUNTER 2025-04-30 14:04 | Outpatient (AMB) | payer OTHER, SELFPAY ==
[2025-04-30 14:10] VITALS: BP 138/80; PULSE 76; RESP 18; O2SAT 97; BMI 28.5
--- NOTE | 2025-04-30 14:10 | A.OFFPC_ITS ---
Vital Signs 04/30/25 14:10 Height 5 ft 9 in Weight 193 lb BMI 28.5 BP 138/80 Blood Pressure Location Lt brachial Position Sitting Respiration 18 Pulse 76 Pulse Source Pulse Oximeter Temp Source Temporal Artery Scan Pulse Oximetry (%) 97 Oxygen Delivery Method Room Air Intake Visit Reasons: 3 month f/u/BP Document Review Specialist Required: No Accompanied by: Self / Same As Patient Allergies nut - unspecified (NUTS) Allergy (Severe, Verified 04/30/25 14:30) HIVES, ANAPHYLAXIS Medication List - Last Reconciled 04/30/25 by SUSSY Castrejon amlodipine 2.5 mg PO DAILY 90 days ascorbic acid (vitamin C) 500 mg PO BID bisacodyl (Dulcolax (bisacodyl)) 20 mg (4 x 5 mg) PO ONCE 1 day [BLD PRESSURE MONITOR CUFF Use as directed (medium size)] cholecalciferol (vitamin D3) 100 mcg (2 x 50 mcg (2,000 unit)) PO DAILY famotidine (Pepcid) 20 mg PO BID ferrous sulfate 325 mg PO DAILY hydroxyzine HCl 25 mg PO BID PRN irbesartan 300 mg PO DAILY 90 days lorazepam 1 mg PO BID PRN 30 days omeprazole 40 mg PO DAILY oxycodone-acetaminophen 5-325 mg 1 tab PO .1 to 2 times a day PRN 28 days polyethylene glycol 3350 (Miralax) 238 grams PO ONCE valacyclovir 500 mg PO DAILY 30 days Tobacco use date assessed: 04/30/25 Dental Screening Dental Screen Date: 04/30/25 Did you have a dental visit in the last 12 months?: No Did you have a dental problem in the last 6 months where you did not have access to dental care?: No Was dental information given to patient?: No HPI 3 month f/u/BP HPI Details The patient is a 50-year-old female presenting for a three-month follow-up visit for blood pressure management. Her blood pressure today was 138/80 mmHg, but she reports it is sometimes high. She admits to intermittent medication non-adherence, stating she sometimes forgets to take her medication, including this morning. 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 Her cholesterol was last noted at 101, which was considered not concerning. She reports a new onset of toothache for the past couple of days, located on the left side where she is missing molars. The patient is using Tylenol for pain and has missed her last dental appointment. The patient also complains of worsening chronic back pain that now radiates to her leg. She has a history of arthritis and experiences significant pain, particularly in the morning, making it difficult to get out of bed. She also has foot pain, which she believes is from arthritis and is exacerbated by walking. recheck 150/88 mmhg, did not take her medication as yet Positive dental infection on exam. [facility] Medical History History of Helicobacter pylori infection Degenerative joint disease of left foot DJD (degenerative joint disease), thoracolumbar Vitamin D deficiency Overweight (BMI 25.0-29.9) Irritable bowel syndrome (IBS) Obesity (BMI 30-39.9) Low back pain Migraine Hives Benign essential hypertension Hernia Scoliosis HTN (hypertension) Fibromyalgia Anemia Surgical History History of hernia surgery Hx of section Family History Maternal Aunt Cancer Social History Household Members: Children Housing: Apartment Are you a primary geriatric personal care aide to a significant other at home: No Do you presently have visiting nurse or other home services: No Alcohol intake: never Patient Tobacco Use Status: Never used Tobacco e-Cigarette/Vaping Use: Never Used Second Hand Smoke Exposure: No service: No Current occupational status: disabled Cognitive needs: No Hearing needs: No Vision needs: No Questionnaire PHQ-9 Over the last 2 weeks, how often have you been bothered by any of the following problems? Depression Screening Interpretation: Positive Depression Screening Follow-up: Existing condition and Follow-up Visit Requested Depression Screening Done: Yes Source: Developed by Drs. Barrera Ruiz, Marlene Goldberg, Mesfin De Anda and colleagues, with an educational yuriy from [employer]. Thrive Questionnaire Date Thrive assessed: 04/30/25 I am a: Patient What is your living situation today?: I have a steady place to live Within the past 12 months, did the food you bought not last and you didn't have the money to get more?: Never true Within the past 12 months, did you worry whether your food would run out before you got money to buy more?: Never true Do you have trouble paying for medicines?: No Do you have trouble getting transportation to medical appointments?: I choose not to answer this question Do you have trouble paying your heating and electricity bill?: No Do you have trouble taking care of your child, family member or friend?: No Do you have trouble with day-to-day activities such as bathing, preparing meals, shopping, managing finances, etc.?: I choose not to answer this question Are you currently unemployed and looking for a job?: Yes Are you interested in more education?: No Please select the resources that you would like help with: None Currently or been in a relationship where the following occur: I choose not to answer THRIVE Score: 0 SNOW-7 AMB Questionnaire SNOW-7 Date SNOW - 7 assessed: 09/24/24 Source: Developed by Drs. Barrera Ruiz, Marlene Goldberg, Mesfin De Anda and colleagues, with an educational yuriy from [employer]. Review of Systems Const Denies chills, Denies fever(s) and Denies headache(s) ENT Denies dysphagia, Denies dizziness, Denies otalgia, Denies headache(s), Denies neck pain, Denies odynophagia and Denies sore throat Card Denies chest pain, Denies irregular heart rhythm and Denies palpitations Resp Denies chest congestion and Denies cough GI Reports constipation, Denies dysphagia, Denies heartburn, Reports loose stools (occasional), Denies nausea, Denies odynophagia and Denies vomiting Denies hematuria, Denies difficulty voiding, Denies dysuria and Denies urinary urgency Musc Reports back pain (chronic), Denies arthralgias, Denies neck pain and Reports radiating pain into limb (Left side intermittently) Skin/Breast Denies rash Neuro Denies dizziness, Denies headache(s) and Denies paresthesias Psych Reports anxiety and Reports depression Endo Denies palpitations Matteo/Lymph Denies easy bruising Physical exam (Primary Care) Vital Signs: Last Vital Signs Pulse 76 04/30/25 14:10 Resp 18 04/30/25 14:10 BP 138/80 04/30/25 14:10 Pulse Ox 97 04/30/25 14:10 Oxygen Delivery Method Room Air 04/30/25 14:10 BMI result Body Mass Index 28.5 Tobacco/Smoking Status: Tobacco use Status Tobacco use date assessed 04/30/25 04/30/25 14:17 Patient Tobacco Use Status Never used Tobacco 04/30/25 14:17 e-Cigarette/Vaping Use Never Used 04/30/25 14:17 Depression Screening Interpretation: Positive Depression Screening Follow-up: Existing condition and Follow-up Visit Requested Thrive Assessment: Date of Thrive Assessment Date Thrive assessed 04/30/25 04/30/25 14:17 Currently or been in a relationship where the following occur: I choose not to answer Const General: no acute distress and alert HENMT Ears: TM's normal bilaterally and EAC's normal Throat: Yes posterior oropharynx normal and Yes tonsils normal (no TP congestion) Neck Neck: Yes supple and No lymphadenopathy Thyroid: Thyroid normal Resp Auscultation: clear to auscultation bilaterally, no rales and no wheezes Cardio Rate: regular rate Rhythm: regular rhythm Heart sounds: Murmur heart sound present systolic soft and II/ ( flow murmur ) GI Palpation (GI): Soft to palpation and nontender Auscultation: normal bowel sounds General: Yes no CVA tenderness Back/Spine/Pelvis Back: no CVA tenderness Thoracic/Lumbar Spine: Thoracic/lumbar scoliosis, thoracic spinal tenderness and lumbar spinal tenderness Skin Rashes: no rashes Extrem General: Yes no clubbing, cyanosis or edema Left lower extremity: foot Details: tenderness Location: of the dorsal foot and of the calcaneus and no edema Results Reviewed Results Reviewed: Laboratory Tests 01/21/25 10:23 WBC 6.0 RBC 4.44 Hgb 12.5 D Hct 38.3 D MCV 86.3 MCH 28.2 MCHC 32.6 RDW 15.8 Plt Count 206 MPV 10.3 Sodium 140 Potassium 4.2 Chloride 105 Carbon Dioxide 27 Anion Gap 12 BUN 13 Creatinine 0.73 Estim Creat Clear Calc 110.9 Estimated GFR > 60 Random Glucose 103 Calcium 9.3 Ferritin 106 Total Bilirubin 0.4 AST 20 ALT 16 Alkaline Phosphatase 46 Total Protein 7.2 Albumin 4.4 Coding Level of Care Code Est Pt Level 4 (69248) Diagnoses Iron deficiency anemia, unspecified iron deficiency anemia type D50.9 Anemia type: iron deficiency Iron deficiency anemia type: unspecified iron deficiency Benign essential hypertension I10 Migraine without status migrainosus, not intractable, unspecified migraine type G43.909 Migraine type: unspecified Status migrainosus presence: without status migrainosus Intractability: not intractable Cardiac murmur R01.1 Vitamin D deficiency E55.9 DJD (degenerative joint disease), thoracolumbar M51.35 Osteoarthritis of left foot, unspecified osteoarthritis type M19.072 Osteoarthritis type: unspecified Irritable bowel syndrome, unspecified type K58.9 Irritable bowel syndrome type: unspecified GERD without esophagitis K21.9 Hives L50.9 Anxiety F41.9 Episode of recurrent major depressive disorder, unspecified depression episode severity F33.9 Depression Type: major depressive disorder Major depression recurrence: recurrent Active/Remission status: currently active Major depression episode severity: unspecified Overweight (BMI 25.0-29.9) E66.3 Dental infection K04.7 Genital herpes simplex, unspecified site A60.00 Herpes simplex infection site: unspecified Time Spent (min) 41 Assessment & Plan Assessment & Plan (1) Anemia: Code(s): D64.9 - Anemia, unspecified Category: Medical Qualifiers: Anemia type: iron deficiency Iron deficiency anemia type: unspecified iron deficiency Qualified Code(s): D50.9 - Iron deficiency anemia, unspecified Plan: Patient has longstanding anemia may or H&H was 8.7/29, at that time she was complaining of being fatigued and was not compliant with her iron tablet consistently. Patient was urged to follow up with Hematology. She had received IV iron with positive effects since. Her latest H&H 12.5/38.3 on January 2025. The patient was urged by Hematology to continue ferrous sulfate 325 mg daily, which has worked for the patient when she is consistently taking it. Patient isn't feeling fatigued today, we will reordered labs for her follow up appointment. (2) Benign essential hypertension: Code(s): I10 - Essential (primary) hypertension Category: Medical Plan: Blood pressure is elevated in office today. The patient has not taken her blood pressure medication today. Encouraged medication compliance. Reinforced low sodium diet - goal is systolic BP of 120 mm or less Continue Irbesartan 300 mg QD and Amlodipine 2.5 mg QD (3) Migraine: Code(s): G43.909 - Migraine, unspecified, not intractable, without status migrainosus Category: Medical Qualifiers: Migraine type: unspecified Status migrainosus presence: without status migrainosus Intractability: not intractable Qualified Code(s): G43.909 - Migraine, unspecified, not intractable, without status migrainosus Plan: Stable lately Reinforced avoidance of migraine triggers She used to take Fioricet PRN in the past but has not needed to take the Rx in a while now (4) Cardiac murmur: Code(s): R01.1 - Cardiac murmur, unspecified Category: Medical Plan: (+) systolic murmur noted on auscultation on previous visit She is advised that this could be a flow murmur due to her anemia and thin body habitus, however the patient was sent for an echocardiogram Echocardiogram on 11/20/2024 showed normal left ventricle size with an EF of 60- 65%. She remains asymptomatic. (5) Vitamin D deficiency: Code(s): E55.9 - Vitamin D deficiency, unspecified Category: Medical Plan: Continue Vitamin D3 2000 units QD (6) DJD (degenerative joint disease), thoracolumbar: Code(s): M51.35 - Other intervertebral disc degeneration, thoracolumbar region Category: Medical Plan: Thoracolumbar spine x-rays done back in September 2023 revealed (+) marked S-shaped thoracolumbar scoliosis with a rotatory component which limits visualization of mid to lower thoracic vertebral bodies on the lateral view. There are moderate multilevel degenerative changes in the thoracic spine and multilevel lumbar spondylosis with [id number] loss of disc space height at L5-S1 The patient reports worsening chronic back pain with radiation to the leg, as well as foot pain, which she attributes to arthritis. Gabapentin at a low dose was prescribed for pain, to be taken at bedtime due to potential drowsiness. The starting dose is one to two capsules as needed for pain, with instructions to increase to two if needed and to notify the office for a dose adjustment if she runs out of medication too quickly. Reinforced activity and weight-lifting restrictions Continue Oxycodone-Acetaminophen 5-325 mg 1 to 2 times a day as needed (7) Degenerative joint disease of left foot: Code(s): M19.072 - Primary osteoarthritis, left ankle and foot Category: Medical Qualifiers: Osteoarthritis type: unspecified Qualified Code(s): M19.072 - Primary osteoarthritis, left ankle and foot Plan: Left foot x-rays done back in September 2023 revealed (+) mild degenerative changes in the foot, with a small plantar calcaneal spur Continue current pain medication regimen. (8) Irritable bowel syndrome (IBS): Code(s): K58.9 - Irritable bowel syndrome, unspecified Category: Medical Qualifiers: Irritable bowel syndrome type: unspecified Qualified Code(s): K58.9 - Irritable bowel syndrome without diarrhea Plan: The patient was diagnosed with H pylori and was treated with Talicia and since reports that she has been feeling much better. Even though, she does have the intermittent stomach irritation. (9) GERD without esophagitis: Code(s): K21.9 - Gastro-esophageal reflux disease without esophagitis Category: Medical Plan: Dietary restrictions reinforced Continue omeprazole 40 mg daily, famotidine 20 mg b.i.d. 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 once a month but has not gotten her injections in a while now States that this has been stable lately (11) Anxiety: Code(s): F41.9 - Anxiety disorder, unspecified Category: Medical Plan: Encouraged CBT Denies SI/HI Continue Lorazepam 1 mg BID PRN (12) Depression: Code(s): F32.A - Depression, unspecified Category: Medical Qualifiers: Depression Type: major depressive disorder Major depression recurrence: recurrent Active/Remission status: currently active Major depression episode severity: unspecified Qualified Code(s): F33.9 - Major depressive disorder, re current, unspecified Plan: Patient used to take Escitalopram 10 mg QD but has not had it refilled or taken it in almost 2 years now - thinks that she has been doing okay without it so far although she did go to the ER back in April 2024 for increased anxiety and panic attack and if she continues to experience frequent flare ups of her anxie ty, should consider going back on some maintenance Rx (13) Overweight (BMI 25.0-29.9): Code(s): E66.3 - Overweight Category: Medical Plan: Reinforced diet/exercise as tolerated/lose weight (14) Dental infection: Code(s): K04.7 - Periapical abscess without sinus Category: Medical Plan: The patient reports a toothache for a few days. Examination revealed redness in the painful area, suggestive of a possible infection. A course of antibiotics (Augmentin) was prescribed to treat the potential infection as a temporary measure. The patient was advised to call her dentist for a definitive evaluation and treatment. (15) Genital herpes: Code(s): A60.00 - Herpesviral infection of urogenital system, unspecified Category: Medical Qualifiers: Herpes simplex infection site: unspecified Qualified Code(s): A60.00 - Herpesviral infection of urogenital system, unspecified Plan: Denies any recent flare-ups. Continue valacyclovir 500 mg daily Plan Follow up in 3 months Orders: Orders Complete Blood Count Auto Diff 3 Months D50.9 - Iron deficiency anemia, unspecified, E55.9 - Vitamin D deficiency, unspecified, E66.9 - Obesity, unspecified, F33.9 - Major depressive disorder, recurrent, unspecified, F41.9 - Anxiety disorder, unspecified, G43.909 - Migraine, unspecified, not intractable, without status migrainosus, I10 - Essential (primary) hypertension, K21.9 - Gastro-esophageal reflux disease without esophagitis, M41.9 - Scoliosis, unspecified, R53.83 - Other fatigue Lipid Panel 3 Months D50.9 - Iron deficiency anemia, unspecified, E55.9 - Vitamin D deficiency, unspecified, E66.9 - Obesity, unspecified, F33.9 - Major depressive disorder, recurrent, unspecified, F41.9 - Anxiety disorder, unspecified, G43.909 - Migraine, unspecified, not intractable, without status migrainosus, I10 - Essential (primary) hypertension, K21.9 - Gastro-esophageal reflux disease without esophagitis, M41.9 - Scoliosis, unspecified, R53.83 - Other fatigue Comprehensive [place]. Panel Fast 3 Months D50.9 - Iron deficiency anemia, un specified, E55.9 - Vitamin D deficiency, unspecified, E66.9 - Obesity, unspecified, F33.9 - Major depressive disorder, recurrent, unspecified, F41.9 - Anxiety disorder, unspecified, G43.909 - Migraine, unspecified, not intractable, without status migrainosus, I10 - Essential (primary) hypertension, K21.9 - Gastro-esophageal reflux disease without esophagitis, M41.9 - Scoliosis, unspecified, R53.83 - Other fatigue UA CC w/rflx Micro + Cult 3 Months D50.9 - Iron deficiency anemia, unspecified, E55.9 - Vitamin D deficiency, unspecified, E66.9 - Obesity, unspecified, F33.9 - Major depressive disorder, recurrent, unspecified, F41.9 - Anxiety disorder, unspecified, G43.909 - Migraine, unspecified, not intractable, without status migrainosus, I10 - Essential (primary) hypertension, K21.9 - Gastro-esophageal reflux disease without esophagitis, M41.9 - Scoliosis, unspecified, R53.83 - Other fatigue TSH reflex Free T4 3 Months D50.9 - Iron deficiency anemia, unspecified, E55.9 - Vitamin D deficiency, unspecified, E66.9 - Obesity, unspecified, F33.9 - Major depressive disorder, recurrent, unspecified, F41.9 - Anxiety disorder, unspecified, G43.909 - Migraine, unspecified, not intractable, without status migrainosus, I10 - Essential (primary) hypertension, K21.9 - Gastro-esophageal reflux disease without esophagitis, M41.9 - Scoliosis, unspecified, R53.83 - Other fatigue Medications: New amoxicillin-pot clavulanate 875-125 mg 1 tab PO BID 14 tabs 0RF 7 days gabapentin take 1-2 capsule at bedtime for pain as needed 100 mg PO BEDTIME 30 caps 2RF
== END 2025-04-30 15:22 | disposition home or self-care (01) ==
LOC: HO.HMCH 14:04
PROVIDERS: PCP Internal Medicine
DX: D50.9 Iron deficiency anemia, unspecified (principal); I10 Essential (primary) hypertension; G43.909 Migraine, unspecified, not intractable, without status migrainosus; R01.1 Cardiac murmur, unspecified; E55.9 Vitamin D deficiency, unspecified; M51.35 Other intervertebral disc degeneration, thoracolumbar region; M19.072 Primary osteoarthritis, left ankle and foot; K58.9 Irritable bowel syndrome, unspecified; K21.9 Gastro-esophageal reflux disease without esophagitis; L50.9 Urticaria, unspecified; F41.9 Anxiety disorder, unspecified; F33.9 Major depressive disorder, recurrent, unspecified; E66.3 Overweight; K04.7 Periapical abscess without sinus; A60.00 Herpesviral infection of urogenital system, unspecified

== ENCOUNTER → 2025-04-30 14:04 | Outpatient (BNVA) | payer OTHER, SELFPAY | PROVIDERS: PCP Internal Medicine | DX: I10 Essential (primary) hypertension (principal); G43.909 Migraine, unspecified, not intractable, without status migrainosus; D50.9 Iron deficiency anemia, unspecified; R01.1 Cardiac murmur, unspecified; E55.9 Vitamin D deficiency, unspecified; M51.35 Other intervertebral disc degeneration, thoracolumbar region; M19.072 Primary osteoarthritis, left ankle and foot; K58.9 Irritable bowel syndrome, unspecified; K21.9 Gastro-esophageal reflux disease without esophagitis; L50.9 Urticaria, unspecified; F41.9 Anxiety disorder, unspecified; F33.9 Major depressive disorder, recurrent, unspecified; E66.3 Overweight; K04.7 Periapical abscess without sinus; A60.00 Herpesviral infection of urogenital system, unspecified | CPT/HCPCS: 99212 ==